=== PATIENT | female | born 1925 | race Caucasian/White ===

== ENCOUNTER 2016-11-12 09:52 | Inpatient (IN) ==
[2016-11-12] MEDS ORDERED: ONDANSETRON 4 MG/2 ML VIAL IV STA (10:36)
[2016-11-12 10:41] LABS: Basophils # 0.1 10*3/uL (0.0-0.2); Basophils % 0.5 % (0.0-0.8); Eosinophils # 0.1 10*3/uL (0.0-0.87); Eosinophils % 0.4 % (0.00-10.9); Hematocrit 42.3 VOL% (35.7-47.0); Hemoglobin 14.8 GM/DL (12.0-16.0); Immature Granulocytes % 0.5 %; Immature Granulocytes Absolute 0.07 #; Lymphocytes # 1.8 10*3/uL (1.4-4.0); Lymphocytes % 11.7 % (21.3-54.2); Mean Corpuscular Hemoglobin 31 PG (27-34); Mean Corpuscular Volume 89.4 FL (87-102); Mean Platelet Volume 9.6 FL (9.6-12.0); Monocytes # 2.2 10*3/uL (0.11-0.8); Monocytes % 14.2 % (1.7-12.7); Neutrophils # 11.3 10*3/uL (1.4-7.4); Neutrophils % 72.7 % (38.7-73.9); Platelet Count 215 T/CUMM (130-400); Red Blood Count 4.73 MC/CUMM (3.8-5.5); Red Cell Distribution Width 13.2 % (9.3-17.3); White Blood Count 15.5 T/CUMM (4-12)
[2016-11-12 10:47] LABS: Apearance,Urine CLEAR (Clear); Bilirubin,Urine Negative (Negative); Blood, Urine Negative (Negative); Glucose,Urine (UA) Negative (Negative); Ketones,Urine Negative (Negative); Nitrite,Urine Negative (Negative); Protein,Urine Negative; RBC,Urine <1 /HPF (0-4); Urine Color Straw (Yellow); Urine Specific Gravity 1.004 (1.001-1.035); Urine Urobilinogen < 2.0 EU/DL (0.2-1.0); WBC,Urine <1 /HPF (0-6)
[2016-11-12] MEDS ORDERED: ONDANSETRON 4 MG/2 ML VIAL ONE (10:47)
[2016-11-12 10:52] LABS: Albumin 3.5 G/DL (3.4-5.0); Bilirubin,Total 0.7 MG/DL (0.2-1.0); Calcium 9.6 MG/DL (8.5-10.1); Osmolality,Calculated 268.5 MOS/KG (273-304); Potassium 3.2 MMOL/L (3.5-5.1); Total Protein 8.8 G/DL (6.4-8.3)
--- NOTE | 2016-11-12 11:13 | Emergency Department Note ---
Arrival - Arrival Chief Complaint: Non-Specific Stated Complaint: rectal pain ED Nursing Triage Note: 1-WEEK HX OF RECTAL PAIN-DENIES BLEEDING-DENIES CONSTIPATION Mode of Arrival: Stretcher Source: Patient Time Seen by Provider: 11/12/16 10:08 - History of Present Illness HPI Narrative: 89 y/o white female presents to the ER complaining of rectal pain and abdominal distention. Symptoms started 1 week ago. Describes rectal pain as a fullness. Denies rectal bleeding, abdominal pain, fever, or N/V. Past medical history significant for appendectomy, A-fib, CHF, total hyst, HTN, GERD, and hypothyroidism. Currently taking Eliquis for her A-fib. Primary Care Physician: Dr. Campuzano GI: Dr. John Cardiology: Dr. Tobar Onset (ago): week(s) (1) Consistency: constant Severity: mild Quality: fullness Allergies/Adverse Reactions: Allergies Allergy/AdvReac Type Severity Reaction Status Date / Time acetaminophen [From Lortab] Allergy HIVES Verified 09/21/16 11:00 hydrocodone [From Lortab] Allergy HIVES Verified 09/21/16 11:00 Home Medications: Home Medications Medication Instructions Recorded Confirmed Type Apixaban [Eliquis] 2.5 mg PO BID 09/21/16 11/12/16 History Aspirin EC Tab 81 mg PO QPM 09/21/16 11/12/16 History Calcium (Carb)/Vit D 600-400 2 tablet PO QPM 09/21/16 11/12/16 History [Caltrate 600 + D] Carvedilol [Coreg] 3.125 mg PO BID 09/21/16 11/12/16 History Chlorthalidone 25 mg PO QAM 09/21/16 11/12/16 History Esomeprazole Magnesium 40 mg PO QPM 09/21/16 11/12/16 History [Esomeprazole] Furosemide Tab [Lasix Tab] 40 mg PO QAM 09/21/16 11/12/16 History Gabapentin Cap/Tab [Neurontin 300 mg PO TID 09/21/16 11/12/16 History Cap/Tab] Montelukast Tab [Singulair Tab] 10 mg PO BEDTIME 09/21/16 11/12/16 History Multivitamin [Multivitamins] 1 each PO QPM 09/21/16 11/12/16 History Potassium Chloride Cap/Tab [K Dur] 20 meq PO BID 09/21/16 11/12/16 History Thyroid,Pork [[place] Thyroid] 90 mg PO QAM 09/21/16 11/12/16 History Tramadol HCl [Tramadol Tab] 50 mg PO Q6H PRN 09/21/16 11/12/16 History Review of System - Review of System 12 point system: reviewed and no additional remarkable complaints except as stated - Review of System Gastrointestinal: Present: abdominal pain (distention ), other (rectal pain ) Exam Vital Signs: Vital Signs Temperature 97.6 F 11/12/16 11:00 Pulse Rate 83 11/12/16 12:14 Respiratory Rate 20 11/12/16 12:14 Blood Pressure 163/102 11/12/16 12:14 O2 Sat by Pulse Oximetry 98 11/12/16 12:14 - General General appearance: alert, in no apparent distress - ENT ENT exam: Present: normal exam, normal oropharynx, mucous membranes moist - Chest Chest inspection: Present: normal inspection - Respiratory Respiratory exam: Present: normal lung sounds bilaterally - Cardiovascular Cardiovascular exam: Present: regular rate, normal rhythm, normal heart sounds - Abdominal Exam Abdominal exam: Present: soft, normal bowel sounds. Absent: tenderness - Rectal Exam Rectal exam: Present: normal rectal tone, heme (+) stool - Extremities Exam Extremities exam: Present: normal inspection, full ROM - Neurological Exam Neurological exam: Present: alert, oriented X3 - Psychiatric Psychiatric exam: Present: normal affect, normal mood - Skin Skin exam: Present: warm, dry Course - Consultations Consultation #1: Dr. Wright Time: 12:05 (Discussed with Dr. Wright. Dr. Wright will come see patient in Er. ) Consultation #2: Hospitalist Time: 12:30 (Will admit to Hospitalist ) Results - Labs CBC & BMP: 11/12/16 10:00 11/12/16 10:00 Lab Results: I have reviewed the patients labs - Diagnostic Findings Procedure: CT Abdomen and Pelvis: image reviewed by me, report reviewed by me ( 1. within the left pelvis, immediately adjacent to the sigmoid colon there is 5.6 x 3.4 cm thick-walled fluid collection containing air. There is extensive diverticulosis. This most likely represents a diverticulitis, with perforation and abscess formation. A zeynep likey consideration is a nectrotic colonic malignancy. ) Disposition Clinical Impression: Diverticulitis, Abscess Disposition: Still a Patient Condition: Stable
--- NOTE | 2016-11-12 11:31 | CT Report ---
CT of the abdomen and pelvis with intravenous contrast. No oral contrast was administered. 100 cc Omni 350. Axial images were obtained with sagittal and coronal reconstructions. No previous study. Indication: Abdominal distention. Rectal pain. Hematochezia. The heart is enlarged. There is coronary artery calcification. There is no pericardial effusion. There is no pleural effusion. There is scarring within the lung bases. There is a borderline enlarged 10 mm lymph node in the right inferior hilum. The liver is normal in size and density. There are no focal liver lesions identified. There is no intrahepatic biliary ductal dilatation. The spleen is normal in size. There is a small hiatal hernia. There is pancreatic atrophy present. There is no adrenal enlargement. The kidneys demonstrate mild bilateral cortical thinning and multiple cortical cysts are present. No hydronephrosis. No hydroureter. The urinary bladder presents a normal appearance. The abdominal aorta is of normal caliber. It is tortuous and contains calcific plaque within its wall. There is an umbilical hernia which contains only fat. The gastric contour is grossly normal. The loops of small intestine are not dilated. The terminal ileum presents a normal appearance. The appendix is not discretely seen. Within the transverse colon, diverticula are identified. Within the descending colon and sigmoid colon, diverticuli are identified. Within the left pelvis, immediately adjacent to the sigmoid colon, there is a 5.6 x 3.8 cm fluid collection with a thick wall which contains aorta. There is surrounding inflammation. I suspect that it communicates with the colon, but without contrast, that cannot be completely determined. The pelvic organs appear to have been removed. No free fluid is noted within the pelvis, and no free air is identified. Within the spinal column there is scoliosis and degenerative change, with anterior wedging at the thoracolumbar junction. There is malalignment with grade 1 spondylolisthesis of L5 on S1. The osseous structures are diffusely demineralized, and orthopedic hardware is present in the left femur. Impression: 1. Within the left pelvis, immediately adjacent to the sigmoid colon, there is a 5.6 x 3.4 cm thick-walled fluid collection containing air. There is extensive diverticulosis. This most likely represents a diverticulitis, with perforation and abscess formation. A less likely consideration is a necrotic colonic malignancy. 2. Bilateral renal cysts. 3. Hiatal hernia. 4. Umbilical hernia containing only fat. 5. Borderline enlarged right infrahilar lymph node. The CT exam was performed using one or more of the following dose reduction techniques: Automated exposure control, adjustment of the mA and/or kV according to patient size, or use of iterative reconstruction technique. PROCEDURE INTERPRETED AT [facility] DEPARTMENT OF RADIOLOGY Final Report Signed by: Dr. Dariela Lynn
[2016-11-12] MEDS ORDERED: PIPERACILLIN/TAZOBACTAM 3,375 MG in SODIUM CHLORIDE 0.9% 100 ML IV STA (11:59)
[2016-11-12] MEDS ORDERED: SODIUM CHLORIDE 0.9% 500 ML IV STA (11:59)
[2016-11-12] MEDS ORDERED: metroNIDAZOLE INJ 500 MG in PREMIX 1 EACH IV STA (11:59)
[2016-11-12] MEDS ORDERED: metroNIDAZOLE 500 MG/100 ML PREMIX IV ONE (12:03)
[2016-11-12] MEDS ORDERED: PANTOPRAZOLE 40 MG VIAL IV ONE (12:54)
[2016-11-12] MEDS ORDERED: SODIUM CHLORIDE 0.9% 1,000 ML IV SCH (13:00)
[2016-11-12] MEDS ORDERED: PIPERACILLIN/TAZOBACTAM 3,375 MG in SODIUM CHLORIDE 0.9% 100 ML IV SCH (13:00)
[2016-11-12 13:15] LABS: Risk Ratio 1.89; Thyroid Stimulating Hormone 0.884 uIU/ml (0.358-3.74); VLDL CHOLESTEROL 16.4 MG/DL
--- NOTE | 2016-11-12 13:29 | Hospitalist History & Physical ---
<Nish King - Last Filed: 11/12/16 13:16> Assessment and Plan (1) Atrial fibrillation Status: Acute Assessment and plan: The patient currently takes Eliquis for the management of her atrial fibrillation. We will Place Eliquis on hold for now due to the presence of an active bleed. We will consult cardiology to evaluate and assist during the clinical encounter. Current Visit: Yes (2) Hypokalemia Status: Acute Assessment and plan: Potassium noted 3.2. We will correct and recheck in a.m. Current Visit: Yes (3) Abscess Status: Acute Assessment and plan: The patient was seen and evaluated by surgery. The plan is to possibly perform a percutaneous drainage home tomorrow. We will stop Eliquis for now. We will start empiric antibiotics, cefepime and Flagyl. Current Visit: Yes (4) Diverticulitis Status: Acute Assessment and plan: We will start empiric antibiotics and gently rehydrate. We will consult GI to evaluate and assist in the clinical encounter. Current Visit: Yes History of Present Illness Chief complaint: Rectal pain and abdominal distention History of present illness: This is a very pleasant 89-year-old female that presented to the [facility] this afternoon for the evaluation of rectal pain and abdominal distention. The patient has a very complex medical history significant for: Congestive heart failure, atrial fibrillation, hypertension, hypothyroidism, and diverticulitis. The patient reports a surgical history of appendectomy and hysterectomy. The patient reported the onset of symptoms 1 week prior to presentation. She describes the rectal pain as a feeling of continuous "fullness" accompanied with abdominal distention. Pertinent positives include: Rectal pain and abdominal distention; pertinent negatives include: Fever, nausea, vomiting, rectal bleeding, chills, and flatulence. The patient was noted to be grossly hypertensive at the time of presentation, with the blood pressure noted at 163/102. Upon rectal examination, stools were noted to be heme positive. Labs were obtained; hematology panel reported a white blood cell count of 15.5, hemoglobin of 14.8, hematocrit of 42.3, and platelet count of 215. Chemistry panel was obtained which reported: Sodium at 132, potassium at 3.2, chloride at 92, BUN at 21, creatinine at 1.10, glucose at 133, calcium at 9.6, calculated osmolality at 268.5, total protein at 8.8, total bilirubin at 0.70, AST at 15, ALT at 18, alkaline phosphatase at 93, albumin at 3.5, globulin at 5.3. Lipid panel reported triglycerides at 82, cholesterol at 121, LDL cholesterol at 54, VLDL cholesterol at 60.4, and HDL cholesterol at 64. TSH was noted at 0.884. Urinalysis was essentially negative however urobilinogen was noted at greater than 2. CT abdomen pelvis was obtained which reported a 5.6 x 3.4 cm thick walled fluid collection containing air within the left pelvis immediately adjacent to the sigmoid colon. There was extensive diverticulosis which most likely represented diverticulitis with perforation and abscess formation. In addition CT abdomen and pelvis reported bilateral renal cyst, hiatal hernia, umbilical hernia containing only fat, and borderline enlarged right infrahilar lymph node. After brief discussion with NATHAN Dolan and Dr. Burnett, the patient will be admitted to hospitalist services for continuation of care. A surgical consult has been requested and the patient was evaluated by Dr. Wright in the fast track area. We will consult cardiology and gastroenterology to evaluate and assist during the clinical encounter. Home Medications Medication Instructions Recorded Confirmed Type Apixaban [Eliquis] 2.5 mg PO BID 09/21/16 11/12/16 History Aspirin EC Tab 81 mg PO BEDTIME 09/21/16 11/12/16 History Calcium (Carb)/Vit D 600-400 2 tablet PO BEDTIME 09/21/16 11/12/16 History [Caltrate 600 + D] Carvedilol [Coreg] 3.125 mg PO BID 09/21/16 11/12/16 History Chlorthalidone 25 mg PO QAM 09/21/16 11/12/16 History Esomeprazole Magnesium 40 mg PO BEDTIME 09/21/16 11/12/16 History [Esomeprazole] Furosemide Tab [Lasix Tab] 40 mg PO QAM 09/21/16 11/12/16 History Gabapentin Cap/Tab [Neurontin 300 mg PO TID 09/21/16 11/12/16 History Cap/Tab] Montelukast Tab [Singulair Tab] 10 mg PO BEDTIME 09/21/16 11/12/16 History Multivitamin [Multivitamins] 1 each PO QPM 09/21/16 11/12/16 History Potassium Chloride Cap/Tab [K Dur] 20 meq PO BID 09/21/16 11/12/16 History Thyroid,Pork [[place] Thyroid] 90 mg PO QAM 09/21/16 11/12/16 History Tramadol HCl [Tramadol Tab] 50 mg PO Q6H PRN 09/21/16 11/12/16 History Ciprofloxacin HCl [Ciprofloxacin 1 drop LEFT EYE BID 11/12/16 11/12/16 History 0.3% Oph Soln] Ketorolac Tromethamine [Ketorolac 1 drop LEFT EYE BID 11/12/16 11/12/16 History 0.5% Oph Soln] prednisoLONE acetate [Prednisolone 1 drop LEFT EYE BID 11/12/16 11/12/16 History Acetate] Allergies Allergy/AdvReac Type Severity Reaction Status Date / Time acetaminophen [From Lortab] Allergy HIVES Verified 09/21/16 11:00 hydrocodone [From Lortab] Allergy HIVES Verified 09/21/16 11:00 Exam - Constitutional Vitals: Period Temp Pulse Resp BP Sys/Conroy Pulse Ox Last 24 Hr 97.6 F 83-87 20-20 142-163/77-102 97-98 General appearance: normal weight, no acute distress - Head Head exam: Present: normal inspection, normocephalic, atraumatic - Eye Eye exam: Present: EOMI. Absent: conjunctival injection Pupils: Present: YU, normal accommodation - ENT ENT exam: Present: normal exam, normal external ear exam, normal oropharynx - Neck Neck exam: Present: normal inspection. Absent: lymphadenopathy, meningismus, thyromegaly - Respiratory Respiratory exam: Present: clear to auscultation bilaterally. Absent: rales, rhonchi, stridor, wheezes - Cardiovascular Cardiovascular exam: Present: regular rate and rhythm. Absent: carotid bruit, diastolic murmur, gallop, JVD, rubs, systolic murmur - GI/Abdominal GI/Abdominal exam: Present: normal bowel sounds, distended, other (Rectal tenderness) - Extremities Exam Extremities exam: Present: normal inspection, normal capillary refill, full ROM. Absent: edema - Back Exam Back exam: Present: normal inspection - Neurological Exam Neurological exam: Present: alert, oriented X3, CN II-XII intact - Psychiatric Psychiatric exam: Present: normal affect, normal mood - Skin Skin exam: Present: normal color, warm, dry Results - Labs CBC & BMP: 11/12/16 10:00 11/12/16 10:00 Lab Results: I have reviewed the past 24 hour labs Quality Measures - VTE Contraindication to Pharmacological VTE Prophylaxis: Clinical assessment deems Pt at low risk, no prophalaxis needed <Afua Burnett - Last Filed: 11/12/16 17:38> History of Present Illness History of present illness: Ms. Alatorre is a 89 year old female who is being admitted for a diverticular abscess. GI has been consulted and it would be drained. Exam - Constitutional Vitals: Period Temp Pulse Resp BP Sys/[place] Pulse Ox Last 24 Hr 97.6 F-97.9 F 80-87 17-20 137-163/77-102 97-98 Results - Labs CBC & BMP: 11/12/16 10:00 11/12/16 10:00
--- NOTE | 2016-11-12 14:50 | General Surg History&Physical ---
History of Present Illness Chief complaint: Abdominal pain History of present illness: Ms. Alatorre is a 89 year old female presented to [facility] with abdominal pain and rectal pain. [facility]. She denies fever. Her vital signs are stable. CT has confirmed diverticulitis with an abscess. Impression: Diverticulitis with abscess Plan: Patient's vitals are stable, she has no peritonitis. Will plan for admission and should her Eliquis will be held. Will consult interventional radiology in the morning for percutaneous drainage. Antibiotics. Home Medications Medication Instructions Recorded Confirmed Type Apixaban [Eliquis] 2.5 mg PO BID 09/21/16 11/12/16 History Aspirin EC Tab 81 mg PO BEDTIME 09/21/16 11/12/16 History Calcium (Carb)/Vit D 600-400 2 tablet PO BEDTIME 09/21/16 11/12/16 History [Caltrate 600 + D] Carvedilol [Coreg] 3.125 mg PO BID 09/21/16 11/12/16 History Chlorthalidone 25 mg PO QAM 09/21/16 11/12/16 History Esomeprazole Magnesium 40 mg PO BEDTIME 09/21/16 11/12/16 History [Esomeprazole] Furosemide Tab [Lasix Tab] 40 mg PO QAM 09/21/16 11/12/16 History Gabapentin Cap/Tab [Neurontin 300 mg PO TID 09/21/16 11/12/16 History Cap/Tab] Montelukast Tab [Singulair Tab] 10 mg PO BEDTIME 09/21/16 11/12/16 History Multivitamin [Multivitamins] 1 each PO QPM 09/21/16 11/12/16 History Potassium Chloride Cap/Tab [K Dur] 20 meq PO BID 09/21/16 11/12/16 History Thyroid,Pork [[place] Thyroid] 90 mg PO QAM 09/21/16 11/12/16 History Tramadol HCl [Tramadol Tab] 50 mg PO Q6H PRN 09/21/16 11/12/16 History Allergies Allergy/AdvReac Type Severity Reaction Status Date / Time acetaminophen [From Lortab] Allergy HIVES Verified 09/21/16 11:00 hydrocodone [From Lortab] Allergy HIVES Verified 09/21/16 11:00 Medical,Surgical,& Family Hx - Medical History Cardio: History of: Cardiac Dysrhythmia (afib), Hypertension Psychological: No history of: Anxiety Disorders, ADHD, Behavior Problems, Bipolar Disorder, Depression, Previous Suicide Attempt, Psychiatric/Substance Abuse Tx, Schizophrenia, Violent Behavior, Psychiatric Problems HEENT: No history of: Ear Problem, Eye Problem, Dental Problems, Glaucoma, Oral Cancer, HEENT Problems Gastrointestinal: History of: Gastrointestinal Bleed (pt was on xarelto) Hematology: No history of: Blood Transfusion Reaction - Surgical History Orthopedic Surgeries: Surgical HX of;: Orthopedic Surgery (bilat knees and femur fractures) - Family History Family History: Reports;: Family Heart Disease - Social History Smoking Status: Unknown if ever smoked Frequency of Alcohol Use: None Type of Drug Use: None Exam - Constitutional Vitals: Period Temp Pulse Resp BP Sys/[place] Pulse Ox Last 24 Hr 97.6 F-97.9 F 80-87 20-20 142-163/77-102 97-98 General appearance: no acute distress - Head Head exam: Present: normocephalic - Neck Neck exam: Present: normal inspection - Respiratory Respiratory exam: Present: clear to auscultation bilaterally - GI/Abdominal GI/Abdominal exam: Present: soft (Mild to moderate tenderness to palpation in the suprapubic and left lower quadrant. No peritoneal signs. Nondistended.) - Extremities Exam Extremities exam: Present: normal inspection - Back Exam Back exam: Present: normal inspection - Neurological Exam Neurological exam: Present: alert, oriented X3 Speech: Present: normal - Skin Skin exam: Present: normal color 12 point system: reviewed and no additional remarkable complaints except as stated Quality Measures - VTE Contraindication to Pharmacological VTE Prophylaxis: Clinical assessment deems Pt at low risk, no prophalaxis needed Results - Labs CBC & BMP: 11/12/16 10:00 11/12/16 10:00 Lab Results: I have reviewed the past 24 hour labs
[2016-11-12] MEDS: SODIUM CHLORIDE 0.9% 1,000 ML IV SCH (15:18)
[2016-11-12] MEDS: PANTOPRAZOLE 40 MG VIAL IV SCH (15:19)
[2016-11-12] MEDS: CEFEPIME 2,000 MG in SODIUM CHLORIDE 0.9% 100 ML IV SCH (15:22)
--- NOTE | 2016-11-12 16:36 | Cardiology Consult Note ---
Elver Cameron Vanessa, RN, am scribing for, and in the presence of, Jario Roy MD 16:31. Assessment and Plan - Time spent with patient Time spent with patient: Greater than 30 minutes (due to assessment, planning, documentation, med review) (1) Atrial fibrillation Status: Chronic Assessment and plan: Ventricular response has been well controlled with low-dose beta-nicholas. Chronically anticoagulated with Eliquis for stroke prevention. We will need to resume this once cleared from a surgical standpoint. Current Visit: Yes Qualifiers: Atrial fibrillation type: persistent Qualified Code(s): I48.1 - Persistent atrial fibrillation (2) Chronic anticoagulation Status: Acute Assessment and plan: Eliquis for stroke prevention. Resume when possible. Current Visit: Yes (3) Diverticulitis Status: Acute Assessment and plan: This is being managed per surgical services. Patient to be scheduled for percutaneous abscess drainage tomorrow, and she has been started on IV Flagyl and Maxipime. Current Visit: Yes (4) Hypokalemia Status: Acute Assessment and plan: Potassium is 3.2. Will replete. Current Visit: Yes (5) Hx of heart failure Status: Chronic Assessment and plan: This was due to diastolic dysfunction in 2013 during new onset atrial fibrillation. Clinically, she remains well compensated since that time. Normal systolic function and LV ejection fraction is 55%.. Current Visit: Yes (6) Hypertension Status: Chronic Assessment and plan: This is overall fairly well controlled. Current Visit: Yes (7) Hypothyroidism Status: Chronic Assessment and plan: Chronic. Current Visit: Yes (8) GERD (gastroesophageal reflux disease) Status: Chronic Assessment and plan: PPI continued. Current Visit: Yes History of Present Illness - Data of Consult Consult date: 11/12/16 Requesting Physician: Afua Burnett Primary care physician: Sejal Campuzano - Consult Narrative Reason for consult: diverticulitis, Hx atrial fib with chronic anticoagulation History of present illness: PRIMARY FREQUENCY CHECKER: DR. HARRISON FREQUENCY CHECKER CONSULT NOTE: DIVERTICULITIS, HX ATRIAL FIB WITH CHRONIC ANTICOAGULATION: Ms. Alatorre is a 89 year old white female with risk factors significant for: Age , hypertension, family history of CAD. She has never smoked. Past medical history includes hypothyroidism, persistent atrial fibrillation, and she is chronically anticoagulated with low-dose Eliquis. She has a history of having a GI bleed while on Xarelto secondary to Hafsa-Laguna tear. She did require transfusion with 2 units PRBC. Patient is routinely followed by Dr. Harrison, and she was last seen at [facility] by him on October 07 for routine appointment, and she was having some dyspnea worsened with exertion. Echocardiogram obtained showed normal systolic function with LV ejection fraction of 55%, mild enlargement of RA, severe dilation of LA, mild MR and mild TR with PA pressure 29 mmHg. Left lower extremity venous ultrasound as she was having some left lower extremity swelling, and ultrasound revealed no thrombus. Patient presented to the emergency room earlier this morning complaining of abdominal distention and a rectal pain for approximately 1 week. Patient has not had any abdominal pain, bright red bleeding, dark or tarry stools, fever, nausea or vomiting. CT of the abdomen consistent with findings for diverticulitis with perforation and abscess formation. Patient has been admitted to [facility] for [facility] medicine. Gastroenterology and surgical services has been consulted. Cardiology is asked to see this patient has history of A. fib with use of chronic anticoagulation. Patient seen and examined. There is no family present at time of exam and interview. Patient reports that she has been in her normal state of health since last seen Dr. Fisher in clinic. She reports that she has had a fall at home approximately 1 month ago after getting tripped up in an electrical cord, losing her balance, and using the left forearm to break her fall. Her left forearm is casted. Denies recent or current chest pain or discomfort, shortness of breath, orthopnea, PND, palpitation, increasing lower extremity edema. No recent cough, fever, chills. Her atrial fibrillation has been well controlled with low-dose beta-nicholas, and she does routinely take Eliquis and a baby aspirin. Blood pressure is overall fairly stable. Systolic ranging 140- 150 mmHg. Transient hypertension 163/102 while in the ER. Labs reviewed. WBC 15,500. H&H 14.8/42.3. Sodium 132. Potassium 3.2. Cardiac samuel she has been stable. CC: Afua Burnett MD - Home Medications and Allergies Home Medications: Home Medications Medication Instructions Recorded Confirmed Type Apixaban [Eliquis] 2.5 mg PO BID 09/21/16 11/12/16 History Aspirin EC Tab 81 mg PO BEDTIME 09/21/16 11/12/16 History Calcium (Carb)/Vit D 600-400 2 tablet PO BEDTIME 09/21/16 11/12/16 History [Caltrate 600 + D] Carvedilol [Coreg] 3.125 mg PO BID 09/21/16 11/12/16 History Chlorthalidone 25 mg PO QAM 09/21/16 11/12/16 History Esomeprazole Magnesium 40 mg PO BEDTIME 09/21/16 11/12/16 History [Esomeprazole] Furosemide Tab [Lasix Tab] 40 mg PO QAM 09/21/16 11/12/16 History Gabapentin Cap/Tab [Neurontin 300 mg PO TID 09/21/16 11/12/16 History Cap/Tab] Montelukast Tab [Singulair Tab] 10 mg PO BEDTIME 09/21/16 11/12/16 History Multivitamin [Multivitamins] 1 each PO QPM 09/21/16 11/12/16 History Potassium Chloride Cap/Tab [K Dur] 20 meq PO BID 09/21/16 11/12/16 History Thyroid,Pork [Malcolm Thyroid] 90 mg PO QAM 09/21/16 11/12/16 History Tramadol HCl [Tramadol Tab] 50 mg PO Q6H PRN 09/21/16 11/12/16 History Allergies/Adverse Reactions: Allergies Allergy/AdvReac Type Severity Reaction Status Date / Time acetaminophen [From Lortab] Allergy HIVES Verified 09/21/16 11:00 hydrocodone [From Lortab] Allergy HIVES Verified 09/21/16 11:00 - Constitutional Constitutional: Absent: chills, daytime sleepiness, excessive sweating, fatigue , fever(s), frequent falls, weakness, weight gain, weight loss - EENT Eyes: Absent: blurry vision, loss of vision Ears: Absent: decreased hearing Nose, mouth and throat: Absent: dysphagia, epistaxis, lip swelling, nasal congestion, neck pain, sore throat, throat swelling, tongue swelling - Cardiovascular Cardiovascular: Present: dyspnea on exertion. Absent: chest pain at rest, chest pain with activity, claudication, diaphoresis, dyspnea, edema, radiating jaw, neck or arm pain, lightheadedness, orthopnea, palpitations, PND - Respiratory Respiratory: Present: dyspnea on exertion. Absent: cough, dyspnea, hemoptysis, pain on inspiration, change in phlegm color - Gastrointestinal Gastrointestinal: Present: bloating. Absent: abdominal pain, constipation, diarrhea, dysphagia, melena, nausea, vomiting, jaundice - Genitourinary Genitourinary: Absent: difficulty urinating, dysuria, flank pain, hematuria - Musculoskeletal Musculoskeletal: Absent: arthralgias, back pain - Neurological Neurological: Absent: abnormal gait, abnormal speech, confusion, dizziness, syncope, tremor(s) - Psychiatric Psychiatric: Absent: anxiety, depression - Endocrine Endocrine: Absent: cold intolerance, heat intolerance - Hematologic/Lymphatic Hematologic/Lymphatic: Absent: easy bleeding, easy bruising Medical,Surgical,& Family Hx - Medical History Cardio: History of: Cardiac Dysrhythmia, CHF, Hypertension, Valvular Heart Disease No history of: CAD, [place], PVD Psychological: No history of: Anxiety Disorders, Depression Neurology: No history of: Cerebrovascular Accident, Dementia, TIA Endocrine: History of: Thyroid Disorder No history of: Diabetes Mellitus (IDDM), Diabetes Mellitus (NIDDM), Dyslipidemia Respiratory: No history of: COPD, Obstructive Sleep Apnea, Pulmonary Embolism Renal: No history of: Dialysis, Renal Failure Genitourinary: No history of: Recurring Urinary Tract Infections Gastrointestinal: History of: Diverticulitis/ Diverticulosis, GERD, Gastrointestinal Bleed Musculoskeletal: No history of: Back/Neck Problems Hematology: History of: Anemia (with acute GI bleed) No history of: Blood Transfusion Reaction Reproductive: History of: Reproductive Problems (fibercystic breast disease) Other: No history of: Cancer - Surgical History Abdominal Surgeries: Surgical HX of: Colonoscopy, EGD Reproductive Surgeries: Surgical HX of;: Genitourinary Surgery (bladder sx), Hysterectomy Orthopedic Surgeries: Surgical HX of;: Orthopedic Surgery (right knee, right hip ) - Social History Smoking Status: Never smoker Physical Examination Vital Signs Resp 20 // 09:57 General: Present: No Apparent Distress, Other HEENT: Present: PERRL, Normocephaly (Elderly). Absent: Pallor Neck: Present: Supple Neck, Midline Trachea, No JVD/HJR, No Masses, No Bruit Cardiac: Present: Irregularly Regular. Absent: Tachycardia, Bradycardia Lungs: Present: Clear Ascult./Percussion, No Wheeze, Rales, Rhonchi. Absent: Oxygen Neuro: Present: Grossly Intact. Absent: Numbness, Tingling, Weakness, Resting Tremor, Essential Tremor Abdomen: Present: Soft, Active Bowel Sounds, No Masses, No Pulsations/Bruits. Absent: Ascites, Tender, Firm, Distended Skin: Present: Clear. Absent: Rash, Suspicious Lesions Musculoskeletal: Present: No Fluid Collection Extremities: Present: No Clubbing, No Cyanosis, Normal Upper Extr. Pulses (3+ bilateral), Normal Lower Extr. Pulses (3+ bilaterally), Edema (minimal trace to left lower extremity), Capillary Refill (normal) Result/EKG - Labs CBC & BMP: 11/12/16 10:00 11/12/16 10:00 Lab Results: I have reviewed the past 24 hour labs Labs: Laboratory Results - last 24 hr 11/12/16 11/12/16 11/12/16 10:00 10:00 10:00 WBC 15.5 H RBC 4.73 Hgb 14.8 Hct 42.3 MCV 89.4 MCH 31 MCHC 35.0 RDW 13.2 Plt Count 215 MPV 9.6 Neut % (Auto) 72.7 Lymph % (Auto) 11.7 L Wilson % (Auto) 14.2 H Eos % (Auto) 0.4 Baso % (Auto) 0.5 Neut # (Auto) 11.3 H Lymph # (Auto) 1.8 Wilson # (Auto) 2.2 H Eos # (Auto) 0.1 Baso # (Auto) 0.1 Immature Gran % 0.5 Nucleated RBC % 0.0 Immature Gran # 0.07 Nucleated RBCs # 0.00 Sodium 132 L Potassium 3.2 L Chloride 92 L Carbon Dioxide 30 Anion Gap 13.2 BUN 21 H Creatinine 1.10 H GFR Calculation 44 BUN/Creatinine Ratio 19.00 Glucose 133 H Calculated Osmolality 268.5 L Calcium 9.6 Total Bilirubin 0.70 AST 15 ALT 18 Alkaline Phosphatase 93 Total Protein 8.8 H Albumin 3.5 Globulin 5.3 H Albumin/Globulin Ratio 0.6 L Triglycerides Cholesterol LDL Cholesterol VLDL Cholesterol HDL Cholesterol Heart Disease Risk Ratio TSH 3rd Generation Urine Color Straw Urine Appearance Clear Urine pH 6.0 Ur Specific [place] 1.004 Urine Protein Negative Urine Glucose (UA) Negative Urine Ketones Negative Urine Blood Negative Urine Nitrate Negative Urine Bilirubin Negative Urine Urobilinogen < 2.0 H Urine Leukocytes Negative Urine RBC <1 Urine WBC <1 Ur Culture Indicated? Not indicated 11/12/16 10:00 WBC RBC Hgb Hct MCV MCH MCHC RDW Plt Count MPV Neut % (Auto) Lymph % (Auto) Wilson % (Auto) Eos % (Auto) Baso % (Auto) Neut # (Auto) Lymph # (Auto) Wilson # (Auto) Eos # (Auto) Baso # (Auto) Immature Gran % Nucleated RBC % Immature Gran # Nucleated RBCs # Sodium Potassium Chloride Carbon Dioxide Anion Gap BUN Creatinine GFR Calculation BUN/Creatinine Ratio Glucose Calculated Osmolality Calcium Total Bilirubin AST ALT Alkaline Phosphatase Total Protein Albumin Globulin Albumin/Globulin Ratio Triglycerides 82 Cholesterol 121 LDL Cholesterol 54.0 VLDL Cholesterol 16.4 HDL Cholesterol 64 H Heart Disease Risk Ratio 1.89 TSH 3rd Generation 0.884 Urine Color Urine Appearance Urine pH Ur Specific [place] Urine Protein Urine Glucose (UA) Urine Ketones Urine Blood Urine Nitrate Urine Bilirubin Urine Urobilinogen Urine Leukocytes Urine RBC Urine WBC Ur Culture Indicated? - Diagnostic Findings Procedure: CT Abdomen and Pelvis: image reviewed by me, report reviewed by me - EKG EKG results: interpreted by me, no acute changes Quality Measures - VTE Contraindication to Pharmacological VTE Prophylaxis: Clinical assessment deems Pt at low risk, no prophalaxis needed IKirill John Timothy, MD, personally performed the services described in this documentation, ascribed by Sidra Raya RN in my presence, and it is both accurate and complete [id number] .
--- NOTE | 2016-11-12 16:56 | Gastrointestinal Consult Note ---
Assessment and Plan (1) Diverticulitis of large intestine with abscess without bleeding Status: Acute Assessment and plan: The patient is having diverticulitis of her sigmoid colon with abscess formation , this will likely require percutaneous drain if not surgery. She is being treated with metronidazole and cefepime and will continue to monitor her white blood cell count to see if this improves spontaneously. She may need repeat colonoscopy to rule out colon cancer but this is unlikely given the fact that she had previous colonoscopy done by Dr. Mcallister back in November 2009. This will need to be down the road at least a month or 2. She does have prior history of polyps and so recheck may be helpful at this point. Given the patient's age I had not planned on looking again but given this recent development will make arrangements to recheck as an outpatient. Current Visit: Yes (2) Gastritis Status: Acute Assessment and plan: Patient is being controlled for this condition on Nexium. She finds her self on Eliquis now but is doing adequately concerning the previous anemia that she had had back during her prior bleed. We will continue to watch her and see if she develops symptoms again and observe for melena. Current Visit: Yes (3) GERD (gastroesophageal reflux disease) Status: Chronic Assessment and plan: No symptoms of reflux at this time. Current Visit: Yes (4) Personal history of colonic polyps Status: Acute Assessment and plan: The patient has a prior history of polyps back before her last colonoscopy in November 2009. We will recheck her for further polyps when we do her next colonoscopy in January 2017 after she is improved from the current illness. Current Visit: Yes History of Present Illness Chief complaint: Sigmoid diverticulitis with abscess. History of present illness: Ms. Alatorre is a 89 year old female who is known to me from previous evaluation under the care of Dr. Fisher and Dr. Facundo Campuzano after taking Xarelto and was admitted to [place] between 01/30/16 and 01/31/16 at which time an upper endoscopy was done on 01/31/16 because of a drop in the patient's hematocrit and melena. It was thought that the patient may have had a healing Hafsa-Laguna tear versus erosive esophagitis at the EG junction and mild gastritis was seen which was biopsied. Her hematocrit has improved by the time she was seen back in the clinic on 06/23/16 and had improved up to 40.9 with a hemoglobin of 14.2. The patient's last colonoscopy was performed on 12/12/[address] Mcallister with the findings of diverticulosis. She had a prior history of polyps but none were found on the last colonoscopy. She has been seen most recently in the hospital off of iron and on Nexium 40 mg prior to suppertime. Her hematocrit had improved to 43.6 with a hemoglobin of 14.4 at that point and she was off of Xarelto but has recently been started back on Eliquis. She should be protected by the Nexium that she is taking at this time. Patient has been feeling increasing left lower quadrant pain over the last 1 week and the pain got to be so severe today that she was persuaded to come into the emergency room for evaluation. She has been having some slight fevers and chills. White blood cell count had increased to 15.5 with hematocrit currently of 42.3 and a hemoglobin of 14.8 g/dL. She was having fairly severe left lower quadrant pain greater than right lower quadrant pain and a CT scan done today demonstrates a 5.6 x 3.4 cm thick-walled fluid collection containing air in this adjacent to the sigmoid colon consistent with diverticular perforation. Given the patient' s previous colonoscopy in 2009 there is is less likely to be a colon cancer but it still remains within the differential. I will check the patient's CEA level. CT scan also demonstrates an incidental hiatal hernia, bilateral renal cysts, and umbilical hernia containing fat. It is my understanding that she is due to go to interventional radiology for a percutaneous drain and she remains on antibiotics including cefepime and metronidazole. The patient states that the pain has now migrated from being in the left lower abdomen down to being perirectal. Home Medications Medication Instructions Recorded Confirmed Type Apixaban [Eliquis] 2.5 mg PO BID 09/21/16 11/12/16 History Aspirin EC Tab 81 mg PO BEDTIME 09/21/16 11/12/16 History Calcium (Carb)/Vit D 600-400 2 tablet PO BEDTIME 09/21/16 11/12/16 History [Caltrate 600 + D] Carvedilol [Coreg] 3.125 mg PO BID 09/21/16 11/12/16 History Chlorthalidone 25 mg PO QAM 09/21/16 11/12/16 History Esomeprazole Magnesium 40 mg PO BEDTIME 09/21/16 11/12/16 History [Esomeprazole] Furosemide Tab [Lasix Tab] 40 mg PO QAM 09/21/16 11/12/16 History Gabapentin Cap/Tab [Neurontin 300 mg PO TID 09/21/16 11/12/16 History Cap/Tab] Montelukast Tab [Singulair Tab] 10 mg PO BEDTIME 09/21/16 11/12/16 History Multivitamin [Multivitamins] 1 each PO QPM 09/21/16 11/12/16 History Potassium Chloride Cap/Tab [K Dur] 20 meq PO BID 09/21/16 11/12/16 History Thyroid,Pork [Cha[place] Thyroid] 90 mg PO QAM 09/21/16 11/12/16 History Tramadol HCl [Tramadol Tab] 50 mg PO Q6H PRN 09/21/16 11/12/16 History Allergies Allergy/AdvReac Type Severity Reaction Status Date / Time acetaminophen [From Lortab] Allergy HIVES Verified 09/21/16 11:00 hydrocodone [From Lortab] Allergy HIVES Verified 09/21/16 11:00 Medical,Surgical,& Family Hx - Medical History Cardio: History of: Cardiac Dysrhythmia, CHF, Hypertension, Valvular Heart Disease No history of: CAD, [place], PVD Psychological: No history of: Anxiety Disorders, ADHD, Behavior Problems, Bipolar Disorder, Depression, Previous Suicide Attempt, Psychiatric/Substance Abuse Tx, Schizophrenia, Violent Behavior, Psychiatric Problems Neurology: No history of: Cerebrovascular Accident, Dementia, TIA HEENT: No history of: Ear Problem, Eye Problem, Dental Problems, Glaucoma, Oral Cancer, HEENT Problems Endocrine: History of: Thyroid Disorder No history of: Diabetes Mellitus (IDDM), Diabetes Mellitus (NIDDM), Dyslipidemia Respiratory: No history of: COPD, Obstructive Sleep Apnea, Pulmonary Embolism Renal: No history of: Dialysis, Renal Failure Genitourinary: No history of: Recurring Urinary Tract Infections Gastrointestinal: History of: Diverticulitis/ Diverticulosis, GERD, Gastrointestinal Bleed Musculoskeletal: No history of: Back/Neck Problems Hematology: History of: Anemia (with acute GI bleed) No history of: Blood Transfusion Reaction Reproductive: History of: Reproductive Problems (fibercystic breast disease) Other: No history of: Cancer - Surgical History Abdominal Surgeries: Surgical HX of: Colonoscopy, EGD Reproductive Surgeries: Surgical HX of;: Genitourinary Surgery (bladder sx), Hysterectomy Orthopedic Surgeries: Surgical HX of;: Orthopedic Surgery (right knee, right hip ) - Family History Family History: Reports;: Family Heart Disease - Social History Smoking Status: Never smoker Frequency of Alcohol Use: None Type of Drug Use: None Review of systems: Constitutional: Mild fever, chills, nausea, but no vomiting Eyes: Denies dry eyes, and scleral icterus HENT: Denies headaches Cardiovascular: Denies acute chest pain and claudication Respiratory: Denies shortness of breath, wheezing, and difficulty breathing, denies cough Gastrointestinal: As noted in the HPI Genitourinary: Denies dysuria and hematuria Neurologic: Denies vision loss, and loss of sensation Musculoskeletal: Admits to some joint swelling, joint stiffness, and muscular weakness Psychiatric: Denies depression and laila symptoms Heme-Lymph: Denies easy bruising, lymph node enlargement or tenderness, night sweats, excessive bleeding Allergies-immunologic: Denies pruritus and rhinorrhea Exam - Constitutional Vitals: Period Temp Pulse Resp BP Sys/Conroy Pulse Ox Last 24 Hr 97.6 F-97.9 F 80-87 17-20 137-163/77-102 97-98 General appearance: no acute distress - Head Head exam: Present: normal inspection - Eye Eye exam: Present: EOMI Pupils: Present: YU - ENT ENT exam: Present: normal oropharynx - Neck Neck exam: Present: normal inspection - Respiratory Respiratory exam: Present: clear to auscultation bilaterally - Cardiovascular Cardiovascular exam: Present: regular rate and rhythm - GI/Abdominal GI/Abdominal exam: Present: normal bowel sounds, soft. Absent: ascites, distended, guarding, tenderness, rebound - Extremities Exam Extremities exam: Absent: edema - Neurological Exam Neurological exam: Present: alert, oriented X3 - Psychiatric Psychiatric exam: Present: normal affect, normal mood - Skin Skin exam: Present: warm Results - Labs CBC & BMP: 11/12/16 10:00 11/12/16 10:00 Quality Measures - VTE Contraindication to Pharmacological VTE Prophylaxis: Clinical assessment deems Pt at low risk, no prophalaxis needed
--- NOTE | 2016-11-12 17:59 | XRay Report ---
Exam: XR wrist 2V LT Date: 11/12/2016 2:15 PM Indication: Follow-up fracture Comparison: None Technical: AP lateral Findings: Fracture of the distal radius present with the positive ulnar variance. Arthritic changes are present at the first carpometacarpal junction and the adjacent scaphoid and trapezium trapezoid reveal sclerosis. The exam reveals heterotopic calcification along the dorsal and Bohler and medial lateral aspect of the distal radius with Fiberglas cast present. Impression: 1. Casted wrist with Degenerative arthritic changes of the wrist with fracture of the distal radius with mild callus formation and minimal dorsal angulation at the fracture site with positive ulnar variance. PROCEDURE INTERPRETED AT [facility] DEPARTMENT OF RADIOLOGY Final Report Signed by: Dr. Alfredo Brower
[2016-11-12] MEDS ORDERED: POTASSIUM CHLORIDE RIDER 10 MEQ in PREMIX 1 EACH IV SCH (18:00)
[2016-11-12] MEDS: metroNIDAZOLE INJ 500 MG in PREMIX 1 EACH IV SCH ×2 (18:16→23:16)
[2016-11-13] MEDS: CEFEPIME 2,000 MG in SODIUM CHLORIDE 0.9% 100 ML IV SCH ×3 (00:11→17:13)
[2016-11-13 05:21] LABS: Basophils # 0.1 10*3/uL (0.0-0.2); Basophils % 0.5 % (0.0-0.8); Eosinophils # 0.1 10*3/uL (0.0-0.87); Eosinophils % 0.9 % (0.00-10.9); Hematocrit 39.7 VOL% (35.7-47.0); Hemoglobin 13.2 GM/DL (12.0-16.0); Immature Granulocytes % 0.5 %; Immature Granulocytes Absolute 0.06 #; Lymphocytes # 1.7 10*3/uL (1.4-4.0); Lymphocytes % 14.4 % (21.3-54.2); Mean Corpuscular HGB Conc 33.2 GM/DL (32-36); Mean Corpuscular Hemoglobin 30 PG (27-34); Mean Platelet Volume 9.6 FL (9.6-12.0); Monocytes # 1.6 10*3/uL (0.11-0.8); Monocytes % 12.9 % (1.7-12.7); Neutrophils # 8.5 10*3/uL (1.4-7.4); Neutrophils % 70.8 % (38.7-73.9); Platelet Count 198 T/CUMM (130-400); Red Blood Count 4.41 MC/CUMM (3.8-5.5); Red Cell Distribution Width 13.2 % (9.3-17.3)
[2016-11-13] MEDS: metroNIDAZOLE INJ 500 MG in PREMIX 1 EACH IV SCH ×3 (05:38→17:31)
[2016-11-13] MEDS: SODIUM CHLORIDE 0.9% 1,000 ML IV SCH ×2 (05:39→16:10)
[2016-11-13 05:52] LABS: Albumin 2.8 G/DL (3.4-5.0); Bilirubin,Total 1.3 MG/DL (0.2-1.0); Calcium 8.1 MG/DL (8.5-10.1); Magnesium 1.7 MG/DL (1.8-2.4); Potassium 3.2 MMOL/L (3.5-5.1); Total Protein 7.2 G/DL (6.4-8.3)
[2016-11-13] MEDS ORDERED: MAGNESIUM SULF RIDER 2 GM in PREMIX 1 EACH IV PRN (07:02)
[2016-11-13] MEDS ORDERED: MAGNESIUM SULF RIDER 4 GM in PREMIX 1 EACH IV PRN (07:02)
--- NOTE | 2016-11-13 07:45 | EKG Report ---
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
[2016-11-13 08:15] LABS: INR 1.1; PT Patient Result 11.9 SECS
--- NOTE | 2016-11-13 08:29 | Orthopedic Consult Note ---
History of Present Illness Chief complaint: Left wrist fracture History of present illness: Ms. Alatorre is a 89 year old female known to me she is approximately 2 weeks into treatment for displaced Colles' fracture wearing a short arm cast she had a follow-up appointment yesterday which she missed due to her inpatient admission for abscess in the pelvis. X-rays some settling and shortening with satisfactory alignment and interval healing of her displaced Colles' fracture left wrist I discussed with her transitioning to another cast that was our initial plan I will have my office staff remove and reapply a short arm cast and plan on following her up in about 2 weeks Home Medications Medication Instructions Recorded Confirmed Type Apixaban [Eliquis] 2.5 mg PO BID 09/21/16 11/12/16 History Aspirin EC Tab 81 mg PO BEDTIME 09/21/16 11/12/16 History Calcium (Carb)/Vit D 600-400 2 tablet PO BEDTIME 09/21/16 11/12/16 History [Caltrate 600 + D] Carvedilol [Coreg] 3.125 mg PO BID 09/21/16 11/12/16 History Chlorthalidone 25 mg PO QAM 09/21/16 11/12/16 History Esomeprazole Magnesium 40 mg PO BEDTIME 09/21/16 11/12/16 History [Esomeprazole] Furosemide Tab [Lasix Tab] 40 mg PO QAM 09/21/16 11/12/16 History Gabapentin Cap/Tab [Neurontin 300 mg PO TID 09/21/16 11/12/16 History Cap/Tab] Montelukast Tab [Singulair Tab] 10 mg PO BEDTIME 09/21/16 11/12/16 History Multivitamin [Multivitamins] 1 each PO QPM 09/21/16 11/12/16 History Potassium Chloride Cap/Tab [K Dur] 20 meq PO BID 09/21/16 11/12/16 History Thyroid,Pork [[place] Thyroid] 90 mg PO QAM 09/21/16 11/12/16 History Tramadol HCl [Tramadol Tab] 50 mg PO Q6H PRN 09/21/16 11/12/16 History Ciprofloxacin HCl [Ciprofloxacin 1 drop LEFT EYE BID 11/12/16 11/12/16 History 0.3% Oph Soln] Ketorolac Tromethamine [Ketorolac 1 drop LEFT EYE BID 11/12/16 11/12/16 History 0.5% Oph Soln] prednisoLONE acetate [Prednisolone 1 drop LEFT EYE BID 11/12/16 11/12/16 History Acetate] Allergies Allergy/AdvReac Type Severity Reaction Status Date / Time acetaminophen [From Lortab] Allergy HIVES Verified 09/21/16 11:00 hydrocodone [From Lortab] Allergy HIVES Verified 09/21/16 11:00 Medical,Surgical,& Family Hx - Medical History Cardio: History of: Cardiac Dysrhythmia, CHF, Hypertension, Valvular Heart Disease No history of: CAD, NM, PVD Psychological: No history of: Anxiety Disorders, ADHD, Behavior Problems, Bipolar Disorder, Depression, Previous Suicide Attempt, Psychiatric/Substance Abuse Tx, Schizophrenia, Violent Behavior, Psychiatric Problems Neurology: No history of: Cerebrovascular Accident, Dementia, TIA HEENT: No history of: Ear Problem, Eye Problem, Dental Problems, Glaucoma, Oral Cancer, HEENT Problems Endocrine: History of: Thyroid Disorder No history of: Diabetes Mellitus (IDDM), Diabetes Mellitus (NIDDM), Dyslipidemia Respiratory: No history of: COPD, Obstructive Sleep Apnea, Pulmonary Embolism Renal: No history of: Dialysis, Renal Failure Genitourinary: No history of: Recurring Urinary Tract Infections Gastrointestinal: History of: Diverticulitis/ Diverticulosis, GERD, Gastrointestinal Bleed Musculoskeletal: No history of: Back/Neck Problems Hematology: History of: Anemia (with acute GI bleed) No history of: Blood Transfusion Reaction Reproductive: History of: Reproductive Problems (fibercystic breast disease) Other: No history of: Cancer - Surgical History Abdominal Surgeries: Surgical HX of: Colonoscopy, EGD Reproductive Surgeries: Surgical HX of;: Genitourinary Surgery (bladder sx), Hysterectomy Orthopedic Surgeries: Surgical HX of;: Orthopedic Surgery (right knee, right hip ) - Family History Family History: Reports;: Family Heart Disease - Social History Smoking Status: Never smoker Frequency of Alcohol Use: None Type of Drug Use: None Exam - Constitutional Vitals: Period Temp Pulse Resp BP Sys/Conroy Pulse Ox Last 24 Hr 97.2 F-98.6 F 68-88 16-20 115-163/66-102 97-99 Results - Labs CBC & BMP: 11/13/16 05:04 11/13/16 05:04
[2016-11-13] MEDS: PANTOPRAZOLE 40 MG VIAL IV SCH (08:35)
[2016-11-13] MEDS ORDERED: MIDAZOLAM 2 MG/2 ML VIAL IV ONE (08:36)
[2016-11-13] MEDS ORDERED: fentaNYL 100 MCG/2 ML VIAL IV ONE (08:36)
[2016-11-13] MEDS ORDERED: DIAZEPAM 5 MG TABLET PO ONE (08:36)
--- NOTE | 2016-11-13 08:39 | IR History and Physical Update ---
IR Pre-Procedure - History and Physical H&P was reviewed, the patient examined and there: are no changes in the patients condition since last H&P was completed. Reason for procedure:: 89-year-old female with pelvic diverticular abscess, 2 x 4 cm in size. Requires percutaneous drainage. - Dictation Physical: refer to H&P completed by admitting physician - Physical Exam Vital Signs: Last Vital Signs Temp 97.2 F L 11/13/16 04:00 Pulse 88 11/13/16 04:00 Resp 18 11/13/16 04:00 BP 115/73 11/13/16 04:00 Pulse Ox 97 11/13/16 04:00 Mental Status: alert and oriented - Sedation IR anesthesia plan for sedation: minimal ASA Class: III - Risks Risks: Procedures explained. Risks discussed include, but not limited to, the following:[Pain, bleeding, infection, injury to adjacent organs including vessels, bladder and bowel] All questions answered. The following alternatives were discussed:[Antibiotics, surgery] Risks and benefits discussed with: patient Consent obtained from: patient Assessment and Plan - Time spent with patient Time spent with patient: Less than 30 minutes (1) Abscess Status: Acute Assessment and plan: Assessment: Pelvic abscess from diverticular disease. Plan: Percutaneous drain placement with CT guidance. Current Visit: Yes
--- NOTE | 2016-11-13 08:59 | Gastrointestinal Progress Note ---
Assessment and Plan (1) Diverticulitis of large intestine with abscess without bleeding Status: Acute Assessment and plan: The patient is having diverticulitis of her sigmoid colon with abscess formation , this will likely require percutaneous drain if not surgery. She is being treated with metronidazole and cefepime and will continue to monitor her white blood cell count to see if this improves spontaneously. She may need repeat colonoscopy to rule out colon cancer but this is unlikely given the fact that she had previous colonoscopy done by Dr. Mcallister back in November 2009. This will need to be down the road at least a month or 2. She does have prior history of polyps and so recheck may be helpful at this point. Given the patient's age I had not planned on looking again but given this recent development will make arrangements to recheck as an outpatient. 11/13/16--white blood cell count has gone from 15.5 down to 12.0 with antibiotic therapy for her underlying diverticulitis/sigmoid abscess. She is due to get a percutaneous drain today. I suspect this will need to be in for approximately 2 weeks to 4 weeks. No other recommendations at this time aside from continuing antibiotics. Current Visit: Yes (2) Gastritis Status: Acute Assessment and plan: Patient is being controlled for this condition on Nexium. She finds her self on Eliquis now but is doing adequately concerning the previous anemia that she had had back during her prior bleed. We will continue to watch her and see if she develops symptoms again and observe for melena. 11/13/16--continue to observe her further melena and anemia Current Visit: Yes (3) GERD (gastroesophageal reflux disease) Status: Inactive Assessment and plan: No symptoms of reflux at this time. Current Visit: Yes (4) Personal history of colonic polyps Status: Acute Assessment and plan: The patient has a prior history of polyps back before her last colonoscopy in November 2009. We will recheck her for further polyps when we do her next colonoscopy in December/January 2017 after she is improved from the current illness. 11/13/16--we will recheck the patient's colon in approximately 4 to 8 weeks. Current Visit: Yes Gastroenterology - PN: Subj Interval history: The patient has perirectal pain up to 9 out of 10 intensity with quality from time to time. The left lower quadrant pain is improved. She is awaiting placement of a percutaneous drain at this time. Exam (Progress Note) - Constitutional Vitals: Period Temp Pulse Resp BP Sys/Conroy Pulse Ox Last 24 Hr 97.2 F-98.6 F 68-88 16-20 115-163/66-102 97-99 General appearance: no acute distress - Head Head exam: Present: normocephalic - Eye Eye exam: Present: EOMI - Respiratory Respiratory exam: Present: clear to auscultation bilaterally - Cardiovascular Cardiovascular exam: Present: regular rate and rhythm - GI/Abdominal GI/Abdominal exam: Present: normal bowel sounds, psoas sign, tenderness (Very mild left lower quadrant tenderness), soft. Absent: distended, rebound - Extremities Exam Extremities exam: Absent: edema - Neurological Exam Neurological exam: Present: alert, oriented X3 - Psychiatric Psychiatric exam: Present: normal affect, normal mood - Skin Skin exam: Present: warm Results - Labs CBC & BMP: 11/13/16 05:04 11/13/16 05:04
--- NOTE | 2016-11-13 09:15 | Hospitalist Progress Note ---
<Yoli Kingda - Last Filed: 11/13/16 09:13> Assessment and Plan (1) Atrial fibrillation Status: Chronic Assessment and plan: The patient currently takes Eliquis for the management of her atrial fibrillation. We will Place Eliquis on hold for now due to the presence of an active bleed. We will consult cardiology to evaluate and assist during the clinical encounter. 11/13-rate is controlled. Eliquis remains on hold per cardiology recommendation. Current Visit: Yes Qualifiers: Atrial fibrillation type: persistent Qualified Code(s): I48.1 - Persistent atrial fibrillation (2) Hypokalemia Status: Acute Assessment and plan: Potassium noted 3.2. We will correct and recheck in a.m. 11/13-potassium remains low at 3.2. We will correct the recheck in a.m. Current Visit: Yes (3) Abscess Status: Acute Assessment and plan: The patient was seen and evaluated by surgery. The plan is to possibly perform a percutaneous drainage home tomorrow. We will stop Eliquis for now. We will start empiric antibiotics, cefepime and Flagyl. 11/12-continue empiric antibiotic coverage; agree with surgical plan for interventional radiology percutaneous drainage this a.m. Current Visit: Yes (4) Diverticulitis Status: Acute Assessment and plan: We will start empiric antibiotics and gently rehydrate. We will consult GI to evaluate and assist in the clinical encounter. 11/13-we will continue PPIs and empiric antibiotic coverage per GI recommendation. We appreciate the input. Agree with the plan for a colonoscopy in 4-8 weeks in the outpatient setting. Current Visit: Yes Hospitalist: Subjective Interval history: Patient seen and examined; no significant overnight events reported. Chart reviewed; awaiting interventional radiology for percutaneous drain placement this a.m. Exam - Constitutional Vitals: Period Temp Pulse Resp BP Sys/Conroy Pulse Ox Last 24 Hr 97.2 F-98.6 F 68-88 16-20 115-163/66-102 97-99 General appearance: normal weight, no acute distress - Head Head exam: Present: normal inspection, normocephalic, atraumatic - Eye Eye exam: Present: EOMI. Absent: conjunctival injection Pupils: Present: YU, normal accommodation - ENT ENT exam: Present: normal exam, normal external ear exam, normal oropharynx - Neck Neck exam: Present: normal inspection. Absent: lymphadenopathy, meningismus, thyromegaly - Respiratory Respiratory exam: Present: clear to auscultation bilaterally. Absent: rales, rhonchi, stridor, wheezes - Cardiovascular Cardiovascular exam: Present: regular rate and rhythm. Absent: carotid bruit, diastolic murmur, gallop, JVD, rubs, systolic murmur - GI/Abdominal GI/Abdominal exam: Present: normal bowel sounds, soft - Extremities Exam Extremities exam: Present: normal capillary refill, other (Cast to the left forearm). Absent: edema - Back Exam Back exam: Present: normal inspection - Neurological Exam Neurological exam: Present: alert, oriented X3, CN II-XII intact - Psychiatric Psychiatric exam: Present: normal affect, normal mood - Skin Skin exam: Present: normal color, warm, dry Results - Labs CBC & BMP: 11/13/16 05:04 11/13/16 05:04 Lab Results: I have reviewed the past 24 hour labs Quality Measures - VTE Contraindication to Pharmacological VTE Prophylaxis: Clinical assessment deems Pt at low risk, no prophalaxis needed <Afua Burnett - Last Filed: 11/13/16 15:25> Hospitalist: Subjective Interval history: She had a CT guided 10-Fr drain placement left pelvic abscess done today. Exam - Constitutional Vitals: Period Temp Pulse Resp BP Sys/Conroy Pulse Ox Last 24 Hr 97.2 F-98.6 F 68-95 14-18 115-155/63-84 95-99 Results - Labs CBC & BMP: 11/13/16 05:04 11/13/16 05:04
[2016-11-13] MEDS ORDERED: fentaNYL 100 MCG/2 ML VIAL ONE (11:08)
[2016-11-13] MEDS ORDERED: MIDAZOLAM 2 MG/2 ML VIAL ONE (11:08)
--- NOTE | 2016-11-13 11:13 | General Surgery Progress Note ---
Assessment and Plan (1) Diverticulitis of large intestine with abscess without bleeding Status: Acute Assessment and plan: Patient clinically improving with conservative management. Patient exiting the room to go to interventional radiology for percutaneous drainage at the time of my visit. Continue with IV antibiotics, IV hydration, and bowel rest. Repeat labs in a.m. Current Visit: Yes (2) Hyponatremia Status: Acute Assessment and plan: Resolved Current Visit: Yes (3) Hypokalemia Status: Acute Assessment and plan: Repletion in progress Current Visit: Yes (4) Atrial fibrillation Status: Chronic Assessment and plan: Eliquis on hold Current Visit: Yes Qualifiers: Atrial fibrillation type: persistent Qualified Code(s): I48.1 - Persistent atrial fibrillation (5) Prophylactic measure Status: Acute Assessment and plan: GI prophylaxis with PPI daily DVT prophylaxis with mechanical measures and mobility. Hold chemoprophylaxis for procedure today and until surgical decision clear. Current Visit: Yes Subjective Patient reports: Present: no new complaints (Patient overall improved. Female family member in the room expressing concern about patient's nutritional status and appetite at home.), pain is less, no bowel movement, afebrile. Absent: nausea, vomiting Exam - Constitutional Vitals: Period Temp Pulse Resp BP Sys/Conroy Pulse Ox Last 24 Hr 97.2 F-98.6 F 68-95 16-20 115-163/66-102 97-99 General appearance: no acute distress - Head Head exam: Present: normal inspection, normocephalic - Eye Eye exam: Absent: conjunctival injection, periorbital swelling, scleral icterus - Neck Neck exam: Present: trachea midline - Respiratory Respiratory exam: Present: clear to auscultation bilaterally - Cardiovascular Cardiovascular exam: Present: RRR - GI/Abdominal GI/Abdominal exam: Present: soft, other (Tenderness noted in the left lower quadrant and suprapubic region; no peritoneal signs) - Extremities Exam Extremities exam: Absent: calf tenderness, edema - Neurological Exam Neurological exam: Present: alert, oriented X3 Speech: Present: normal - Skin Skin exam: Present: normal color, warm Results - Labs CBC & BMP: 11/13/16 05:04 11/13/16 05:04 Quality Measures - VTE Contraindication to Pharmacological VTE Prophylaxis: Clinical assessment deems Pt at low risk, no prophalaxis needed
--- NOTE | 2016-11-13 11:38 | Post Interventional Procedure ---
Pre-op diagnosis: Diverticular pelvic abscess Post-op diagnosis: same Procedure: CT guided 10-Fr drain placement left pelvic abscess Radiologist: Jairo Ledezma Anesthesia: local Specimens: other (1 cc pus for Cx and GS) Estimated blood loss: none Complications: none Condition: stable Assessment and Plan - Time spent with patient Time spent with patient: Less than 30 minutes (1) Abscess Status: Acute Assessment and plan: Assessment: Pelvic abscess from diverticular disease. Plan: Percutaneous drain placement with CT guidance. Current Visit: Yes
[2016-11-13] MEDS: POTASSIUM CHLORIDE RIDER 10 MEQ in PREMIX 1 EACH IV PRN ×4 (12:22→22:13)
--- NOTE | 2016-11-13 13:25 | CT Report ---
CT abscess drainage retroperit Indication: Pelvic abscess, diverticular. CT-GUIDED DRAIN PLACEMENT PELVIC ABSCESS Description: A formal timeout was performed. Patient was placed in a right lateral decubitus position on the CT table. Slip Cover Estimator imaging through the pelvis is obtained identifying the perirectal abscess. After sterile prep and drape of the left buttock region, an AccuStick needle was advanced directly into the abscess pocket under CT fluoroscopic guidance. The needle was then exchanged over a wire for a 10 [place] pigtail drain catheter. Pigtail was formed in the abscess pocket. 1 cc pus was aspirated for culture and Gram stain. The abscess pocket was flushed with 10 cc saline and the drainage catheter placed on a suction bag device. Patient tolerated the procedure well. Impression: Uncomplicated placement of left pelvic abscess drain. PROCEDURE INTERPRETED AT [facility] [place] DEPARTMENT OF RADIOLOGY Final Report Signed by: Jairo Ledezma M.D.
--- NOTE | 2016-11-13 14:35 | Cardiology Progress Note ---
I, Sidra Raya RN, am scribing for, and in the presence of, Jairo Roy MD 14:32. Assessment and Plan - Time spent with patient Time spent with patient: Greater than 30 minutes (1) Atrial fibrillation Status: Chronic Assessment and plan: Ventricular response has been well controlled with low-dose beta-nicholas. Chronically anticoagulated with Eliquis for stroke prevention. We will need to resume this once cleared from a surgical standpoint. Current Visit: Yes Qualifiers: Atrial fibrillation type: persistent Qualified Code(s): I48.1 - Persistent atrial fibrillation (2) Chronic anticoagulation Status: Acute Assessment and plan: Eliquis for stroke prevention. Resume when possible. Current Visit: Yes (3) Diverticulitis Status: Acute Assessment and plan: This is being managed per surgical services. Patient now has drainage catheter and on antibiotics. Current Visit: Yes (4) Hypokalemia Status: Acute Assessment and plan: Potassium is 3.2. Will replete. Current Visit: Yes (5) Hx of heart failure Status: Chronic Assessment and plan: This was due to diastolic dysfunction in 2013 during new onset atrial fibrillation. Clinically, she remains well compensated since that time. Normal systolic function and LV ejection fraction is 55%.. Current Visit: Yes (6) Hypertension Status: Chronic Assessment and plan: Will need to watch, up a little today. Current Visit: Yes (7) Hypothyroidism Status: Chronic Assessment and plan: Chronic. Current Visit: Yes (8) GERD (gastroesophageal reflux disease) Status: Inactive Assessment and plan: PPI continued. Current Visit: Yes Cardiology - PN: Subj Interval history: Patient is stable today. She is post percutaneous placement of catheter into her pelvic abscess. This is being drained. She will course need to be off her anticoagulation for the time being until it is decided what other plans are going to be carried out. She certainly is chronic atrial fibrillation and will need anticoagulation long-term. I think we will be stable enough for a short time with minimal increased stroke risk off anticoagulation. Certainly her anticoagulant should be contraindicated if she needs surgery. Exam (Progress Note) - Constitutional Vitals: Period Temp Pulse Resp BP Sys/Conroy Pulse Ox Last 24 Hr 97.2 F-98.6 F 68-95 14-20 115-155/63-89 95-99 Exam: General: Present: No Apparent Distress, Other HEENT: Present: PERRL, Normocephaly (Elderly). Absent: Pallor Neck: Present: Supple Neck, Midline Trachea, No JVD/HJR, No Masses, No Bruit Cardiac: Present: Irregularly Regular. Absent: Tachycardia, Bradycardia Lungs: Present: Clear Ascult./Percussion, No Wheeze, Rales, Rhonchi. Absent: Oxygen Neuro: Present: Grossly Intact. Absent: Numbness, Tingling, Weakness, Resting Tremor, Essential Tremor Abdomen: Present: Soft, Active Bowel Sounds, No Masses, No Pulsations/Bruits. Has drainage catheter in place. Absent: Ascites, Tender, Firm, Distended Skin: Present: Clear. Absent: Rash, Suspicious Lesions Musculoskeletal: Present: No Fluid Collection Extremities: Present: No Clubbing, No Cyanosis, Normal Upper Extr. Pulses (3+ bilateral), Normal Lower Extr. Pulses (3+ bilaterally), Edema (minimal trace to left lower extremity), Capillary Refill (normal) Result/EKG - Labs CBC & BMP: 11/13/16 05:04 11/13/16 05:04 Lab Results: I have reviewed the past 24 hour labs Labs: Laboratory Results - last 24 hr 11/12/16 11/13/16 11/13/16 10:00 05:04 05:04 WBC 12.0 RBC 4.41 Hgb 13.2 Hct 39.7 MCV 90.0 MCH 30 MCHC 33.2 RDW 13.2 Plt Count 198 MPV 9.6 Neut % (Auto) 70.8 Lymph % (Auto) 14.4 L [place] % (Auto) 12.9 H Eos % (Auto) 0.9 Baso % (Auto) 0.5 Neut # (Auto) 8.5 H Lymph # (Auto) 1.7 [place] # (Auto) 1.6 H Eos # (Auto) 0.1 Baso # (Auto) 0.1 Immature Gran % 0.5 Nucleated RBC % 0.0 Immature Gran # 0.06 Nucleated RBCs # 0.00 INR PT Patient/Control Mix Sodium 136 Potassium 3.2 L Chloride 97 L Carbon Dioxide 28 Anion Gap 14.2 BUN 19 H Creatinine 1.00 GFR Calculation 49 BUN/Creatinine Ratio 19.00 Glucose 115 H Calculated Osmolality 274.0 Calcium 8.1 L Magnesium 1.7 L Total Bilirubin 1.30 H AST 15 ALT 16 Alkaline Phosphatase 74 Total Protein 7.2 Albumin 2.8 L Globulin 4.4 H Albumin/Globulin Ratio 0.6 L Triglycerides 82 Cholesterol 121 LDL Cholesterol 54.0 VLDL Cholesterol 16.4 HDL Cholesterol 64 H Heart Disease Risk Ratio 1.89 TSH 3rd Generation 0.884 11/13/16 07:50 WBC RBC Hgb Hct MCV MCH MCHC RDW Plt Count MPV Neut % (Auto) Lymph % (Auto) [place] % (Auto) Eos % (Auto) Baso % (Auto) Neut # (Auto) Lymph # (Auto) [place] # (Auto) Eos # (Auto) Baso # (Auto) Immature Gran % Nucleated RBC % Immature Gran # Nucleated RBCs # INR 1.1 PT Patient/Control Mix 11.9 Sodium Potassium Chloride Carbon Dioxide Anion Gap BUN Creatinine GFR Calculation BUN/Creatinine Ratio Glucose Calculated Osmolality Calcium Magnesium Total Bilirubin AST ALT Alkaline Phosphatase Total Protein Albumin Globulin Albumin/Globulin Ratio Triglycerides Cholesterol LDL Cholesterol VLDL Cholesterol HDL Cholesterol Heart Disease Risk Ratio TSH 3rd Generation - EKG EKG results: interpreted by me, no acute changes EKG shows: atrial fibrillation Quality Measures - VTE Contraindication to Pharmacological VTE Prophylaxis: Clinical assessment deems Pt at low risk, no prophalaxis needed Kirill Cameron John Timothy, MD, personally performed the services described in this documentation, ascribed by Sidra Raya RN in my presence, and it is both accurate and complete [id number] .
[2016-11-13] MEDS: MORPHINE 2 MG/1 ML SYRINGE IV PRN ×2 (14:49→20:36)
[2016-11-14] MEDS: metroNIDAZOLE INJ 500 MG in PREMIX 1 EACH IV SCH ×5 (00:40→23:43)
[2016-11-14] MEDS: CEFEPIME 2,000 MG in SODIUM CHLORIDE 0.9% 100 ML IV SCH ×3 (00:41→16:37)
[2016-11-14 02:58] LABS: Albumin 2.7 G/DL (3.4-5.0); Bilirubin,Total 0.7 MG/DL (0.2-1.0); Calcium 7.8 MG/DL (8.5-10.1); Magnesium 2.1 MG/DL (1.8-2.4); Osmolality,Calculated 275.7 MOS/KG (273-304); Phosphorous 1.6 MG/DL (2.5-4.9); Potassium 3.1 MMOL/L (3.5-5.1); Total Protein 6.4 G/DL (6.4-8.3)
[2016-11-14 02:59] LABS: Basophils # 0.1 10*3/uL (0.0-0.2); Basophils % 0.5 % (0.0-0.8); Eosinophils # 0.2 10*3/uL (0.0-0.87); Eosinophils % 1.8 % (0.00-10.9); Hematocrit 35.5 VOL% (35.7-47.0); Immature Granulocytes % 0.4 %; Immature Granulocytes Absolute 0.04 #; Lymphocytes # 1.7 10*3/uL (1.4-4.0); Lymphocytes % 16.4 % (21.3-54.2); Mean Corpuscular HGB Conc 33.8 GM/DL (32-36); Mean Corpuscular Hemoglobin 31 PG (27-34); Mean Platelet Volume 9.8 FL (9.6-12.0); Monocytes # 1.6 10*3/uL (0.11-0.8); Monocytes % 15.5 % (1.7-12.7); Neutrophils # 6.7 10*3/uL (1.4-7.4); Neutrophils % 65.4 % (38.7-73.9); Platelet Count 185 T/CUMM (130-400); Red Cell Distribution Width 13.4 % (9.3-17.3); White Blood Count 10.3 T/CUMM (4-12)
[2016-11-14] MEDS: SODIUM CHLORIDE 0.9% 1,000 ML IV SCH ×3 (03:16→20:46)
[2016-11-14] MEDS: MORPHINE 2 MG/1 ML SYRINGE IV PRN ×3 (03:45→13:59)
[2016-11-14] MEDS: POTASSIUM CHLORIDE RIDER 10 MEQ in PREMIX 1 EACH IV PRN ×2 (03:55→06:12)
[2016-11-14] MEDS: PANTOPRAZOLE 40 MG VIAL IV SCH (08:39)
--- NOTE | 2016-11-14 11:23 | General Surgery Progress Note ---
Assessment and Plan (1) Diverticulitis of large intestine with abscess without bleeding Status: Acute Assessment and plan: 11/14/2016: Patient with percutaneous drain placed on 11/13/2016. Clinical improvement in her symptoms; leukocytosis has resolved. Moderate percutaneous drain output with approximately 80 cc 24 hours; gram-negative rods from abdominal abscess culture. Recommend continuing current IV antibiotics 9 cefepime and Flagyl) with clears diet; consider advancing diet tomorrow with continued clinical improvement. Patient is aware surgical intervention may be required if this conservative measure fails. Current Visit: Yes (2) Atrial fibrillation Status: Chronic Assessment and plan: Eliquis on hold. Current Visit: Yes Qualifiers: Atrial fibrillation type: persistent Qualified Code(s): I48.1 - Persistent atrial fibrillation Subjective Patient reports: Present: other (Patient was independently seen and examined by Dr. Kam. Patient reports overall her abdominal pain has resolved. She has mild intermittent rectal rectal pain persists. She denies bowel movement although she has passed flatus. Tolerating clear liquids without difficulty.) Exam - Constitutional Vitals: Period Temp Pulse Resp BP Sys/Conroy Pulse Ox Last 24 Hr 96.8 F-99.8 F 73-88 14-20 124-155/69-98 93-99 General appearance: no acute distress - Head Head exam: Present: normal inspection, normocephalic - Neck Neck exam: Present: trachea midline - Respiratory Respiratory exam: Present: clear to auscultation bilaterally - Cardiovascular Cardiovascular exam: Present: irregular rhythm - GI/Abdominal GI/Abdominal exam: Present: normal bowel sounds, soft, other (Percutaneous drain noted with bloody purulent material. Percutaneous drain output 40 cc post procedure yesterday; 40 cc since midnight.). Absent: distended, tenderness - Extremities Exam Extremities exam: Absent: calf tenderness, edema - Neurological Exam Neurological exam: Present: alert, oriented X3 Speech: Present: normal - Skin Skin exam: Present: normal color, warm Results - Labs CBC & BMP: 11/14/16 02:13 11/14/16 02:13 Labs: Blood cultures no growth at 1 day Abdominal abscess culture gram-negative rods Quality Measures - VTE Contraindication to Pharmacological VTE Prophylaxis: Clinical assessment deems Pt at low risk, no prophalaxis needed
--- NOTE | 2016-11-14 12:04 | Cardiology Progress Note ---
Elver Cameron Vanessa, RN, am scribing for, and in the presence of, Jairo Roy MD 12:02. Assessment and Plan - Time spent with patient Time spent with patient: Greater than 30 minutes (1) Atrial fibrillation Status: Chronic Assessment and plan: This is chronic and ventricular response has been well controlled with low-dose beta-nicholas. Chronically anticoagulated with Eliquis for stroke prevention. This will need to be resumed once okay from surgical standpoint. Current Visit: Yes Qualifiers: Atrial fibrillation type: persistent Qualified Code(s): I48.1 - Persistent atrial fibrillation (2) Chronic anticoagulation Status: Acute Assessment and plan: Eliquis for stroke prevention of chronic atrial fibrillation. This will need to be resumed when possible. Current Visit: Yes (3) Diverticulitis Status: Acute Assessment and plan: This is being managed per surgical services. P patient is now status post percutaneous drain placement, and abscess is draining. Antibiotics are in place per Current Visit: Yes (4) Hypokalemia Status: Acute Assessment and plan: Potassium is 3.1. Patient is on a replacement protocol. Current Visit: Yes (5) Hx of heart failure Status: Chronic Assessment and plan: This was due to diastolic dysfunction in 2013 during new onset atrial fibrillation. Clinically, she remains well compensated since that time. Normal systolic function and LV ejection fraction is 55%. Current Visit: Yes (6) Hypertension Status: Chronic Assessment and plan: This man's overall fairly well controlled. Current Visit: Yes (7) Hypothyroidism Status: Chronic Assessment and plan: Chronic. Current Visit: Yes (8) GERD (gastroesophageal reflux disease) Status: Inactive Assessment and plan: PPI continued. Current Visit: Yes Cardiology - PN: Subj Interval history: PRIMARY AVIATION ORDNANCE OFFICER: DR. HARRISON Patient has been stable and doing relatively well overnight following left- sided percutaneous drain placement with drainage of pelvic abscess yesterday. Patient denies discomfort at this time. She has not had any chest pain or shortness of breath. Afebrile, and vitals have been stable with systolic BP no greater than 145. Anticoagulant remains on hold at this time pending further treatment for abscess. Labs reviewed. CBC overall unremarkable. Hypokalemia K + 3.1 and is on replacement therapy. Hypomagnesemia is improved and today magnesium 2.1. Normal renal function and creatinine 0.9. During the patient is done well stable from a cardiac standpoint. We just await when we can restart the patient's anticoagulation with her Eliquis. Exam (Progress Note) - Constitutional Vitals: Period Temp Pulse Resp BP Sys/Conroy Pulse Ox Last 24 Hr 96.8 F-99.8 F 72-88 14-20 124-155/63-98 93-99 Exam: General: Present: No Apparent Distress, Other HEENT: Present: PERRL, Normocephaly (Elderly). Absent: Pallor Neck: Present: Supple Neck, Midline Trachea, No JVD/HJR, No Masses, No Bruit Cardiac: Present: Irregularly Regular. Absent: Tachycardia, Bradycardia Lungs: Present: Clear Ascult./Percussion, No Wheeze, Rales, Rhonchi. Absent: Oxygen Neuro: Present: Grossly Intact. Absent: Numbness, Tingling, Weakness, Resting Tremor, Essential Tremor Abdomen: Present: Soft, Active Bowel Sounds, No Masses, No Pulsations/Bruits. Absent: Ascites, Tender, Firm, Distended. Other: Percutaneous drain left pelvic area. Skin: Present: Clear. Absent: Rash, Suspicious Lesions Musculoskeletal: Present: No Fluid Collection Extremities: Present: No Clubbing, No Cyanosis, Normal Upper Extr. Pulses (3+ bilateral), Normal Lower Extr. Pulses (3+ bilaterally), Edema (minimal trace to left lower extremity), Capillary Refill (normal) Result/EKG - Labs CBC & BMP: 11/14/16 02:13 11/14/16 02:13 Lab Results: I have reviewed the past 24 hour labs Labs: Laboratory Results - last 24 hr 11/14/16 11/14/16 11/14/16 02:13 02:13 02:13 WBC 10.3 RBC 3.90 Hgb 12.0 Hct 35.5 L MCV 91.0 MCH 31 MCHC 33.8 RDW 13.4 Plt Count 185 MPV 9.8 Neut % (Auto) 65.4 Lymph % (Auto) 16.4 L Scott % (Auto) 15.5 H Eos % (Auto) 1.8 Baso % (Auto) 0.5 Neut # (Auto) 6.7 Lymph # (Auto) 1.7 Scott # (Auto) 1.6 H Eos # (Auto) 0.2 Baso # (Auto) 0.1 Immature Gran % 0.4 Nucleated RBC % 0.0 Immature Gran # 0.04 Nucleated RBCs # 0.00 Sodium 138 Potassium 3.1 L 3.1 L Chloride 101 Carbon Dioxide 30 Anion Gap 10.1 BUN 15 Creatinine 0.90 GFR Calculation 56 BUN/Creatinine Ratio 16.00 Glucose 106 Calculated Osmolality 275.7 Calcium 7.8 L Phosphorus 1.6 L Magnesium 2.1 Total Bilirubin 0.70 AST 16 ALT 13 Alkaline Phosphatase 65 Total Protein 6.4 Albumin 2.7 L Globulin 3.7 H Albumin/Globulin Ratio 0.7 L - EKG EKG results: interpreted by me, no acute changes Quality Measures - VTE Contraindication to Pharmacological VTE Prophylaxis: Clinical assessment deems Pt at low risk, no prophalaxis needed Kirill Cameron John Timothy, MD, personally performed the services described in this documentation, ascribed by Sidra Raya RN in my presence, and it is both accurate and complete .
[2016-11-14] MEDS: POTASSIUM CHLORIDE 20 MEQ TABLET PO PRN ×3 (12:25→20:46)
--- NOTE | 2016-11-14 12:52 | Gastrointestinal Progress Note ---
Assessment and Plan (1) Diverticulitis of large intestine with abscess without bleeding Status: Acute Assessment and plan: The patient is having diverticulitis of her sigmoid colon with abscess formation , this will likely require percutaneous drain if not surgery. She is being treated with metronidazole and cefepime and will continue to monitor her white blood cell count to see if this improves spontaneously. She may need repeat colonoscopy to rule out colon cancer but this is unlikely given the fact that she had previous colonoscopy done by Dr. Mcallister back in November 2009. This will need to be down the road at least a month or 2. She does have prior history of polyps and so recheck may be helpful at this point. Given the patient's age I had not planned on looking again but given this recent development will make arrangements to recheck as an outpatient. 11/13/16--white blood cell count has gone from 15.5 down to 12.0 with antibiotic therapy for her underlying diverticulitis/sigmoid abscess. She is due to get a percutaneous drain today. I suspect this will need to be in for approximately 2 weeks to 4 weeks. No other recommendations at this time aside from continuing antibiotics. 11/14/16--Percutaneous drain placed by Dr. Ledezma and has put out some 80 mL of serosanguineous pus--in my discussions with Dr. Brower concerning what will happen with a strain he suggests waiting until early next week and doing an abscess cavity contrast study to see how much remains and then possible discharge although he states that this abscess can take weeks to improve. Current Visit: Yes (2) Gastritis Status: Acute Assessment and plan: Patient is being controlled for this condition on Nexium. She finds her self on Eliquis now but is doing adequately concerning the previous anemia that she had had back during her prior bleed. We will continue to watch her and see if she develops symptoms again and observe for melena. 11/13/16--continue to observe her further melena and anemia 11/14/16--No further issues with the gastritis, although patient has very little appetite. Current Visit: Yes (3) Personal history of colonic polyps Status: Acute Assessment and plan: The patient has a prior history of polyps back before her last colonoscopy in November 2009. We will recheck her for further polyps when we do her next colonoscopy in December/January 2017 after she is improved from the current illness. 11/13/16--we will recheck the patient's colon in approximately 4 to 8 weeks. 11/14/16--Again, will recheck the patient's colon in 4 to 8 weeks. Current Visit: Yes Gastroenterology - PN: Subj Interval history: Patient is having no pain at this time, the previously noted rectal pain is gone away completely with the placement of the percutaneous drain. Abscess output over the last 24 hours is about 80 mL of serosanguineous pus. She has no appetite. She has been advanced from her diet today, previously on clear liquids. Exam (Progress Note) - Constitutional Vitals: Period Temp Pulse Resp BP Sys/Conroy Pulse Ox Last 24 Hr 96.8 F-99.8 F 73-90 16-20 103-143/69-98 93-99 General appearance: no acute distress - Eye Eye exam: Present: EOMI - Respiratory Respiratory exam: Present: clear to auscultation bilaterally - Cardiovascular Cardiovascular exam: Present: regular rate and rhythm - GI/Abdominal GI/Abdominal exam: Present: normal bowel sounds, soft. Absent: distended, tenderness, rebound - Extremities Exam Extremities exam: Absent: edema - Back Exam Back exam: Present: normal inspection - Neurological Exam Neurological exam: Present: alert, oriented X3 - Psychiatric Psychiatric exam: Present: normal affect, normal mood - Skin Skin exam: Present: warm Results - Labs CBC & BMP: 11/14/16 02:13 11/14/16 02:13
--- NOTE | 2016-11-14 13:10 | Hospitalist Progress Note ---
<Nish King - Last Filed: 11/14/16 13:08> Assessment and Plan (1) Atrial fibrillation Status: Chronic Assessment and plan: The patient currently takes Eliquis for the management of her atrial fibrillation. We will Place Eliquis on hold for now due to the presence of an active bleed. We will consult cardiology to evaluate and assist during the clinical encounter. 11/13-rate is controlled. Eliquis remains on hold per cardiology recommendation. 11/14-rate is controlled. Eliquis remains on hold per cardiology recommendation ; agree with events solutions consultant recommendations to resume when stable from a surgical standpoint. Current Visit: Yes Qualifiers: Atrial fibrillation type: persistent Qualified Code(s): I48.1 - Persistent atrial fibrillation (2) Hypokalemia Status: Acute Assessment and plan: Potassium noted 3.2. We will correct and recheck in a.m. 11/13-potassium remains low at 3.2. We will correct the recheck in a.m. 11/14-potassium remains low at 3.1, will correct and start p.o. potassium. Current Visit: Yes (3) Abscess Status: Acute Assessment and plan: The patient was seen and evaluated by surgery. The plan is to possibly perform a percutaneous drainage home tomorrow. We will stop Eliquis for now. We will start empiric antibiotics, cefepime and Flagyl. 11/12-continue empiric antibiotic coverage; agree with surgical plan for interventional radiology percutaneous drainage this a.m. 11/14-percutaneous drain placement on yesterday; abscess culture reported moderate gram-negative rods and heavy white blood cells. We will continue empiric antibiotic coverage and await sensitivity report. Current Visit: Yes (4) Diverticulitis Status: Acute Assessment and plan: We will start empiric antibiotics and gently rehydrate. We will consult GI to evaluate and assist in the clinical encounter. 11/13-we will continue PPIs and empiric antibiotic coverage per GI recommendation. We appreciate the input. Agree with the plan for a colonoscopy in 4-8 weeks in the outpatient setting. Current Visit: Yes Hospitalist: Subjective Interval history: Patient seen and examined; no significant overnight events. Percutaneous drain was placed by interventional radiology on yesterday for diverticular abscess. Chart reviewed. Exam - Constitutional Vitals: Period Temp Pulse Resp BP Sys/Conroy Pulse Ox Last 24 Hr 96.8 F-99.8 F 73-90 16-20 103-143/69-98 93-99 General appearance: normal weight, no acute distress - Head Head exam: Present: normal inspection, normocephalic - Eye Eye exam: Present: EOMI, conjunctival injection Pupils: Present: YU, normal accommodation - ENT ENT exam: Present: normal exam, normal external ear exam - Neck Neck exam: Present: normal inspection. Absent: lymphadenopathy, meningismus - Respiratory Respiratory exam: Present: clear to auscultation bilaterally. Absent: accessory muscle use, chest wall tenderness, decreased breath sounds, rales, rhonchi, stridor, wheezes - Cardiovascular Cardiovascular exam: Present: regular rate and rhythm. Absent: carotid bruit, diastolic murmur, gallop, rubs, tachycardia - GI/Abdominal GI/Abdominal exam: Present: normal bowel sounds, tenderness (Left lower quadrant ; S/P percutaneous drain placement.), soft - Extremities Exam Extremities exam: Present: normal inspection, normal capillary refill, full ROM. Absent: edema - Back Exam Back exam: Present: normal inspection - Neurological Exam Neurological exam: Present: alert, oriented X3, CN II-XII intact - Psychiatric Psychiatric exam: Present: normal affect, normal mood - Skin Skin exam: Present: normal color, warm, dry Results - Labs CBC & BMP: 11/14/16 02:13 11/14/16 02:13 Lab Results: I have reviewed the past 24 hour labs Quality Measures - VTE Contraindication to Pharmacological VTE Prophylaxis: Clinical assessment deems Pt at low risk, no prophalaxis needed <Afua Burnett - Last Filed: 11/14/16 16:53> Hospitalist: Subjective Interval history: She complained of some discomfort around her percutaneous drain Exam - Constitutional Vitals: Period Temp Pulse Resp BP Sys/Conroy Pulse Ox Last 24 Hr 96.8 F-98.0 F 73-90 16-20 103-143/69-98 93-99 Results - Labs CBC & BMP: 11/14/16 02:13 11/14/16 02:13
--- NOTE | 2016-11-14 13:39 | General Surgery Progress Note ---
Assessment and Plan - Time spent with patient Time spent with patient: Less than 30 minutes (1) Diverticulitis Status: Acute Assessment and plan: She feels much better. She has had gradual improvement in her abdominal pannus and is up ambulating. She is afebrile. Continue with antibiotics and drainage. Current Visit: Yes Subjective Patient reports: Present: feels better, pain is less. Absent: nausea, vomiting , fever Exam - Constitutional Vitals: Period Temp Pulse Resp BP Sys/Conroy Pulse Ox Last 24 Hr 96.8 F-99.8 F 73-90 16-20 103-143/69-98 93-99 General appearance: no acute distress - Head Head exam: Present: normocephalic - Eye Eye exam: Absent: scleral icterus - Respiratory Respiratory exam: Absent: accessory muscle use - GI/Abdominal GI/Abdominal exam: Present: soft. Absent: distended, tenderness Results - Labs CBC & BMP: 11/14/16 02:13 11/14/16 02:13 Lab Results: I have reviewed the past 24 hour labs Quality Measures - VTE Contraindication to Pharmacological VTE Prophylaxis: Clinical assessment deems Pt at low risk, no prophalaxis needed
[2016-11-15] MEDS: POTASSIUM CHLORIDE 20 MEQ TABLET PO PRN ×6 (01:23→23:35)
[2016-11-15] MEDS: CEFEPIME 2,000 MG in SODIUM CHLORIDE 0.9% 100 ML IV SCH ×4 (01:24→23:35)
[2016-11-15] MEDS: ONDANSETRON 4 MG/2 ML VIAL IV PRN ×2 (04:39→12:59)
[2016-11-15] MEDS: metroNIDAZOLE INJ 500 MG in PREMIX 1 EACH IV SCH ×3 (06:11→18:00)
--- NOTE | 2016-11-15 08:47 | Cardiology Progress Note ---
Assessment and Plan (1) Atrial fibrillation Status: Chronic Assessment and plan: This is chronic and ventricular response has been well controlled with low-dose beta-nicholas. Chronically anticoagulated with Eliquis for stroke prevention. This will need to be resumed once okay from surgical standpoint. Current Visit: Yes Qualifiers: Atrial fibrillation type: persistent Qualified Code(s): I48.1 - Persistent atrial fibrillation (2) Chronic anticoagulation Status: Acute Assessment and plan: Eliquis for stroke prevention of chronic atrial fibrillation. This will need to be resumed when possible. Current Visit: Yes (3) Diverticulitis Status: Acute Assessment and plan: This is being managed per surgical services. P patient is now status post percutaneous drain placement, and abscess is draining. Antibiotics being given. Current Visit: Yes (4) Hx of heart failure Status: Chronic Assessment and plan: This was due to diastolic dysfunction in 2013 during new onset atrial fibrillation. This is clinically stable and the patient doing well without any symptoms of such. Normal systolic function and LV ejection fraction is 55%. Current Visit: Yes (5) Hypertension Status: Chronic Assessment and plan: This man's overall fairly well controlled. Current Visit: Yes Cardiology - PN: Subj Interval history: Patient is doing well at this time. She still has her draining and. She is receiving antibiotics. She has no cardiac complaints or shortness of breath or chest pain or palpitations. She continues to be off her anticoagulation because of her drains. She is chronic atrial fibrillation and needs to be back on her anticoagulation for stroke prevention as soon as possible. We would like to restart the patient anticoagulation as soon as surgery/ radiology/primary service feels that we can. Exam (Progress Note) - Constitutional Vitals: Period Temp Pulse Resp BP Sys/Conroy Pulse Ox Last 24 Hr 97.5 F-98.6 F 80-94 18-20 103-158/69-96 93-99 Exam: General: Present: No Apparent Distress, she is sitting on the side of the bed. HEENT: Present: PERRL, Normocephaly (Elderly). Absent: Pallor Neck: Present: Supple Neck, Midline Trachea, No JVD/HJR, No Masses, No Bruit Cardiac: Present: Irregularly Regular. Absent: Tachycardia, Bradycardia Lungs: Present: Clear Ascult./Percussion, No Wheeze, Rales, Rhonchi. Absent: Oxygen Neuro: Present: Grossly Intact. Absent: Numbness, Tingling, Weakness, Resting Tremor, Essential Tremor Abdomen: Present: Soft, Active Bowel Sounds, No Masses, No Pulsations/Bruits. Absent: Ascites, Tender, Firm, Distended. Other: Percutaneous drain left pelvic area. Skin: Present: Clear. Absent: Rash, Suspicious Lesions Musculoskeletal: Present: No Fluid Collection Extremities: Present: No Clubbing, No Cyanosis, Normal Upper Extr. Pulses (3+ bilateral), Normal Lower Extr. Pulses (3+ bilaterally), Edema (minimal trace to left lower extremity), Capillary Refill (normal) Result/EKG - Labs CBC & BMP: 11/14/16 02:13 11/14/16 18:36 Labs: Laboratory Results - last 24 hr 11/14/16 18:36 Potassium 3.2 L Quality Measures - VTE Contraindication to Pharmacological VTE Prophylaxis: Clinical assessment deems Pt at low risk, no prophalaxis needed
[2016-11-15] MEDS: PANTOPRAZOLE 40 MG VIAL IV SCH (09:17)
[2016-11-15] MEDS: MORPHINE 2 MG/1 ML SYRINGE IV PRN ×2 (09:17→21:02)
[2016-11-15 09:41] LABS: Basophils # 0.1 10*3/uL (0.0-0.2); Basophils % 0.4 % (0.0-0.8); Eosinophils # 0.1 10*3/uL (0.0-0.87); Eosinophils % 0.4 % (0.00-10.9); Hematocrit 39.9 VOL% (35.7-47.0); Hemoglobin 13.6 GM/DL (12.0-16.0); Immature Granulocytes % 0.7 %; Immature Granulocytes Absolute 0.08 #; Lymphocytes # 1.2 10*3/uL (1.4-4.0); Lymphocytes % 10.5 % (21.3-54.2); Mean Corpuscular HGB Conc 34.1 GM/DL (32-36); Mean Corpuscular Hemoglobin 31 PG (27-34); Mean Corpuscular Volume 90.9 FL (87-102); Mean Platelet Volume 9.9 FL (9.6-12.0); Monocytes # 1.5 10*3/uL (0.11-0.8); Monocytes % 12.6 % (1.7-12.7); Neutrophils # 8.9 10*3/uL (1.4-7.4); Neutrophils % 75.4 % (38.7-73.9); Platelet Count 208 T/CUMM (130-400); Red Blood Count 4.39 MC/CUMM (3.8-5.5); Red Cell Distribution Width 13.2 % (9.3-17.3); White Blood Count 11.9 T/CUMM (4-12)
[2016-11-15 10:09] LABS: Calcium 7.7 MG/DL (8.5-10.1); Potassium 3.6 MMOL/L (3.5-5.1)
[2016-11-15] MEDS ORDERED: TEMAZEPAM 7.5 MG CAPSULE PO PRN (10:10)
--- NOTE | 2016-11-15 10:14 | Gastrointestinal Progress Note ---
Assessment and Plan (1) Diverticulitis of large intestine with abscess without bleeding Status: Acute Assessment and plan: The patient is having diverticulitis of her sigmoid colon with abscess formation , this will likely require percutaneous drain if not surgery. She is being treated with metronidazole and cefepime and will continue to monitor her white blood cell count to see if this improves spontaneously. She may need repeat colonoscopy to rule out colon cancer but this is unlikely given the fact that she had previous colonoscopy done by Dr. Mcallister back in November 2009. This will need to be down the road at least a month or 2. She does have prior history of polyps and so recheck may be helpful at this point. Given the patient's age I had not planned on looking again but given this recent development will make arrangements to recheck as an outpatient. 11/13/16--white blood cell count has gone from 15.5 down to 12.0 with antibiotic therapy for her underlying diverticulitis/sigmoid abscess. She is due to get a percutaneous drain today. I suspect this will need to be in for approximately 2 weeks to 4 weeks. No other recommendations at this time aside from continuing antibiotics. 11/14/16--Percutaneous drain placed by Dr. Ledezma and has put out some 80 mL of serosanguineous pus--in my discussions with Dr. Brower concerning what will happen with a strain he suggests waiting until early next week and doing an abscess cavity contrast study to see how much remains and then possible discharge although he states that this abscess can take weeks to improve. 11/15/16--Awaiting Thursday for recheck on relative size of abscess cavity. Otherwise this patient can certainly be discharged home to follow-up with interventional radiology and they feel that her next cavity check is due. I suspect the tube may need to be left in for 2-4 weeks. Current Visit: Yes (2) Gastritis Status: Acute Assessment and plan: Patient is being controlled for this condition on Nexium. She finds her self on Eliquis now but is doing adequately concerning the previous anemia that she had had back during her prior bleed. We will continue to watch her and see if she develops symptoms again and observe for melena. 11/13/16--continue to observe her further melena and anemia 11/14/16--No further issues with the gastritis, although patient has very little appetite. 11/15/16--No other issues noted. Current Visit: Yes (3) Personal history of colonic polyps Status: Acute Assessment and plan: The patient has a prior history of polyps back before her last colonoscopy in November 2009. We will recheck her for further polyps when we do her next colonoscopy in January 2017 after she is improved from the current illness. 11/13/16--we will recheck the patient's colon in approximately 4 to 8 weeks. 11/14/16--Again, will recheck the patient's colon in 4 to 8 weeks. 11/15/16--no change from above plan Current Visit: Yes Gastroenterology - PN: Subj Interval history: Low-grade diarrhea but the patient is still on clear liquid diet and I think we can probably advance that at this point. Hold off on checking for C. difficile despite the antibiotics. The patient is having some sundowning at night and I suspect she would tolerate a low-dose benzodiazepine fairly well, will write her for some temazepam 7.5 mg as needed to help her sleep if needed. Exam (Progress Note) - Constitutional Vitals: Period Temp Pulse Resp BP Sys/Conroy Pulse Ox Last 24 Hr 97.5 F-98.6 F 80-94 18-20 103-158/69-96 93-99 General appearance: no acute distress - Head Head exam: Present: normal inspection - Eye Eye exam: Present: EOMI Pupils: Present: YU - Respiratory Respiratory exam: Present: clear to auscultation bilaterally. Absent: rhonchi, stridor, wheezes - Cardiovascular Cardiovascular exam: Present: regular rate and rhythm - GI/Abdominal GI/Abdominal exam: Present: normal bowel sounds, soft. Absent: distended, guarding, tenderness (No tenderness in any quadrant), rebound - Back Exam Back exam: Present: normal inspection - Neurological Exam Neurological exam: Present: alert, oriented X3 Results - Labs CBC & BMP: 11/15/16 08:56 11/15/16 08:56
[2016-11-15] MEDS: SODIUM CHLORIDE 0.9% 1,000 ML IV SCH ×3 (11:02→23:36)
--- NOTE | 2016-11-15 11:43 | General Surgery Progress Note ---
Assessment and Plan (1) Diverticulitis Status: Acute Assessment and plan: She feels much better. She has had gradual improvement in her abdominal pannus and is up ambulating. She is afebrile. Continue with antibiotics and drainage. 11/15: She continues to improve and feels better. I would like to continue with the drainage for several more days and we will continue the IV antibiotics during that time. Current Visit: Yes Subjective Patient reports: Present: feels better, pain is less. Absent: nausea, vomiting , fever Exam - Constitutional Vitals: Period Temp Pulse Resp BP Sys/Conroy Pulse Ox Last 24 Hr 97.5 F-98.6 F 80-94 18-20 134-158/69-96 93-99 General appearance: no acute distress - Head Head exam: Present: normocephalic - Eye Eye exam: Absent: scleral icterus - Respiratory Respiratory exam: Absent: accessory muscle use - GI/Abdominal GI/Abdominal exam: Present: soft. Absent: distended, tenderness - Neurological Exam Neurological exam: Present: alert, oriented X3 Results - Labs CBC & BMP: 11/15/16 08:56 11/15/16 08:56 Lab Results: I have reviewed the past 24 hour labs Quality Measures - VTE Contraindication to Pharmacological VTE Prophylaxis: Clinical assessment deems Pt at low risk, no prophalaxis needed
[2016-11-15] MEDS ORDERED: traMADol 50 MG TABLET PO PRN (11:59)
--- NOTE | 2016-11-15 16:41 | Hospitalist Progress Note ---
Assessment and Plan (1) Abscess Status: Acute Assessment and plan: Pt. still has drain intact. Continue antibiotics. Current Visit: Yes (2) Diverticulitis Status: Acute Assessment and plan: Continue PPI and antibiotic therapy. GI following. Pt. will follow up in 4-8 weeks. Current Visit: Yes (3) Hypokalemia Status: Acute Assessment and plan: K 3.4. Replace per protocol. Current Visit: Yes (4) Atrial fibrillation Status: Chronic Current Visit: Yes Qualifiers: Atrial fibrillation type: persistent Qualified Code(s): I48.1 - Persistent atrial fibrillation Hospitalist: Subjective Interval history: Pt. seen and examined. Pt. not in any apparent distress. Denies any issues overnight. Exam - Constitutional Vitals: Period Temp Pulse Resp BP Sys/Conroy Pulse Ox Last 24 Hr 97.5 F-98.7 F 74-94 18-20 134-158/69-96 95-99 General appearance: normal weight, no acute distress - Head Head exam: Present: normal inspection, normocephalic - Eye Eye exam: Present: EOMI Pupils: Present: YU - Respiratory Respiratory exam: Present: clear to auscultation bilaterally - GI/Abdominal GI/Abdominal exam: Present: normal bowel sounds, soft. Absent: tenderness - Neurological Exam Neurological exam: Present: alert, oriented X3 - Psychiatric Psychiatric exam: Present: normal affect, normal mood - Skin Skin exam: Present: normal color, warm, dry Results - Labs CBC & BMP: 11/15/16 08:56 11/15/16 15:19 Lab Results: I have reviewed the past 24 hour labs Quality Measures - VTE Contraindication to Pharmacological VTE Prophylaxis: Clinical assessment deems Pt at low risk, no prophalaxis needed
[2016-11-16] MEDS: metroNIDAZOLE INJ 500 MG in PREMIX 1 EACH IV SCH ×5 (01:20→23:29)
[2016-11-16] MEDS: MORPHINE 2 MG/1 ML SYRINGE IV PRN ×4 (04:41→23:48)
--- NOTE | 2016-11-16 07:13 | Cardiology Progress Note ---
Assessment and Plan (1) Atrial fibrillation Status: Chronic Assessment and plan: This is chronic and ventricular response has been well controlled with low-dose beta-nicholas. We will restart the patient's carvedilol since her heart rates running the 80s and 90s for the most part now. Chronically anticoagulated with Eliquis for stroke prevention. This will need to be resumed once okay from surgical standpoint. Also question if we can at least start her on Lovenox at low dose for DVT prophylaxis that may help some and protection from stroke with her A. fib.. Current Visit: Yes Qualifiers: Atrial fibrillation type: persistent Qualified Code(s): I48.1 - Persistent atrial fibrillation (2) Chronic anticoagulation Status: Chronic Assessment and plan: Eliquis for stroke prevention of chronic atrial fibrillation. This will need to be resumed when possible. Current Visit: Yes (3) Diverticulitis Status: Acute Assessment and plan: This is being managed per surgical services. Patient is now status post percutaneous drain placement, and abscess is draining. Antibiotics being given. Current Visit: Yes (4) Hx of heart failure Status: Chronic Assessment and plan: This was due to diastolic dysfunction in 2013 during new onset atrial fibrillation. This is clinically stable and the patient doing well without any symptoms of such. Normal systolic function and LV ejection fraction is 55%. Current Visit: Yes (5) Hypertension Status: Chronic Assessment and plan: Blood pressures are doing fairly well there up a little on the higher side. We will go ahead and restart her carvedilol. Current Visit: Yes Cardiology - PN: Subj Interval history: Patient denies any shortness of breath or chest pain. She has her chronic atrial fibrillation for which she has been on chronic anticoagulation which is being held because of her GI issues. We would like to restart the patient's anticoagulation as soon as surgery feels that we can. If we can at least placed her on some Lovenox for DVT prophylaxis if not contraindicated with her GI issues and drain. I am we will go ahead and restart her carvedilol. Her heart rates are now up a little bit and her blood pressures running on the higher side. Patient is generally overall doing well. Exam (Progress Note) - Constitutional Vitals: Period Temp Pulse Resp BP Sys/Conroy Pulse Ox Last 24 Hr 97.4 F-98.7 F 67-98 18-20 134-158/70-91 96-99 Exam: General: Present: No Distress, she is sitting on the side of the bed. HEENT: Present: PERRL, Normocephaly . Absent: Pallor Neck: Present: Supple Neck, Midline Trachea, No JVD/HJR, No Masses, No Bruit Cardiac: Present: Irregularly Regular. No murmur. Absent: Tachycardia, Bradycardia Lungs: Present: Clear on auscultation. No Wheeze, Rales, Rhonchi. Absent: Oxygen Neuro: Present: Grossly Intact. She is alert and oriented. Abdomen: Present: Soft, Active Bowel Sounds, No Masses, No Pulsations/Bruits. Absent: Ascites, Tender, Firm, Distended. Other: Percutaneous drain left pelvic area. Skin: Warm and dry. Musculoskeletal: Present: No Fluid Collection Extremities: Present: No Clubbing, No Cyanosis, Normal Upper Extr. Pulses (3+ bilateral), Normal Lower Extr. Pulses (3+ bilaterally), no lower extremity edema. Result/EKG - Labs CBC & BMP: 11/15/16 08:56 11/16/16 05:09 Lab Results: I have reviewed the past 24 hour labs Labs: Laboratory Results - last 24 hr 11/15/16 11/15/16 11/15/16 08:56 08:56 15:19 WBC 11.9 RBC 4.39 Hgb 13.6 Hct 39.9 MCV 90.9 MCH 31 MCHC 34.1 RDW 13.2 Plt Count 208 MPV 9.9 Neut % (Auto) 75.4 H Lymph % (Auto) 10.5 L Hughes % (Auto) 12.6 Eos % (Auto) 0.4 Baso % (Auto) 0.4 Neut # (Auto) 8.9 H Lymph # (Auto) 1.2 L Hughes # (Auto) 1.5 H Eos # (Auto) 0.1 Baso # (Auto) 0.1 Immature Gran % 0.7 Nucleated RBC % 0.0 Immature Gran # 0.08 Nucleated RBCs # 0.00 Sodium 136 Potassium 3.6 3.4 L Chloride 100 Carbon Dioxide 26 Anion Gap 13.6 BUN 11 Creatinine 1.10 H GFR Calculation 44 BUN/Creatinine Ratio 10.00 Glucose 188 H Calculated Osmolality 275.0 Calcium 7.7 L 11/16/16 05:09 WBC RBC Hgb Hct MCV MCH MCHC RDW Plt Count MPV Neut % (Auto) Lymph % (Auto) Hughes % (Auto) Eos % (Auto) Baso % (Auto) Neut # (Auto) Lymph # (Auto) Hughes # (Auto) Eos # (Auto) Baso # (Auto) Immature Gran % Nucleated RBC % Immature Gran # Nucleated RBCs # Sodium Potassium 3.8 Chloride Carbon Dioxide Anion Gap BUN Creatinine GFR Calculation BUN/Creatinine Ratio Glucose Calculated Osmolality Calcium Quality Measures - VTE Contraindication to Pharmacological VTE Prophylaxis: Clinical assessment deems Pt at low risk, no prophalaxis needed
[2016-11-16] MEDS ORDERED: ALBUTEROL/IPRATROPIUM 3 ML NEB RESP TX PRN (09:31)
[2016-11-16] MEDS ORDERED: ALPRAZolam 0.25 MG TABLET PO ONE (09:31)
[2016-11-16] MEDS: PANTOPRAZOLE 40 MG VIAL IV SCH (09:55)
[2016-11-16] MEDS: CARVEDILOL 3.125 MG TABLET PO SCH ×2 (09:55→20:38)
[2016-11-16] MEDS: CEFEPIME 2,000 MG in SODIUM CHLORIDE 0.9% 100 ML IV SCH ×2 (09:56→13:30)
--- NOTE | 2016-11-16 10:47 | XRay Report ---
XR chest 1V portable Indication: Shortness of breath. Chest one view: Comparison 08/20/2010. Mild cardiomegaly is again shown with increased interstitial prominence of the lungs and central pulmonary vascular congestion. No discrete infiltrate identified. Pleural spaces appear clear. Impression: CHF decompensation. PROCEDURE INTERPRETED AT [facility] [place] DEPARTMENT OF RADIOLOGY Final Report Signed by: Jairo Ledezma M.D.
--- NOTE | 2016-11-16 10:56 | General Surgery Progress Note ---
Assessment and Plan (1) Diverticulitis Status: Acute Assessment and plan: She feels much better. She has had gradual improvement in her abdominal pannus and is up ambulating. She is afebrile. Continue with antibiotics and drainage. 11/15: She continues to improve and feels better. I would like to continue with the drainage for several more days and we will continue the IV antibiotics during that time. 11/16: She appears to be responding to antibiotics and drainage. Her abdomen feels better. We will continue drainage and antibiotics for now and may look at repeat imaging in the next day or 2. Current Visit: Yes Subjective Patient reports: Present: feels better. Absent: still having pain, nausea, vomiting, fever Exam - Constitutional Vitals: Period Temp Pulse Resp BP Sys/Conroy Pulse Ox Last 24 Hr 97.4 F-98.7 F 67-98 18-20 134-145/70-88 96-98 General appearance: no acute distress - Respiratory Respiratory exam: Absent: accessory muscle use - GI/Abdominal GI/Abdominal exam: Present: soft. Absent: distended, tenderness, rebound Results - Labs CBC & BMP: 11/15/16 08:56 11/16/16 05:09 Quality Measures - VTE Contraindication to Pharmacological VTE Prophylaxis: Clinical assessment deems Pt at low risk, no prophalaxis needed
[2016-11-16] MEDS ORDERED: FUROSEMIDE 40 MG/4 ML VIAL IV ONE (11:39)
--- NOTE | 2016-11-16 11:56 | Hospitalist Progress Note ---
<Louise Rivera - Last Filed: 11/16/16 11:53> Assessment and Plan (1) Abscess Status: Acute Assessment and plan: Pt. still has drain intact. Continue antibiotics. Current Visit: Yes (2) Diverticulitis Status: Acute Assessment and plan: Continue PPI and antibiotic therapy. GI following. Pt. will follow up in 4-8 weeks. Current Visit: Yes (3) Hypokalemia Status: Acute Assessment and plan: K 3.4. Replace per protocol. 11/16 K 3.8 today. Current Visit: Yes (4) Atrial fibrillation Status: Chronic Assessment and plan: Pt. has afib and needs to be anticoagulated. Anticoagulation has been held due to drain being placed. Will restart when we have ok from surgery. Current Visit: Yes Qualifiers: Atrial fibrillation type: persistent Qualified Code(s): I48.1 - Persistent atrial fibrillation Hospitalist: Subjective Interval history: Pt. seen and examined. Pt. denies any shortness of breath but does state that she had an episode this morning when she had difficulty breathing. CXR ordered and IVF fluids discontinued. Supplemental O2 noted. No apparent distress noted. Patient is afebrile and pain-free. Percutaneous drain intact and draining. Patient's Eliquis currently being held due to her GI issues. Hope to remove when drain is removed. Exam - Constitutional Vitals: Period Temp Pulse Resp BP Sys/Conroy Pulse Ox Last 24 Hr 97.4 F-98.7 F 67-98 18-20 134-145/70-88 96-98 General appearance: normal weight, no acute distress - Head Head exam: Present: normal inspection, normocephalic - Eye Eye exam: Present: EOMI Pupils: Present: YU. Absent: fixed - ENT ENT exam: Present: normal exam - Neck Neck exam: Present: normal inspection. Absent: thyromegaly - Respiratory Respiratory exam: Present: other (coarse). Absent: clear to auscultation bilaterally - Cardiovascular Cardiovascular exam: Present: regular rate and rhythm - GI/Abdominal GI/Abdominal exam: Present: normal bowel sounds, soft. Absent: tenderness - Extremities Exam Extremities exam: Present: normal capillary refill, full ROM. Absent: edema - Neurological Exam Neurological exam: Present: alert, oriented X3 - Psychiatric Psychiatric exam: Present: normal affect, normal mood - Skin Skin exam: Present: normal color, warm, dry Results - Labs CBC & BMP: 11/15/16 08:56 11/16/16 05:09 Lab Results: I have reviewed the past 24 hour labs Quality Measures - VTE Contraindication to Pharmacological VTE Prophylaxis: Clinical assessment deems Pt at low risk, no prophalaxis needed <Afua Burnett - Last Filed: 11/16/16 13:49> Hospitalist: Subjective Interval history: CXR showed CHF. She has received IV Lasix, IVF has been held, will get an Echo. Exam - Constitutional Vitals: Period Temp Pulse Resp BP Sys/Conroy Pulse Ox Last 24 Hr 97.4 F-99.3 F 67-98 18-20 111-145/64-88 96-98 Results - Labs CBC & BMP: 11/15/16 08:56 11/16/16 05:09
--- NOTE | 2016-11-16 12:30 | Gastrointestinal Progress Note ---
Assessment and Plan (1) Diverticulitis of large intestine with abscess without bleeding Status: Acute Assessment and plan: The patient is having diverticulitis of her sigmoid colon with abscess formation , this will likely require percutaneous drain if not surgery. She is being treated with metronidazole and cefepime and will continue to monitor her white blood cell count to see if this improves spontaneously. She may need repeat colonoscopy to rule out colon cancer but this is unlikely given the fact that she had previous colonoscopy done by Dr. Mcallister back in November 2009. This will need to be down the road at least a month or 2. She does have prior history of polyps and so recheck may be helpful at this point. Given the patient's age I had not planned on looking again but given this recent development will make arrangements to recheck as an outpatient. 11/13/16--white blood cell count has gone from 15.5 down to 12.0 with antibiotic therapy for her underlying diverticulitis/sigmoid abscess. She is due to get a percutaneous drain today. I suspect this will need to be in for approximately 2 weeks to 4 weeks. No other recommendations at this time aside from continuing antibiotics. 11/14/16--Percutaneous drain placed by Dr. Ledezma and has put out some 80 mL of serosanguineous pus--in my discussions with Dr. Brower concerning what will happen with a strain he suggests waiting until early next week and doing an abscess cavity contrast study to see how much remains and then possible discharge although he states that this abscess can take weeks to improve. 11/15/16--Awaiting Thursday for recheck on relative size of abscess cavity. Otherwise this patient can certainly be discharged home to follow-up with interventional radiology and they feel that her next cavity check is due. Discussed with surgery indicated that if the patient is doing well she may be able to go home without the tube. 11/16/16--As noted above. The output from the drain is down from 5 mL per shift to 0 with the last shift. The patient can certainly be restarted on her Eliquis at this time from my standpoint, await above tests. Current Visit: Yes (2) Gastritis Status: Acute Assessment and plan: Patient is being controlled for this condition on Nexium. She finds her self on Eliquis now but is doing adequately concerning the previous anemia that she had had back during her prior bleed. We will continue to watch her and see if she develops symptoms again and observe for melena. 11/13/16--continue to observe her further melena and anemia 11/14/16--No further issues with the gastritis, although patient has very little appetite. 11/15/16--No other issues noted. 11/16/16--Eating adequately at this point. From my standpoint she could certainly restart her Eliquis. Current Visit: Yes (3) Personal history of colonic polyps Status: Inactive Assessment and plan: The patient has a prior history of polyps back before her last colonoscopy in November 2009. We will recheck her for further polyps when we do her next colonoscopy in January 2017 after she is improved from the current illness. 11/13/16--we will recheck the patient's colon in approximately 4 to 8 weeks. 11/14/16--Again, will recheck the patient's colon in 4 to 8 weeks. 11/15/16--no change from above plan Current Visit: Yes Gastroenterology - PN: Subj Interval history: No new complaints. Exam (Progress Note) - Constitutional Vitals: Period Temp Pulse Resp BP Sys/Conroy Pulse Ox Last 24 Hr 97.4 F-99.3 F 67-98 18-20 111-145/64-88 96-98 General appearance: no acute distress - Head Head exam: Present: normal inspection, normocephalic - Eye Eye exam: Present: EOMI Pupils: Present: YU - Respiratory Respiratory exam: Present: clear to auscultation bilaterally - Cardiovascular Cardiovascular exam: Present: regular rate and rhythm - GI/Abdominal GI/Abdominal exam: Present: normal bowel sounds, soft. Absent: distended, guarding, tenderness, rebound - Extremities Exam Extremities exam: Present: edema - Neurological Exam Neurological exam: Present: alert, oriented X3 - Psychiatric Psychiatric exam: Present: normal affect, normal mood - Skin Skin exam: Present: warm Results - Labs CBC & BMP: 11/15/16 08:56 11/16/16 05:09
[2016-11-17] MEDS: CEFEPIME 2,000 MG in SODIUM CHLORIDE 0.9% 100 ML IV SCH ×2 (01:20→14:38)
[2016-11-17] MEDS: metroNIDAZOLE INJ 500 MG in PREMIX 1 EACH IV SCH ×2 (05:28→11:53)
[2016-11-17 05:46] LABS: Basophils # 0.1 10*3/uL (0.0-0.2); Basophils % 0.9 % (0.0-0.8); Eosinophils # 0.5 10*3/uL (0.0-0.87); Eosinophils % 5.1 % (0.00-10.9); Hematocrit 34.3 VOL% (35.7-47.0); Hemoglobin 11.5 GM/DL (12.0-16.0); Immature Granulocytes % 0.8 %; Immature Granulocytes Absolute 0.07 #; Lymphocytes # 1.5 10*3/uL (1.4-4.0); Lymphocytes % 16.2 % (21.3-54.2); Mean Corpuscular HGB Conc 33.5 GM/DL (32-36); Mean Corpuscular Hemoglobin 31 PG (27-34); Mean Corpuscular Volume 91.7 FL (87-102); Mean Platelet Volume 10.1 FL (9.6-12.0); Monocytes # 1.4 10*3/uL (0.11-0.8); Monocytes % 15.3 % (1.7-12.7); Neutrophils # 5.7 10*3/uL (1.4-7.4); Neutrophils % 61.7 % (38.7-73.9); Platelet Count 178 T/CUMM (130-400); Red Blood Count 3.74 MC/CUMM (3.8-5.5); Red Cell Distribution Width 13.2 % (9.3-17.3); White Blood Count 9.2 T/CUMM (4-12)
[2016-11-17 06:22] LABS: Calcium 7.6 MG/DL (8.5-10.1); Magnesium 1.9 MG/DL (1.8-2.4); Osmolality,Calculated 275.8 MOS/KG (273-304); Potassium 3.5 MMOL/L (3.5-5.1)
[2016-11-17] MEDS ORDERED: FUROSEMIDE 40 MG/4 ML VIAL IV ONE ×2 (06:44→08:55)
--- NOTE | 2016-11-17 06:47 | Gastrointestinal Progress Note ---
Assessment and Plan (1) Diverticulitis of large intestine with abscess without bleeding Status: Acute Assessment and plan: The patient is having diverticulitis of her sigmoid colon with abscess formation , this will likely require percutaneous drain if not surgery. She is being treated with metronidazole and cefepime and will continue to monitor her white blood cell count to see if this improves spontaneously. She may need repeat colonoscopy to rule out colon cancer but this is unlikely given the fact that she had previous colonoscopy done by Dr. Mcallister back in November 2009. This will need to be down the road at least a month or 2. She does have prior history of polyps and so recheck may be helpful at this point. Given the patient's age I had not planned on looking again but given this recent development will make arrangements to recheck as an outpatient. 11/13/16--white blood cell count has gone from 15.5 down to 12.0 with antibiotic therapy for her underlying diverticulitis/sigmoid abscess. She is due to get a percutaneous drain today. I suspect this will need to be in for approximately 2 weeks to 4 weeks. No other recommendations at this time aside from continuing antibiotics. 11/14/16--Percutaneous drain placed by Dr. Ledezma and has put out some 80 mL of serosanguineous pus--in my discussions with Dr. Brower concerning what will happen with a strain he suggests waiting until early next week and doing an abscess cavity contrast study to see how much remains and then possible discharge although he states that this abscess can take weeks to improve. 11/15/16--Awaiting Thursday for recheck on relative size of abscess cavity. Otherwise this patient can certainly be discharged home to follow-up with interventional radiology and they feel that her next cavity check is due. Discussed with surgery indicated that if the patient is doing well she may be able to go home without the tube. 11/16/16--As noted above. The output from the drain is down from 5 mL per shift to 0 with the last shift. The patient can certainly be restarted on her Eliquis at this time from my standpoint, await above tests. 11/17/16--The drain has not put out any significant fluid over the last 24 hours. Likely the patient will have this pulled either today or tomorrow when they go for the "abscessogram". She is not having any significant pain. I suspect that the surgeon may recommend that this be pulled before she goes home. White count is down to 9 this morning. Overall I think she is doing very well. Current Visit: Yes (2) Gastritis Status: Acute Assessment and plan: Patient is being controlled for this condition on Nexium. She finds her self on Eliquis now but is doing adequately concerning the previous anemia that she had had back during her prior bleed. We will continue to watch her and see if she develops symptoms again and observe for melena. 11/13/16--continue to observe her further melena and anemia 11/14/16--No further issues with the gastritis, although patient has very little appetite. 11/15/16--No other issues noted. 11/16/16--Eating adequately at this point. From my standpoint she could certainly restart her Eliquis. 11/17/16--No complaints. Food being tolerated well. Patient on a low residue diet. Current Visit: Yes Gastroenterology - PN: Subj Interval history: The patient has developed some CHF and did better after having her fluids tapered somewhat yesterday and having a dose of Lasix. 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 She does not appear uncomfortable. She is not having any abdominal pain. The patient is eating adequately. Only 300 mL of urine output last night, the patient has not had a bowel movement in 2 days. Exam (Progress Note) - Constitutional Vitals: Period Temp Pulse Resp BP Sys/Conroy Pulse Ox Last 24 Hr 97.1 F-99.3 F 70-84 18-20 111-145/64-79 96-98 General appearance: no acute distress - Head Head exam: Present: normocephalic, atraumatic - Eye Eye exam: Present: EOMI Pupils: Present: YU - Respiratory Respiratory exam: Present: clear to auscultation bilaterally. Absent: rhonchi, stridor, wheezes - Cardiovascular Cardiovascular exam: Present: regular rate and rhythm - GI/Abdominal GI/Abdominal exam: Present: normal bowel sounds, soft. Absent: distended, guarding, rebound - Extremities Exam Extremities exam: Present: edema - Neurological Exam Neurological exam: Present: alert, oriented X3, CN II-XII intact. Absent: motor sensory deficit - Psychiatric Psychiatric exam: Present: normal affect, normal mood - Skin Skin exam: Present: warm Results - Labs CBC & BMP: 11/17/16 04:47 11/17/16 04:47
[2016-11-17] MEDS: ONDANSETRON 4 MG/2 ML VIAL IV PRN ×2 (08:33→14:39)
[2016-11-17] MEDS: CARVEDILOL 3.125 MG TABLET PO SCH ×2 (08:33→20:54)
[2016-11-17] MEDS: PANTOPRAZOLE 40 MG VIAL IV SCH (08:37)
--- NOTE | 2016-11-17 08:57 | General Surgery Progress Note ---
Assessment and Plan (1) Diverticulitis Status: Acute Assessment and plan: She feels much better. She has had gradual improvement in her abdominal pannus and is up ambulating. She is afebrile. Continue with antibiotics and drainage. 11/15: She continues to improve and feels better. I would like to continue with the drainage for several more days and we will continue the IV antibiotics during that time. 11/16: She appears to be responding to antibiotics and drainage. Her abdomen feels better. We will continue drainage and antibiotics for now and may look at repeat imaging in the next day or 2. 11/17: She feels like she is failed to progress over the last couple of days. She is complaining of nausea today but is eating. She is not having fever and her white blood cell count is come down. She still is at risk for residual abscess. We will get follow-up imaging with CT scan today. Current Visit: Yes Subjective Patient reports: Present: tolerating a regular diet, nausea. Absent: feels better, vomiting, fever Exam - Constitutional Vitals: Period Temp Pulse Resp BP Sys/Conroy Pulse Ox Last 24 Hr 97.1 F-99.3 F 68-79 18-20 111-143/64-76 97-98 General appearance: no acute distress - Head Head exam: Present: normocephalic - Eye Eye exam: Absent: scleral icterus - Respiratory Respiratory exam: Absent: accessory muscle use - GI/Abdominal GI/Abdominal exam: Present: soft. Absent: distended, tenderness Results - Labs CBC & BMP: 11/17/16 04:47 11/17/16 04:47 Lab Results: I have reviewed the past 24 hour labs Quality Measures - VTE Contraindication to Pharmacological VTE Prophylaxis: Clinical assessment deems Pt at low risk, no prophalaxis needed
--- NOTE | 2016-11-17 09:16 | Orthopedic Progress Note ---
Orthopedics - Subjective Interval history: Comfortable tolerating cast follow-up 2 week Exam - Constitutional Vitals: Period Temp Pulse Resp BP Sys/Conroy Pulse Ox Last 24 Hr 97.1 F-99.3 F 68-79 18-20 111-143/64-76 97-98 Results - Labs CBC & BMP: 11/17/16 04:47 11/17/16 04:47 Quality Measures - VTE Contraindication to Pharmacological VTE Prophylaxis: Clinical assessment deems Pt at low risk, no prophalaxis needed
--- NOTE | 2016-11-17 12:38 | Cardiology Progress Note ---
Elver Cameron Vanessa, RN, am scribing for, and in the presence of, Andrea Roldan MD 12:38. Assessment and Plan - Time spent with patient Time spent with patient: Greater than 30 minutes (1) Atrial fibrillation Status: Chronic Assessment and plan: Ventricular response has been well controlled with low-dose beta-nicholas. Chronically anticoagulated with Eliquis for stroke prevention. Anticoagulant needs to be resumed once it is okay from surgical standpoint. Current Visit: Yes Qualifiers: Atrial fibrillation type: persistent Qualified Code(s): I48.1 - Persistent atrial fibrillation (2) Chronic anticoagulation Status: Chronic Assessment and plan: Eliquis for stroke prevention of chronic atrial fibrillation. This will need to be resumed when possible. Current Visit: Yes (3) Diverticulitis Status: Acute Assessment and plan: This is being managed per surgical services. Patient is now status post drain placement on November 14. Symptoms have improved. Patient is scheduled for follow- up CT scan today. Current Visit: Yes (4) Hx of heart failure Status: Chronic Assessment and plan: This was due to diastolic dysfunction in 2013 during new onset atrial fibrillation. Clinically, she remains well compensated since that time. Normal systolic function and LV ejection fraction is 55%. Current Visit: Yes (5) Hypertension Status: Chronic Assessment and plan: Blood pressure has been well controlled. Continue current medication regimen. Current Visit: Yes (6) Hypothyroidism Status: Chronic Assessment and plan: Chronic. Current Visit: Yes (7) GERD (gastroesophageal reflux disease) Status: Inactive Assessment and plan: PPI continued. Current Visit: Yes Cardiology - PN: Subj Interval history: PRIMARY AUTO BODY REPAIR ESTIMATOR: DR. HARRISON SUMMARY: Ms. Alatorre is an 89-year-old white female with risk factors including age, hypertension, family history of CAD. Past medical history includes chronic atrial fibrillation, hypothyroidism, GI bleeding. Patient is chronically anticoagulated with Eliquis. Patient was admitted to the hospital on November 12 with rectal pain, and subsequently found to have diverticulitis with abscess. Per surgical services, patient has now had a drain placed. Her symptoms are improving. Cardiology was asked to see as patient has history of atrial fibrillation and requires chronic anticoagulation. October UPDATE: Mr. Alatorre rested well last night without complaint. No chest pain or shortness of breath. Does report she is having some nausea with no vomiting. Patient is scheduled for CT scan later today to evaluate for residual abscess. Afebrile, systolic BP 110-140 mmHg. Labs reviewed. WBC 9200. H&H 11.5/34.3. Potassium 3.5. Magnesium 1.9. Creatinine 1.0 GFR 49. Current Medications Albuterol/Ipratropium (Duoneb) 3 ml RESP TX RT Q4H PRN PRN Reason: Shortness of Breath/Wheezing Carvedilol (Coreg) 3.125 mg PO BID [facility] Last Admin: 11/17/16 08:33 Dose: 3.125 mg Metronidazole/Sodium Chloride (500 mg/ Premix) 100 mls @ 100 mls/hr IV Q6H [facility] Last Admin: 11/17/16 11:53 Dose: 75 mls/hr Magnesium Sulfate 2 gm/ Premix 50 mls @ 25 mls/hr IV .PER PROTOCOL PRN; Protocol PRN Reason: Per Protocol Last Infusion: 11/13/16 10:38 Dose: Infused Magnesium Sulfate 4 gm/ Premix 100 mls @ 25 mls/hr IV .PER PROTOCOL PRN; Protocol PRN Reason: Per Protocol Cefepime HCl 2,000 mg/ Sodium (Chloride) 100 mls @ 200 mls/hr IV Q12H [facility] Last Infusion: 11/17/16 05:27 Dose: Infused Morphine Sulfate () 2 mg IV Q4H PRN PRN Reason: Pain Severe (8-10) Last Admin: 11/16/16 23:48 Dose: 2 mg Ondansetron HCl (Zofran Inj) 4 mg IV Q4H PRN PRN Reason: Nausea Last Admin: 11/17/16 08:33 Dose: 4 mg Pantoprazole Sodium (Protonix Inj) 40 mg IV DAILY [facility] Last Admin: 11/17/16 08:37 Dose: 40 mg Potassium Chloride (K Dur) 20 meq PO .PER PROTOCOL PRN; Protocol PRN Reason: Per Protocol Last Admin: 11/15/16 23:35 Dose: 20 meq Temazepam (Restoril) 7.5 mg PO BEDTIME PRN PRN Reason: Sleep Tramadol HCl (Ultram) 50 mg PO Q6H PRN PRN Reason: Pain Last Admin: 11/15/16 12:59 Dose: 50 mg Exam (Progress Note) - Constitutional Vitals: Period Temp Pulse Resp BP Sys/Conroy Pulse Ox Last 24 Hr 97.1 F-99.3 F 68-79 18-20 111-143/64-76 97-98 Exam: General: Present: No Distress HEENT: Present: PERRL, Normocephaly . Absent: Pallor Neck: Present: Supple Neck, Midline Trachea, No JVD/HJR, No Masses, No Bruit Cardiac: Present: Irregularly Regular. No murmur. Absent: Tachycardia, Bradycardia Lungs: Present: Clear on auscultation. No Wheeze, Rales, Rhonchi. Absent: Oxygen Neuro: Present: Grossly Intact. She is alert and oriented. Abdomen: Present: Soft, Active Bowel Sounds, No Masses, No Pulsations/Bruits. Absent: Ascites, Tender, Firm, Distended. Other: Percutaneous drain left pelvic area. Skin: Warm and dry. Musculoskeletal: Present: No Fluid Collection Extremities: Present: No Clubbing, No Cyanosis, Normal Upper Extr. Pulses (3+ bilateral), Normal Lower Extr. Pulses (3+ bilaterally), no lower extremity edema. Result/EKG - Labs CBC & BMP: 11/17/16 04:47 11/17/16 04:47 Lab Results: I have reviewed the past 24 hour labs Labs: Laboratory Results - last 24 hr 11/17/16 11/17/16 04:47 04:47 WBC 9.2 RBC 3.74 L Hgb 11.5 L D Hct 34.3 L MCV 91.7 MCH 31 MCHC 33.5 RDW 13.2 Plt Count 178 MPV 10.1 Neut % (Auto) 61.7 Lymph % (Auto) 16.2 L Luna % (Auto) 15.3 H Eos % (Auto) 5.1 Baso % (Auto) 0.9 H Neut # (Auto) 5.7 Lymph # (Auto) 1.5 Luna # (Auto) 1.4 H Eos # (Auto) 0.5 Baso # (Auto) 0.1 Immature Gran % 0.8 Nucleated RBC % 0.0 Immature Gran # 0.07 Nucleated RBCs # 0.00 Sodium 137 Potassium 3.5 Chloride 97 L Carbon Dioxide 32 Anion Gap 11.5 BUN 21 H Creatinine 1.00 GFR Calculation 49 BUN/Creatinine Ratio 21.00 H Glucose 105 Calculated Osmolality 275.8 Calcium 7.6 L Magnesium 1.9 - Diagnostic Findings Procedure: Chest x-ray: image reviewed by me, report reviewed by me - EKG EKG results: interpreted by me, no acute changes EKG shows: atrial fibrillation Quality Measures - VTE Contraindication to Pharmacological VTE Prophylaxis: Clinical assessment deems Pt at low risk, no prophalaxis needed Yuli Cameron Michael, MD, personally performed the services described in this documentation, ascribed by Sidra Raya RN in my presence, and it is both accurate and complete 238 .
--- NOTE | 2016-11-17 15:29 | CT Report ---
CT abdomen pelvis w con Indication: Diverticulitis. Diverticular abscess drained percutaneously. CT ABDOMEN AND PELVIS WITH CONTRAST DLP: 900 mGy*cm. One or more of the following dose reduction techniques was used: Automated exposure control, adjustment of the mA and/or kV according the patient size, or use of iterative reconstruction techniques. Comparison: 11/12/2016 Technique: Axial CT images of the abdomen and pelvis were obtained with IV contrast; Omnipaque 350, 100 cc. Oral contrast was administered. Abdomen: Tiny right pleural effusion has developed. Mild cardiomegaly is more pronounced as well and there is minimal interstitial prominence of peripheral lungs concerning for mild fluid overload. IVC is prominently distended as are the hepatic veins. Liver is diffusely hypodense. Gallbladder is distended. Urinary bladder is unremarkable. Cystic changes to the kidneys are stable. Fatty atrophy of the pancreas, left adrenal thickening and normal-appearing right adrenal gland are unchanged. No bowel obstruction. Pelvis: There continues drain adjacent to the rectosigmoid colon has completely evacuated the abscess. There is no residual fluid present. The drain remains external to lumen of the colon. Extensive diverticulosis of the colon is present with decreased inflammation of the distal segments. Urinary bladder is unremarkable. Uterus is absent. Impression: 1. No residual fluid in the pelvis following percutaneous drainage of diverticular abscess. 2. Miniscule right pleural effusion has now developed. Additional findings of potential CHF noted including venous congestion in the IVC and liver, cardiomegaly and mild interstitial prominence of the peripheral lungs. 3. Distention of the gallbladder. PROCEDURE INTERPRETED AT [facility] DEPARTMENT OF RADIOLOGY Final Report Signed by: Jairo Ledezma M.D.
--- NOTE | 2016-11-17 15:56 | Hospitalist Progress Note ---
Assessment and Plan (1) Diverticulitis Status: Acute Assessment and plan: with abscess: s/p percutaneous drain.Abscess grew E. Coli. BC- no growth so far. Repeat CT abd plevis showed no residual fluid in the pelvis following percutaneous drainage of diverticular abscess.Miniscule right pleural effusion has now developed. Additional findings of potential CHF noted including venous congestion in the IVC and liver, cardiomegaly and mild interstitial prominence of the peripheral lungs. Plan Continue with IV antibiotics- sensitive to Cefepime, will consider dcing Flagyl Continue with IV Lasix Current Visit: Yes (2) Hypokalemia Status: Acute Assessment and plan: improved Current Visit: Yes (3) CHF (congestive heart failure) Status: Acute Assessment and plan: CT showed Miniscule right pleural effusion has now developed. Additional findings of potential CHF noted including venous congestion in the IVC and liver, cardiomegaly and mild interstitial prominence of the peripheral lungs. Plan Continue with IV Lasix DC IVF Follow previous Echo report Current Visit: Yes (4) Atrial fibrillation Status: Chronic Assessment and plan: Pt. has afib and needs to be anticoagulated. Rate is controlled.Anticoagulation has been held due to drain being placed. Will restart when we have ok from surgery. Current Visit: Yes Qualifiers: Atrial fibrillation type: persistent Qualified Code(s): I48.1 - Persistent atrial fibrillation (5) Hypothyroidism Status: Chronic Assessment and plan: will resume home meds Current Visit: Yes (6) GERD (gastroesophageal reflux disease) Status: Inactive Assessment and plan: resume home meds Current Visit: Yes Hospitalist: Subjective Interval history: Patient seen this am. She feels about the same but she experienced a bad nausea during the night. Exam - Constitutional Vitals: Period Temp Pulse Resp BP Sys/Conroy Pulse Ox Last 24 Hr 97.1 F-98.2 F 68-78 18-20 109-143/67-76 97-98 General appearance: no acute distress - Head Head exam: Present: normal inspection - Respiratory Respiratory exam: Present: clear to auscultation bilaterally - Cardiovascular Cardiovascular exam: Present: regular rate and rhythm - GI/Abdominal GI/Abdominal exam: Present: normal bowel sounds, other (drain in place, draining minimal bloody fluid) - Extremities Exam Extremities exam: Present: normal inspection - Neurological Exam Neurological exam: Present: alert, oriented X3 Results - Labs CBC & BMP: 06/19/17 04:47 11/17/16 04:47 Lab Results: I have reviewed the past 24 hour labs Quality Measures - VTE Contraindication to Pharmacological VTE Prophylaxis: Clinical assessment deems Pt at low risk, no prophalaxis needed
[2016-11-17] MEDS: GABAPENTIN 300 MG CAPSULE PO SCH (20:54)
[2016-11-17] MEDS: MONTELUKAST 10 MG TABLET PO SCH (20:54)
[2016-11-17] MEDS: PANTOPRAZOLE 40 MG TABLET PO SCH (20:54)
[2016-11-17] MEDS: MORPHINE 2 MG/1 ML SYRINGE IV PRN (20:55)
[2016-11-17] MEDS: CIPROFLOXACIN 0.3% OPH SOLN 2.5 ML BOTTLE LEFT EYE SCH (21:44)
[2016-11-18] MEDS: CEFEPIME 2,000 MG in SODIUM CHLORIDE 0.9% 100 ML IV SCH ×2 (04:02→15:39)
[2016-11-18 06:19] LABS: Basophils # 0.1 10*3/uL (0.0-0.2); Basophils % 0.6 % (0.0-0.8); Eosinophils # 0.3 10*3/uL (0.0-0.87); Eosinophils % 1.9 % (0.00-10.9); Hematocrit 38.7 VOL% (35.7-47.0); Hemoglobin 13.4 GM/DL (12.0-16.0); Immature Granulocytes % 0.7 %; Immature Granulocytes Absolute 0.09 #; Lymphocytes # 1.5 10*3/uL (1.4-4.0); Lymphocytes % 10.7 % (21.3-54.2); Mean Corpuscular HGB Conc 34.6 GM/DL (32-36); Mean Corpuscular Hemoglobin 31 PG (27-34); Mean Corpuscular Volume 89.2 FL (87-102); Mean Platelet Volume 10.1 FL (9.6-12.0); Monocytes # 1.8 10*3/uL (0.11-0.8); Monocytes % 12.7 % (1.7-12.7); Neutrophils # 10.2 10*3/uL (1.4-7.4); Neutrophils % 73.4 % (38.7-73.9); Red Blood Count 4.34 MC/CUMM (3.8-5.5); Red Cell Distribution Width 13.1 % (9.3-17.3)
[2016-11-18 06:21] LABS: Platelet Count 235 T/CUMM (130-400); White Blood Count 13.8 T/CUMM (4-12)
[2016-11-18 06:41] LABS: Calcium 7.7 MG/DL (8.5-10.1); Osmolality,Calculated 268.4 MOS/KG (273-304); Potassium 2.9 MMOL/L (3.5-5.1)
--- NOTE | 2016-11-18 08:03 | Gastrointestinal Progress Note ---
Assessment and Plan (1) Diverticulitis of large intestine with abscess without bleeding Status: Acute Assessment and plan: The patient is having diverticulitis of her sigmoid colon with abscess formation , this will likely require percutaneous drain if not surgery. She is being treated with metronidazole and cefepime and will continue to monitor her white blood cell count to see if this improves spontaneously. She may need repeat colonoscopy to rule out colon cancer but this is unlikely given the fact that she had previous colonoscopy done by Dr. Mcallister back in November 2009. This will need to be down the road at least a month or 2. She does have prior history of polyps and so recheck may be helpful at this point. Given the patient's age I had not planned on looking again but given this recent development will make arrangements to recheck as an outpatient. 11/13/16--white blood cell count has gone from 15.5 down to 12.0 with antibiotic therapy for her underlying diverticulitis/sigmoid abscess. She is due to get a percutaneous drain today. I suspect this will need to be in for approximately 2 weeks to 4 weeks. No other recommendations at this time aside from continuing antibiotics. 11/14/16--Percutaneous drain placed by Dr. Ledezma and has put out some 80 mL of serosanguineous pus--in my discussions with Dr. Brower concerning what will happen with a strain he suggests waiting until early next week and doing an abscess cavity contrast study to see how much remains and then possible discharge although he states that this abscess can take weeks to improve. 11/15/16--Awaiting Thursday for recheck on relative size of abscess cavity. Otherwise this patient can certainly be discharged home to follow-up with interventional radiology and they feel that her next cavity check is due. Discussed with surgery indicated that if the patient is doing well she may be able to go home without the tube. 11/16/16--As noted above. The output from the drain is down from 5 mL per shift to 0 with the last shift. The patient can certainly be restarted on her Eliquis at this time from my standpoint, await above tests. 11/17/16--The drain has not put out any significant fluid over the last 24 hours. Likely the patient will have this pulled either today or tomorrow when they go for the "abscessogram". She is not having any significant pain. I suspect that the surgeon may recommend that this be pulled before she goes home. White count is down to 9 this morning. Overall I think she is doing very well. 11/18/16--No further fluid out of the drain, and CT scan done yesterday shows complete resolution of the abscess pocket with drain in place surrounding the colon. Likely at this point the tube could be pulled however there does appear to be an elevation patient's white blood cell count from 9.2 yesterday up to 13.8 today of unclear significance. Removal of tube may be delayed or antibiotics adjusted or the patient taken to surgery or continued observation as per recommendations from surgery. Current Visit: Yes (2) Gastritis Status: Acute Assessment and plan: Patient is being controlled for this condition on Nexium. She finds her self on Eliquis now but is doing adequately concerning the previous anemia that she had had back during her prior bleed. We will continue to watch her and see if she develops symptoms again and observe for melena. 11/13/16--continue to observe her further melena and anemia 11/14/16--No further issues with the gastritis, although patient has very little appetite. 11/15/16--No other issues noted. 11/16/16--Eating adequately at this point. From my standpoint she could certainly restart her Eliquis. 11/17/16--No complaints. Food being tolerated well. Patient on a low residue diet. 11/18/16--as noted above. Current Visit: Yes Gastroenterology - PN: Subj Interval history: Patient's feeling about the same, no abdominal pain although she is complaining of pain in her right lower leg. CT scan reviewed done yesterday demonstrates no further fluid in the pelvis surrounding the colon. The drain may be able to be pulled today as the drain is not putting out any further fluid. Her white blood cell count is higher however. Exam (Progress Note) - Constitutional Vitals: Period Temp Pulse Resp BP Sys/Conroy Pulse Ox Last 24 Hr 97.4 F-98.6 F 75-87 18-20 109-156/67-90 97-100 General appearance: mild distress (Mostly in association with right lower leg pain) - Head Head exam: Present: normocephalic - Eye Eye exam: Present: EOMI - Respiratory Respiratory exam: Present: clear to auscultation bilaterally - Cardiovascular Cardiovascular exam: Present: regular rate and rhythm - GI/Abdominal GI/Abdominal exam: Present: normal bowel sounds, soft. Absent: distended, guarding, psoas sign, tenderness, rebound - Extremities Exam Extremities exam: Absent: edema - Neurological Exam Neurological exam: Present: alert, oriented X3. Absent: motor sensory deficit - Psychiatric Psychiatric exam: Absent: normal affect, normal mood - Skin Skin exam: Present: warm Results - Labs CBC & BMP: 11/18/16 04:39 11/18/16 04:39
[2016-11-18] MEDS: CARVEDILOL 3.125 MG TABLET PO SCH ×2 (08:31→21:15)
[2016-11-18] MEDS: GABAPENTIN 300 MG CAPSULE PO SCH ×3 (08:31→21:15)
[2016-11-18] MEDS: PANTOPRAZOLE 40 MG VIAL IV SCH (08:32)
[2016-11-18] MEDS: THYROID 60 MG TABLET PO SCH (08:32)
[2016-11-18] MEDS: CIPROFLOXACIN 0.3% OPH SOLN 2.5 ML BOTTLE LEFT EYE SCH ×2 (08:32→23:12)
[2016-11-18] MEDS: FUROSEMIDE 20 MG/2 ML VIAL IV SCH ×2 (08:36→15:39)
[2016-11-18] MEDS: POTASSIUM CHLORIDE 20 MEQ TABLET PO PRN ×3 (08:46→12:30)
--- NOTE | 2016-11-18 11:55 | ECHO Report ---
Pratima Alatorre Exam Date: 11/18/2016 09:12 Referring Physician: Technologist: deep Sheriff ARDMS, RVT Age: 89 Ht (in): 63 Wt (lb): 150 Gender: F Exam Location: [facility] Echo Indications: Essential (primary) hypertension, Atrial fibrillation, Hypokalemia, Hypothyroidism, Chronic anticoagulation, GERD, CHF BP: 133 / 90 HR: 82 Rhythm: Sinus Technical Quality: average IMPRESSIONS Left ventricular ejection fraction is estimated at 60 %. Diastolic parameters are equivocal the patient in atrial fibrillation Tricuspid regurgitation velocities suggest a RVSP of 35 mmHg plus the right atrial pressure. Mild-moderate mitral valve regurgitation. Three chamber cardiac enlargement MEASUREMENTS (Male / Female) Normal Values 2D ECHO LV Diastolic Diameter PLAX 5.1 cm 4.2 - 5.9 / 3.9 - 5.3 cm LV Systolic Diameter PLAX 2.5 cm LV Fractional Shortening PLAX 51.5 % IVS Diastolic Thickness 0.5 cm 0.6 - 1.0 / 0.6 - 0.9 cm LVPW Diastolic Thickness 0.9 cm 0.6 - 1.0 / 0.6 - 0.9 cm RV Internal Dim ED PLAX 3.5 cm Aortic Root Diameter 2.2 cm LA Systolic Diameter LX 4.5 cm 3.0 - 4.0 / 2.7 - 3.8 cm DOPPLER TR Peak Velocity 309.0 cm/s TR Peak Gradient 38.2 mmHg FINDINGS Left Ventricle Normal left ventricular cavity size. Normal left ventricular wall thickness. Left ventricular ejection fraction is estimated at 60 %. Diastolic parameters are equivocal the patient in atrial fibrillation Right Ventricle Increased right ventricular size. Right Atrium The right atrium is mildly enlarged. Left Atrium Moderately increased left atrial size. Mitral Valve Mitral valve sclerosis. Mild-moderate mitral valve regurgitation. Aortic Valve Aortic valve sclerosis without stenosis or regurgitation. Tricuspid Valve Mild tricuspid valve regurgitation. Thickened tricuspid valve. Tricuspid regurgitation velocities suggest a RVSP of 35 mmHg plus the right atrial pressure. Pulmonic Valve Morphologically normal pulmonic valve. Trace pulmonary valve regurgitation. Pericardium Normal pericardium without effusion. Aorta Normal ascending aorta dimension. Missy Tobar (Electronically Signed) Final Date: 18 November 2016 11:54
--- NOTE | 2016-11-18 12:41 | General Surgery Progress Note ---
Assessment and Plan (1) Diverticulitis Status: Acute Assessment and plan: She feels much better. She has had gradual improvement in her abdominal pannus and is up ambulating. She is afebrile. Continue with antibiotics and drainage. 11/15: She continues to improve and feels better. I would like to continue with the drainage for several more days and we will continue the IV antibiotics during that time. 11/16: She appears to be responding to antibiotics and drainage. Her abdomen feels better. We will continue drainage and antibiotics for now and may look at repeat imaging in the next day or 2. 11/17: She feels like she is failed to progress over the last couple of days. She is complaining of nausea today but is eating. She is not having fever and her white blood cell count is come down. She still is at risk for residual abscess. We will get follow-up imaging with CT scan today. 11/18: She feels well and her follow-up CT did not show any abscess. Her white blood cell count has been moderately elevated but she is afebrile and her abdomen is completely benign at this point. I think she should be close to being ready for discharge. I do not see anything on her CT scan to explain her elevated white blood cell count. Current Visit: Yes Subjective Patient reports: Present: feels better. Absent: still having pain, nausea, vomiting, fever Exam - Constitutional Vitals: Period Temp Pulse Resp BP Sys/Conroy Pulse Ox Last 24 Hr 97.4 F-98.6 F 75-87 18-20 113-156/71-90 96-100 General appearance: no acute distress - Respiratory Respiratory exam: Absent: accessory muscle use - GI/Abdominal GI/Abdominal exam: Present: soft. Absent: distended, tenderness Results - Labs CBC & BMP: 11/18/16 04:39 11/18/16 04:39 Lab Results: I have reviewed the past 24 hour labs Quality Measures - VTE Contraindication to Pharmacological VTE Prophylaxis: Clinical assessment deems Pt at low risk, no prophalaxis needed Specialty Discharge - Follow Up or Referrals Follow up with: Sukh Suarez Jr., MD [Physician] - 2 Weeks
--- NOTE | 2016-11-18 14:51 | Hospitalist Progress Note ---
Assessment and Plan (1) Diverticulitis Status: Acute Assessment and plan: with abscess: s/p percutaneous drain.Abscess grew E. Coli. BC- no growth so far. Repeat CT abd plevis showed no residual fluid in the pelvis following percutaneous drainage of diverticular abscess.Miniscule right pleural effusion has now developed. Additional findings of potential CHF noted including venous congestion in the IVC and liver, cardiomegaly and mild interstitial prominence of the peripheral lungs. Plan Continue with IV antibiotics- sensitive to Cefepime, drain and surgery's recommendations. Current Visit: Yes (2) Hypokalemia Status: Acute Assessment and plan: improved Current Visit: Yes (3) CHF (congestive heart failure) Status: Acute Assessment and plan: CT showed Miniscule right pleural effusion has now developed. Additional findings of potential CHF noted including venous congestion in the IVC and liver, cardiomegaly and mild interstitial prominence of the peripheral lungs.Echo showed Left ventricular ejection fraction is estimated at 60 %. Diastolic parameters are equivocal the patient in atrial fibrillation Plan Continue with IV Lasix resume anticoagulation Current Visit: Yes (4) Atrial fibrillation Status: Chronic Assessment and plan: will resume anticoagulation Current Visit: Yes Qualifiers: Atrial fibrillation type: persistent Qualified Code(s): I48.1 - Persistent atrial fibrillation (5) Hypothyroidism Status: Chronic Assessment and plan: continue with home meds Current Visit: Yes (6) GERD (gastroesophageal reflux disease) Status: Inactive Assessment and plan: resume home meds Current Visit: Yes Hospitalist: Subjective Interval history: Patient states no new complaints, she feels about the same. Echo showed Left ventricular ejection fraction is estimated at 60 %. Diastolic parameters are equivocal the patient in atrial fibrillation Exam - Constitutional Vitals: Period Temp Pulse Resp BP Sys/Conroy Pulse Ox Last 24 Hr 97.4 F-98.6 F 75-87 18-20 113-156/71-90 96-100 General appearance: no acute distress - Head Head exam: Present: normal inspection - Respiratory Respiratory exam: Present: clear to auscultation bilaterally - Cardiovascular Cardiovascular exam: Present: regular rate and rhythm - GI/Abdominal GI/Abdominal exam: Present: normal bowel sounds, other (drain in place around the buttock area) - Extremities Exam Extremities exam: Present: normal inspection - Neurological Exam Neurological exam: Present: alert, oriented X3 Results - Labs CBC & BMP: 11/18/16 04:39 11/18/16 04:39 Lab Results: I have reviewed the past 24 hour labs Quality Measures - VTE Contraindication to Pharmacological VTE Prophylaxis: Clinical assessment deems Pt at low risk, no prophalaxis needed Specialty Discharge - Follow Up or Referrals Follow up with: Sukh Suarez Jr., MD [Physician] - 2 Weeks
[2016-11-18] MEDS ORDERED: POTASSIUM CHLORIDE 20 MEQ TABLET PO ONE (16:40)
--- NOTE | 2016-11-18 16:40 | Cardiology Progress Note ---
Elver Cameron Vanessa, RN, am scribing for, and in the presence of, Andrea Roldan MD 16:40. Assessment and Plan - Time spent with patient Time spent with patient: Greater than 30 minutes (1) Atrial fibrillation Status: Chronic Assessment and plan: Ventricular response are well maintained with low-dose beta-nicholas. Chronically anticoagulated with Eliquis for stroke prevention. Anticoagulant needs to be resumed once it is okay from surgical standpoint. Current Visit: Yes Qualifiers: Atrial fibrillation type: persistent Qualified Code(s): I48.1 - Persistent atrial fibrillation (2) Chronic anticoagulation Status: Chronic Assessment and plan: Eliquis for stroke prevention of chronic atrial fibrillation. This will need to be resumed when possible. Current Visit: Yes (3) Diverticulitis Status: Acute Assessment and plan: This is being managed per surgical services. Patient is now status post drain placement on November 14. Symptoms have improved. CT scan of abdomen and pelvis yesterday showed no residual abscess status post percutaneous drainage. Current Visit: Yes (4) Hx of heart failure Status: Chronic Assessment and plan: This was due to diastolic dysfunction in 2013 during new onset atrial fibrillation, but she has remained well compensated since that time. Previous echo with normal systolic function and LV ejection fraction is 55%. Echocardiogram is being obtained this morning and CT of abdomen yesterday showed some venous congestion of IVC and liver, interstitial prominence of the lungs, and there is concern for possible CHF. Current Visit: Yes (5) Hypertension Status: Chronic Assessment and plan: Blood pressure has been well controlled. Continue current medication regimen. Current Visit: Yes (6) Hypothyroidism Status: Chronic Assessment and plan: Chronic. Current Visit: Yes (7) GERD (gastroesophageal reflux disease) Status: Inactive Assessment and plan: PPI continued. Current Visit: Yes Cardiology - PN: Subj Interval history: PRIMARY ADVERTISING SPECIALIST: DR. HARRISON SUMMARY: Ms. Alatorre is an 89-year-old white female with risk factors including age, hypertension, family history of CAD. Past medical history includes chronic atrial fibrillation, hypothyroidism, GI bleeding. Patient is chronically anticoagulated with Eliquis. Patient was admitted to the hospital on November 12 with rectal pain, and subsequently found to have diverticulitis with abscess. Per surgical services, patient has now had a drain placed. Her symptoms are improving. Cardiology was asked to see as patient has history of atrial fibrillation and requires chronic anticoagulation. October UPDATE: Ms. Alatorre is awake and pleasant this morning. No cardiac complaint. Does report some discomfort of right lower extremity. CT scan of abdomen and pelvis yesterday to evaluate diverticular abscess showed no residual fluid in the pelvis status post percutaneous drainage of abscess. CT also noted development of a moderate right pleural effusion, and venous congestion of the IVC and liver , cardiomegaly, and interstitial prominence of lungs. Echocardiogram has now been ordered to evaluate for potential of CHF. We will review this. Systolic BP 115-135 mmHg. Labs reviewed. WBC elevated today from 9200 to 13,800. H&H stable. Significant hypokalemia with K+ 2.9. Received 20 meq by mouth earlier as ordered per PRN protocol. Magnesium yesterday 1.9. Noted that her culture of her abscess was positive for E. coli. Current Medications Albuterol/Ipratropium (Duoneb) 3 ml RESP TX RT Q4H PRN PRN Reason: Shortness of Breath/Wheezing Carvedilol (Coreg) 3.125 mg PO BID [facility] Last Admin: 11/18/16 08:31 Dose: 3.125 mg Ciprofloxacin (Ciloxan Oph Soln) 1 drop LEFT EYE BID [facility] Last Admin: 11/18/16 08:32 Dose: 1 drop Furosemide (Lasix Inj) 20 mg IV BID DIURETIC [facility] Last Admin: 11/18/16 08:36 Dose: 20 mg Gabapentin (Neurontin Cap/Tab) 300 mg PO TID [facility] Last Admin: 11/18/16 08:31 Dose: 300 mg Magnesium Sulfate 2 gm/ Premix 50 mls @ 25 mls/hr IV .PER PROTOCOL PRN; Protocol PRN Reason: Per Protocol Last Infusion: 11/13/16 10:38 Dose: Infused Magnesium Sulfate 4 gm/ Premix 100 mls @ 25 mls/hr IV .PER PROTOCOL PRN; Protocol PRN Reason: Per Protocol Cefepime HCl 2,000 mg/ Sodium (Chloride) 100 mls @ 200 mls/hr IV Q12H [facility] Last Admin: 11/18/16 04:02 Dose: 75 mls/hr Montelukast Sodium (Singulair Tab) 10 mg PO BEDTIME [facility] Last Admin: 11/17/16 20:54 Dose: 10 mg Morphine Sulfate () 2 mg IV Q4H PRN PRN Reason: Pain Severe (8-10) Last Admin: 11/17/16 20:55 Dose: 2 mg Ondansetron HCl (Zofran Inj) 4 mg IV Q4H PRN PRN Reason: Nausea Last Admin: 11/17/16 14:39 Dose: 4 mg Pantoprazole Sodium (Protonix Inj) 40 mg IV DAILY [facility] Last Admin: 11/18/16 08:32 Dose: 40 mg Pantoprazole Sodium (Protonix Tab) 40 mg PO BEDTIME [facility] Last Admin: 11/17/16 20:54 Dose: 40 mg Potassium Chloride (K Dur) 20 meq PO .PER PROTOCOL PRN; Protocol PRN Reason: Per Protocol Last Admin: 11/18/16 08:46 Dose: 20 meq Temazepam (Restoril) 7.5 mg PO BEDTIME PRN PRN Reason: Sleep Thyroid ([place] Thyroid) 90 mg PO QAM [facility] Last Admin: 11/18/16 08:32 Dose: 90 mg Tramadol HCl (Ultram) 50 mg PO Q6H PRN PRN Reason: Pain Last Admin: 11/15/16 12:59 Dose: 50 mg Exam (Progress Note) - Constitutional Vitals: Period Temp Pulse Resp BP Sys/Conroy Pulse Ox Last 24 Hr 97.4 F-98.6 F 75-87 18-20 109-156/67-90 97-100 Exam: General: Present: No Distress HEENT: Present: PERRL, Normocephaly . Absent: Pallor Neck: Present: Supple Neck, Midline Trachea, No JVD/HJR, No Masses, No Bruit Cardiac: Present: Irregularly Regular. No murmur. Absent: Tachycardia, Bradycardia Lungs: Present: Clear on auscultation. No Wheeze, Rales, Rhonchi. Absent: Oxygen Neuro: Present: Grossly Intact. She is alert and oriented. Abdomen: Present: Soft, Active Bowel Sounds, No Masses, No Pulsations/Bruits. Absent: Ascites, Tender, Firm, Distended. Other: Percutaneous drain left pelvic area. Skin: Warm and dry. Musculoskeletal: Present: No Fluid Collection Extremities: Present: No Clubbing, No Cyanosis, Normal Upper Extr. Pulses (3+ bilateral), Normal Lower Extr. Pulses (3+ bilaterally), no lower extremity edema. Result/EKG - Labs CBC & BMP: 11/18/16 04:39 11/18/16 04:39 Lab Results: I have reviewed the past 24 hour labs Labs: Laboratory Results - last 24 hr 11/18/16 11/18/16 04:39 04:39 WBC 13.8 H D RBC 4.34 Hgb 13.4 Hct 38.7 MCV 89.2 MCH 31 MCHC 34.6 RDW 13.1 Plt Count 235 D MPV 10.1 Neut % (Auto) 73.4 Lymph % (Auto) 10.7 L [place] % (Auto) 12.7 Eos % (Auto) 1.9 Baso % (Auto) 0.6 Neut # (Auto) 10.2 H Lymph # (Auto) 1.5 [place] # (Auto) 1.8 H Eos # (Auto) 0.3 Baso # (Auto) 0.1 Immature Gran % 0.7 Nucleated RBC % 0.0 Immature Gran # 0.09 Nucleated RBCs # 0.00 Sodium 133 L Potassium 2.9 L Chloride 91 L Carbon Dioxide 34 H Anion Gap 10.9 BUN 17 Creatinine 0.90 GFR Calculation 56 BUN/Creatinine Ratio 18.00 Glucose 110 H Calculated Osmolality 268.4 L Calcium 7.7 L - EKG EKG results: interpreted by me, no acute changes Quality Measures - VTE Contraindication to Pharmacological VTE Prophylaxis: Clinical assessment deems Pt at low risk, no prophalaxis needed Specialty Discharge - Follow Up or Referrals Follow up with: Sukh Suarez Jr., MD [Physician] - 2 Weeks I, Andrea Roldan MD, personally performed the services described in this documentation, ascribed by Sidra Raya RN in my presence, and it is both accurate and complete 640 .
[2016-11-18] MEDS: POTASSIUM CHLORIDE RIDER 10 MEQ in PREMIX 1 EACH IV SCH ×2 (17:28→21:04)
[2016-11-18] MEDS: MORPHINE 2 MG/1 ML SYRINGE IV PRN (20:09)
[2016-11-18] MEDS ORDERED: POTASSIUM CHLORIDE RIDER 10 MEQ in PREMIX 1 EACH IV SCH (20:40)
[2016-11-18] MEDS: APIXABAN 5 MG TABLET PO SCH (21:14)
[2016-11-18] MEDS: MONTELUKAST 10 MG TABLET PO SCH (21:15)
[2016-11-18] MEDS: PANTOPRAZOLE 40 MG TABLET PO SCH (21:25)
[2016-11-19] MEDS: CEFEPIME 2,000 MG in SODIUM CHLORIDE 0.9% 100 ML IV SCH ×2 (04:07→15:35)
[2016-11-19 06:45] LABS: Basophils # 0.1 10*3/uL (0.0-0.2); Basophils % 1.2 % (0.0-0.8); Eosinophils # 0.4 10*3/uL (0.0-0.87); Eosinophils % 4.6 % (0.00-10.9); Hematocrit 38.1 VOL% (35.7-47.0); Hemoglobin 12.9 GM/DL (12.0-16.0); Immature Granulocytes % 1.1 %; Lymphocytes # 1.3 10*3/uL (1.4-4.0); Lymphocytes % 14.3 % (21.3-54.2); Mean Corpuscular HGB Conc 33.9 GM/DL (32-36); Mean Corpuscular Hemoglobin 31 PG (27-34); Mean Corpuscular Volume 90.7 FL (87-102); Mean Platelet Volume 9.6 FL (9.6-12.0); Monocytes # 1.6 10*3/uL (0.11-0.8); Monocytes % 17.1 % (1.7-12.7); Neutrophils # 5.8 10*3/uL (1.4-7.4); Neutrophils % 61.7 % (38.7-73.9); Platelet Count 226 T/CUMM (130-400); Red Cell Distribution Width 13.2 % (9.3-17.3); White Blood Count 9.4 T/CUMM (4-12)
--- NOTE | 2016-11-19 07:04 | Gastrointestinal Progress Note ---
Assessment and Plan (1) Diverticulitis of large intestine with abscess without bleeding Status: Acute Assessment and plan: The patient is having diverticulitis of her sigmoid colon with abscess formation , this will likely require percutaneous drain if not surgery. She is being treated with metronidazole and cefepime and will continue to monitor her white blood cell count to see if this improves spontaneously. She may need repeat colonoscopy to rule out colon cancer but this is unlikely given the fact that she had previous colonoscopy done by Dr. Mcallister back in November 2009. This will need to be down the road at least a month or 2. She does have prior history of polyps and so recheck may be helpful at this point. Given the patient's age I had not planned on looking again but given this recent development will make arrangements to recheck as an outpatient. 11/13/16--white blood cell count has gone from 15.5 down to 12.0 with antibiotic therapy for her underlying diverticulitis/sigmoid abscess. She is due to get a percutaneous drain today. I suspect this will need to be in for approximately 2 weeks to 4 weeks. No other recommendations at this time aside from continuing antibiotics. 11/14/16--Percutaneous drain placed by Dr. Ledezma and has put out some 80 mL of serosanguineous pus--in my discussions with Dr. Brower concerning what will happen with a strain he suggests waiting until early next week and doing an abscess cavity contrast study to see how much remains and then possible discharge although he states that this abscess can take weeks to improve. 11/15/16--Awaiting Thursday for recheck on relative size of abscess cavity. Otherwise this patient can certainly be discharged home to follow-up with interventional radiology and they feel that her next cavity check is due. Discussed with surgery indicated that if the patient is doing well she may be able to go home without the tube. 11/16/16--As noted above. The output from the drain is down from 5 mL per shift to 0 with the last shift. The patient can certainly be restarted on her Eliquis at this time from my standpoint, await above tests. 11/17/16--The drain has not put out any significant fluid over the last 24 hours. Likely the patient will have this pulled either today or tomorrow when they go for the "abscessogram". She is not having any significant pain. I suspect that the surgeon may recommend that this be pulled before she goes home. White count is down to 9 this morning. Overall I think she is doing very well. 11/18/16--No further fluid out of the drain, and CT scan done yesterday shows complete resolution of the abscess pocket with drain in place surrounding the colon. Likely at this point the tube could be pulled however there does appear to be an elevation patient's white blood cell count from 9.2 yesterday up to 13.8 today of unclear significance. Removal of tube may be delayed or antibiotics adjusted or the patient taken to surgery or continued observation as per recommendations from surgery. 11/19/16--the patient's drain did end up putting out about 80 mL of fluid on 11/18 and does already put another 23 mL of fluid this morning documented. White blood cell count is back down to the 9.4 range after transiently increasing yesterday post CT scan. Patient is eating well could likely be transitioned over to oral antibiotics. Surgery may consider removal of the drain today as well. Current Visit: Yes (2) Gastritis Status: Acute Assessment and plan: Patient is being controlled for this condition on Nexium. She finds her self on Eliquis now but is doing adequately concerning the previous anemia that she had had back during her prior bleed. We will continue to watch her and see if she develops symptoms again and observe for melena. 11/13/16--continue to observe her further melena and anemia 11/14/16--No further issues with the gastritis, although patient has very little appetite. 11/15/16--No other issues noted. 11/16/16--Eating adequately at this point. From my standpoint she could certainly restart her Eliquis. 11/17/16--No complaints. Food being tolerated well. Patient on a low residue diet. 11/18/16--as noted above. 11/19/16--No changes Current Visit: Yes Gastroenterology - PN: Subj Interval history: After not putting out much the day prior, the drain put out 81 mL of fluid on and another 23 mL of fluid today (this will likely be up to 30 mL as there is more in the bag now). The white blood cell count is back down to its previous level, currently at 9.4. I suspect at this point she could probably be switched over to oral medications and depending on what surgery feels, the percutaneous drainage tube may be able to be removed today as well. She states "I am tired of this tube and I am tired of this cast (left forearm) ". Exam (Progress Note) - Constitutional Vitals: Period Temp Pulse Resp BP Sys/Conroy Pulse Ox Last 24 Hr 96.3 F-98.4 F 63-86 16-20 104-127/61-83 90-98 General appearance: no acute distress - Eye Eye exam: Present: EOMI Pupils: Present: YU - Respiratory Respiratory exam: Present: clear to auscultation bilaterally - Cardiovascular Cardiovascular exam: Present: regular rate and rhythm - GI/Abdominal GI/Abdominal exam: Present: normal bowel sounds, soft. Absent: distended, guarding, tenderness, rebound - Neurological Exam Neurological exam: Present: alert, oriented X3 - Psychiatric Psychiatric exam: Present: normal affect, normal mood - Skin Skin exam: Present: warm Results - Labs CBC & BMP: 11/19/16 05:54 11/18/16 04:39 Specialty Discharge - Follow Up or Referrals Follow up with: Sukh Suarez Jr., MD [Physician] - 2 Weeks
[2016-11-19 07:08] LABS: Band Neutrophils 3 % (0-10); Hypochromasia 1+; Lymphocytes 13 % (20-55); Segmented Neutrophils 68 % (50-85); Total Cells Counted 100
[2016-11-19 07:09] LABS: Microcytosis 1+; Platelet Estimate Normal
[2016-11-19] MEDS: GABAPENTIN 300 MG CAPSULE PO SCH ×3 (08:06→21:51)
[2016-11-19] MEDS: THYROID 60 MG TABLET PO SCH (08:07)
[2016-11-19] MEDS: APIXABAN 5 MG TABLET PO SCH ×2 (08:07→21:50)
[2016-11-19] MEDS: FUROSEMIDE 20 MG/2 ML VIAL IV SCH ×2 (08:07→15:35)
[2016-11-19] MEDS: PANTOPRAZOLE 40 MG VIAL IV SCH (08:07)
[2016-11-19] MEDS: CARVEDILOL 3.125 MG TABLET PO SCH ×2 (08:07→21:50)
[2016-11-19] MEDS: CIPROFLOXACIN 0.3% OPH SOLN 2.5 ML BOTTLE LEFT EYE SCH ×2 (08:10→21:48)
--- NOTE | 2016-11-19 10:39 | Cardiology Progress Note ---
Elver Cameron Vanessa, RN, am scribing for, and in the presence of, Andrea Roldan MD 10:39. Assessment and Plan - Time spent with patient Time spent with patient: Greater than 30 minutes (1) Atrial fibrillation Status: Chronic Assessment and plan: Ventricular response are well maintained with low-dose beta-nicholas. Chronically anticoagulated with Eliquis for stroke prevention. After speaking with Dr. Kam regarding patient care, we will be resuming Eliquis as it is ok from a surgical standpoint. Current Visit: Yes Qualifiers: Atrial fibrillation type: persistent Qualified Code(s): I48.1 - Persistent atrial fibrillation (2) Chronic anticoagulation Status: Chronic Assessment and plan: Eliquis for stroke prevention of chronic atrial fibrillation. Plan to restart anticoagulant today. Current Visit: Yes (3) Diverticulitis Status: Acute Assessment and plan: This is being managed per surgical services. Patient is now status post drain placement on November 14. Symptoms have improved. She has since had CT scan of abdomen and pelvis which showed no residual abscess status post percutaneous drain placement. Tentatively planned for drain removal today. Current Visit: Yes (4) Hx of heart failure Status: Chronic Assessment and plan: This was due to diastolic dysfunction in 2013 during new onset atrial fibrillation, but she has remained well compensated since that time. Recent CT of abdomen showed some venous congestion of IVC and liver, interstitial prominence of the lungs, and echocardiogram was obtained as there was some concern for possible CHF. Echocardiogram on November 18 is essentially unchanged from previous echocardiogram shows LV ejection fraction 60%, mild to moderate MR , and mild TR with RVSP 35 mmHg. Current Visit: Yes (5) Hypertension Status: Chronic Assessment and plan: Blood pressure is well controlled. Continue current medication regimen. Current Visit: Yes (6) Hypothyroidism Status: Chronic Assessment and plan: Chronic. Current Visit: Yes (7) GERD (gastroesophageal reflux disease) Status: Inactive Assessment and plan: PPI continued. Current Visit: Yes Cardiology - PN: Subj Interval history: PRIMARY BOW MACHINE OPERATOR: DR. HARRISON SUMMARY: Ms. Alatorre is an 89-year-old white female with risk factors including age, hypertension, family history of CAD. Past medical history includes chronic atrial fibrillation, hypothyroidism, GI bleeding. Patient is chronically anticoagulated with Eliquis. Patient was admitted to the hospital on November 12 with rectal pain, and subsequently found to have diverticulitis with abscess. Per surgical services, patient has now had a drain placed. Her symptoms are improving. Cardiology was asked to see as patient has history of atrial fibrillation and requires chronic anticoagulation. October UPDATE: Ms. Alatorre is resting comfortably this morning. She is awake, alert, and pleasant. No chest pain, shortness of breath. Her appetite is good.No abdominal pain, rectal pain, overt bleeding. Reports she is tentatively planned to have percutaneous drain removed later today. Afebrile, vitals stable with systolic BP 120s-140s. Labs reviewed and overall unremarkable. Current Medications Albuterol/Ipratropium (Duoneb) 3 ml RESP TX RT Q4H PRN PRN Reason: Shortness of Breath/Wheezing Apixaban (Eliquis) 2.5 mg PO BID [facility] Last Admin: 11/19/16 08:07 Dose: 2.5 mg Carvedilol (Coreg) 3.125 mg PO BID [facility] Last Admin: 11/19/16 08:07 Dose: 3.125 mg Ciprofloxacin (Ciloxan Oph Soln) 1 drop LEFT EYE BID [facility] Last Admin: 11/19/16 08:10 Dose: 1 drop Furosemide (Lasix Inj) 20 mg IV BID DIURETIC [facility] Last Admin: 11/19/16 08:07 Dose: 20 mg Gabapentin (Neurontin Cap/Tab) 300 mg PO TID [facility] Last Admin: 11/19/16 08:06 Dose: 300 mg Magnesium Sulfate 2 gm/ Premix 50 mls @ 25 mls/hr IV .PER PROTOCOL PRN; Protocol PRN Reason: Per Protocol Last Infusion: 11/13/16 10:38 Dose: Infused Magnesium Sulfate 4 gm/ Premix 100 mls @ 25 mls/hr IV .PER PROTOCOL PRN; Protocol PRN Reason: Per Protocol Cefepime HCl 2,000 mg/ Sodium (Chloride) 100 mls @ 200 mls/hr IV Q12H [facility] Last Infusion: 11/19/16 08:11 Dose: Infused Montelukast Sodium (Singulair Tab) 10 mg PO BEDTIME [facility] Last Admin: 11/18/16 21:15 Dose: 10 mg Morphine Sulfate () 2 mg IV Q4H PRN PRN Reason: Pain Severe (8-10) Last Admin: 11/18/16 20:09 Dose: 2 mg Ondansetron HCl (Zofran Inj) 4 mg IV Q4H PRN PRN Reason: Nausea Last Admin: 11/17/16 14:39 Dose: 4 mg Pantoprazole Sodium (Protonix Inj) 40 mg IV DAILY [facility] Last Admin: 11/19/16 08:07 Dose: 40 mg Pantoprazole Sodium (Protonix Tab) 40 mg PO BEDTIME [facility] Last Admin: 11/18/16 21:25 Dose: 40 mg Potassium Chloride (K Dur) 20 meq PO .PER PROTOCOL PRN; Protocol PRN Reason: Per Protocol Last Admin: 11/18/16 12:30 Dose: 20 meq Temazepam (Restoril) 7.5 mg PO BEDTIME PRN PRN Reason: Sleep Thyroid ([place] Thyroid) 90 mg PO QAM ANH Last Admin: 11/19/16 08:07 Dose: 90 mg Tramadol HCl (Ultram) 50 mg PO Q6H PRN PRN Reason: Pain Last Admin: 11/15/16 12:59 Dose: 50 mg Exam (Progress Note) - Constitutional Vitals: Period Temp Pulse Resp BP Sys/Conroy Pulse Ox Last 24 Hr 96.3 F-98.4 F 63-86 16-20 104-145/61-84 90-97 Exam: General: Present: No Distress HEENT: Present: PERRL, Normocephaly . Absent: Pallor Neck: Present: Supple Neck, Midline Trachea, No JVD/HJR, No Masses, No Bruit Cardiac: Present: Irregularly Regular. No murmur. Absent: Tachycardia, Bradycardia Lungs: Present: Clear on auscultation. No Wheeze, Rales, Rhonchi. Absent: Oxygen Neuro: Present: Grossly Intact. She is alert and oriented. Abdomen: Present: Soft, Active Bowel Sounds, No Masses, No Pulsations/Bruits. Absent: Ascites, Tender, Firm, Distended. Other: Percutaneous drain left pelvic area. Skin: Warm and dry. Musculoskeletal: Present: No Fluid Collection Extremities: Present: No Clubbing, No Cyanosis, Normal Upper Extr. Pulses (3+ bilateral), Normal Lower Extr. Pulses (3+ bilaterally), no lower extremity edema. Result/EKG - Labs CBC & BMP: 11/19/16 05:54 11/18/16 04:39 Lab Results: I have reviewed the past 24 hour labs Labs: Laboratory Results - last 24 hr 11/19/16 05:54 WBC 9.4 D RBC 4.20 Hgb 12.9 Hct 38.1 MCV 90.7 MCH 31 MCHC 33.9 RDW 13.2 Plt Count 226 MPV 9.6 Neut % (Auto) 61.7 Lymph % (Auto) 14.3 L [place] % (Auto) 17.1 H Eos % (Auto) 4.6 Baso % (Auto) 1.2 H Neut # (Auto) 5.8 Lymph # (Auto) 1.3 L [place] # (Auto) 1.6 H Eos # (Auto) 0.4 Baso # (Auto) 0.1 Total Counted 100 Immature Gran % 1.1 Nucleated RBC % 0.0 Immature Gran # 0.10 Segmented Neutrophils 68 Band Neutrophils 3 Lymphocytes 13 L Monocytes 16 H Nucleated RBCs # 0.00 Platelet Estimate Normal Hypochromasia 1+ Microcytosis 1+ - EKG EKG results: interpreted by me, no acute changes Quality Measures - VTE Contraindication to Pharmacological VTE Prophylaxis: Clinical assessment deems Pt at low risk, no prophalaxis needed Specialty Discharge - Follow Up or Referrals Follow up with: Sukh Suarez Jr., MD [Physician] - 2 Weeks I, Andrea Roldan MD, personally performed the services described in this documentation, ascribed by Sidra Raya RN in my presence, and it is both accurate and complete 039 .
[2016-11-19 11:30] LABS: Calcium 7.8 MG/DL (8.5-10.1); Magnesium 1.8 MG/DL (1.8-2.4)
[2016-11-19 11:31] LABS: Osmolality,Calculated 272.4 MOS/KG (273-304); Potassium 3.1 MMOL/L (3.5-5.1)
--- NOTE | 2016-11-19 12:43 | General Surgery Progress Note ---
Assessment and Plan (1) Diverticulitis Status: Acute Assessment and plan: She feels much better. She has had gradual improvement in her abdominal pannus and is up ambulating. She is afebrile. Continue with antibiotics and drainage. 11/15: She continues to improve and feels better. I would like to continue with the drainage for several more days and we will continue the IV antibiotics during that time. 11/16: She appears to be responding to antibiotics and drainage. Her abdomen feels better. We will continue drainage and antibiotics for now and may look at repeat imaging in the next day or 2. 11/17: She feels like she is failed to progress over the last couple of days. She is complaining of nausea today but is eating. She is not having fever and her white blood cell count is come down. She still is at risk for residual abscess. We will get follow-up imaging with CT scan today. 11/18: She feels well and her follow-up CT did not show any abscess. Her white blood cell count has been moderately elevated but she is afebrile and her abdomen is completely benign at this point. I think she should be close to being ready for discharge. I do not see anything on her CT scan to explain her elevated white blood cell count. 11/19: She feels much better and her abdomen is benign. She is having a bowel movement now. We can look at getting her drain out and I think she should be ready for discharge once okay from a medical standpoint. Current Visit: Yes Subjective Patient reports: Present: feels better, bowel movement. Absent: still having pain, nausea, vomiting, fever Exam - Constitutional Vitals: Period Temp Pulse Resp BP Sys/Conroy Pulse Ox Last 24 Hr 96.3 F-98.4 F 63-86 16-20 104-145/61-84 90-97 General appearance: no acute distress - Respiratory Respiratory exam: Absent: accessory muscle use - GI/Abdominal GI/Abdominal exam: Present: soft. Absent: distended, tenderness, rebound Results - Labs CBC & BMP: 11/19/16 05:54 11/19/16 10:41 Lab Results: I have reviewed the past 24 hour labs Quality Measures - VTE Contraindication to Pharmacological VTE Prophylaxis: Clinical assessment deems Pt at low risk, no prophalaxis needed Specialty Discharge - Follow Up or Referrals Follow up with: Sukh Suarez Jr., MD [Physician] - 2 Weeks
[2016-11-19] MEDS: POTASSIUM CHLORIDE 20 MEQ TABLET PO PRN (12:45)
--- NOTE | 2016-11-19 14:09 | Hospitalist Progress Note ---
Assessment and Plan (1) Diverticulitis Status: Acute Assessment and plan: with abscess: s/p percutaneous drain.Abscess grew E. Coli. BC- no growth so far. Repeat CT abd plevis showed no residual fluid in the pelvis following percutaneous drainage of diverticular abscess.Miniscule right pleural effusion has now developed. Additional findings of potential CHF noted including venous congestion in the IVC and liver, cardiomegaly and mild interstitial prominence of the peripheral lungs. Plan Continue with IV antibiotics- sensitive to Cefepime, drain and surgery's recommendations. Current Visit: Yes (2) Hypokalemia Status: Acute Assessment and plan: continue to replete BMP, Mg in am Current Visit: Yes (3) CHF (congestive heart failure) Status: Acute Assessment and plan: CT showed Miniscule right pleural effusion has now developed. Additional findings of potential CHF noted including venous congestion in the IVC and liver, cardiomegaly and mild interstitial prominence of the peripheral lungs.Echo showed Left ventricular ejection fraction is estimated at 60 %. Diastolic parameters are equivocal the patient in atrial fibrillation Plan Continue with IV Lasix and anticoagulation Current Visit: Yes (4) Atrial fibrillation Status: Chronic Assessment and plan: on anticoagulation Current Visit: Yes Qualifiers: Atrial fibrillation type: persistent Qualified Code(s): I48.1 - Persistent atrial fibrillation (5) Hypothyroidism Status: Chronic Assessment and plan: continue with home meds Current Visit: Yes (6) GERD (gastroesophageal reflux disease) Status: Inactive Assessment and plan: resume home meds Current Visit: Yes Hospitalist: Subjective Interval history: Patient is an 89yr old admitted for diverticulitis plus abscess s/p percutaneous drainage. She was re-started on her Eliquis yesterday for her A.Fib. This am, she feels ok but still hurting in her buttocks. Exam - Constitutional Vitals: Period Temp Pulse Resp BP Sys/Conroy Pulse Ox Last 24 Hr 96.3 F-98.4 F 63-86 16-20 104-145/61-84 90-97 General appearance: no acute distress - Head Head exam: Present: normal inspection - Respiratory Respiratory exam: Present: clear to auscultation bilaterally - GI/Abdominal GI/Abdominal exam: Present: normal bowel sounds, other (percutaneous drain in place) - Extremities Exam Extremities exam: Present: normal inspection - Neurological Exam Neurological exam: Present: alert, oriented X3 Results - Labs CBC & BMP: 11/19/16 05:54 11/19/16 10:41 Lab Results: I have reviewed the past 24 hour labs Quality Measures - VTE Contraindication to Pharmacological VTE Prophylaxis: Clinical assessment deems Pt at low risk, no prophalaxis needed Specialty Discharge - Follow Up or Referrals Follow up with: Sukh Suarez Jr., MD [Physician] - 2 Weeks
[2016-11-19] MEDS: POTASSIUM CHLORIDE 20 MEQ TABLET PO SCH ×2 (15:35→21:51)
[2016-11-19] MEDS: PANTOPRAZOLE 40 MG TABLET PO SCH (21:51)
[2016-11-19] MEDS: MONTELUKAST 10 MG TABLET PO SCH (21:51)
[2016-11-19] MEDS: HYDROCORTISONE 2.5% RECTAL CREAM 30 GM TUBE TOP PRN (22:10)
[2016-11-19] MEDS: DESITIN 4OZ/NYSTATIN 15 GRAM MIXTURE PASTE TOP SCH (22:11)
[2016-11-20] MEDS: CEFEPIME 2,000 MG in SODIUM CHLORIDE 0.9% 100 ML IV SCH (04:07)
[2016-11-20 06:23] LABS: Basophils # 0.1 10*3/uL (0.0-0.2); Basophils % 1.1 % (0.0-0.8); Eosinophils # 0.4 10*3/uL (0.0-0.87); Eosinophils % 5.7 % (0.00-10.9); Hematocrit 37.9 VOL% (35.7-47.0); Hemoglobin 12.6 GM/DL (12.0-16.0); Immature Granulocytes % 0.8 %; Immature Granulocytes Absolute 0.06 #; Lymphocytes # 1.6 10*3/uL (1.4-4.0); Lymphocytes % 22.7 % (21.3-54.2); Mean Corpuscular HGB Conc 33.2 GM/DL (32-36); Mean Corpuscular Hemoglobin 30 PG (27-34); Mean Corpuscular Volume 90.2 FL (87-102); Mean Platelet Volume 9.7 FL (9.6-12.0); Monocytes # 1.4 10*3/uL (0.11-0.8); Monocytes % 19.4 % (1.7-12.7); Neutrophils # 3.6 10*3/uL (1.4-7.4); Neutrophils % 50.3 % (38.7-73.9); Platelet Count 225 T/CUMM (130-400); Red Cell Distribution Width 13.5 % (9.3-17.3); White Blood Count 7.2 T/CUMM (4-12)
[2016-11-20 06:46] LABS: Eosinophils 5 % (0-10); Hypochromasia 1+; Lymphocytes 23 % (20-55); Microcytosis Slight; Platelet Estimate Normal; Segmented Neutrophils 50 % (50-85); Total Cells Counted 100
[2016-11-20 07:03] LABS: Calcium 8.2 MG/DL (8.5-10.1); Osmolality,Calculated 270.2 MOS/KG (273-304); Potassium 4.1 MMOL/L (3.5-5.1)
[2016-11-20] MEDS: THYROID 60 MG TABLET PO SCH (08:08)
[2016-11-20] MEDS: FUROSEMIDE 20 MG/2 ML VIAL IV SCH (08:08)
[2016-11-20] MEDS: APIXABAN 5 MG TABLET PO SCH (08:09)
[2016-11-20] MEDS: GABAPENTIN 300 MG CAPSULE PO SCH ×2 (08:09→14:13)
[2016-11-20] MEDS: CARVEDILOL 3.125 MG TABLET PO SCH (08:09)
[2016-11-20] MEDS: POTASSIUM CHLORIDE 20 MEQ TABLET PO SCH (08:09)
[2016-11-20] MEDS: DESITIN 4OZ/NYSTATIN 15 GRAM MIXTURE PASTE TOP SCH (08:12)
[2016-11-20] MEDS: PANTOPRAZOLE 40 MG VIAL IV SCH (08:12)
[2016-11-20] MEDS: CIPROFLOXACIN 0.3% OPH SOLN 2.5 ML BOTTLE LEFT EYE SCH (08:12)
[2016-11-20] MEDS: HYDROCORTISONE 2.5% RECTAL CREAM 30 GM TUBE TOP PRN (08:12)
--- NOTE | 2016-11-20 08:27 | Gastrointestinal Progress Note ---
Assessment and Plan (1) Diverticulitis of large intestine with abscess without bleeding Status: Acute Assessment and plan: The patient is having diverticulitis of her sigmoid colon with abscess formation , this will likely require percutaneous drain if not surgery. She is being treated with metronidazole and cefepime and will continue to monitor her white blood cell count to see if this improves spontaneously. She may need repeat colonoscopy to rule out colon cancer but this is unlikely given the fact that she had previous colonoscopy done by Dr. Mcallister back in November 2009. This will need to be down the road at least a month or 2. She does have prior history of polyps and so recheck may be helpful at this point. Given the patient's age I had not planned on looking again but given this recent development will make arrangements to recheck as an outpatient. 11/13/16--white blood cell count has gone from 15.5 down to 12.0 with antibiotic therapy for her underlying diverticulitis/sigmoid abscess. She is due to get a percutaneous drain today. I suspect this will need to be in for approximately 2 weeks to 4 weeks. No other recommendations at this time aside from continuing antibiotics. 11/14/16--Percutaneous drain placed by Dr. Ledezma and has put out some 80 mL of serosanguineous pus--in my discussions with Dr. Brower concerning what will happen with a strain he suggests waiting until early next week and doing an abscess cavity contrast study to see how much remains and then possible discharge although he states that this abscess can take weeks to improve. 11/15/16--Awaiting Thursday for recheck on relative size of abscess cavity. Otherwise this patient can certainly be discharged home to follow-up with interventional radiology and they feel that her next cavity check is due. Discussed with surgery indicated that if the patient is doing well she may be able to go home without the tube. 11/16/16--As noted above. The output from the drain is down from 5 mL per shift to 0 with the last shift. The patient can certainly be restarted on her Eliquis at this time from my standpoint, await above tests. 11/17/16--The drain has not put out any significant fluid over the last 24 hours. Likely the patient will have this pulled either today or tomorrow when they go for the "abscessogram". She is not having any significant pain. I suspect that the surgeon may recommend that this be pulled before she goes home. White count is down to 9 this morning. Overall I think she is doing very well. 11/18/16--No further fluid out of the drain, and CT scan done yesterday shows complete resolution of the abscess pocket with drain in place surrounding the colon. Likely at this point the tube could be pulled however there does appear to be an elevation patient's white blood cell count from 9.2 yesterday up to 13.8 today of unclear significance. Removal of tube may be delayed or antibiotics adjusted or the patient taken to surgery or continued observation as per recommendations from surgery. 11/19/16--the patient's drain did end up putting out about 80 mL of fluid on 11/18 and does already put another 23 mL of fluid this morning documented. White blood cell count is back down to the 9.4 range after transiently increasing yesterday post CT scan. Patient is eating well could likely be transitioned over to oral antibiotics. Surgery may consider removal of the drain today as well. 11/20/16--The patient's drain is been removed now and she is doing quite well. She can likely go home today. She may wish to have home health for strengthening at home. She will need follow-up in the GI suite in 4-8 weeks for repeat colonoscopy (off of Eliquis 3 days) Current Visit: Yes (2) Gastritis Status: Acute Assessment and plan: Patient is being controlled for this condition on Nexium. She finds her self on Eliquis now but is doing adequately concerning the previous anemia that she had had back during her prior bleed. We will continue to watch her and see if she develops symptoms again and observe for melena. 11/13/16--continue to observe her further melena and anemia 11/14/16--No further issues with the gastritis, although patient has very little appetite. 11/15/16--No other issues noted. 11/16/16--Eating adequately at this point. From my standpoint she could certainly restart her Eliquis. 11/17/16--No complaints. Food being tolerated well. Patient on a low residue diet. 11/18/16--as noted above. 11/19/16--No changes 11/20/16--Patient has proton pump inhibitors at home. Current Visit: Yes Gastroenterology - PN: Subj Interval history: Aside from the patient being weak from being flat her back for the last 7 days and with the drain present which is now been removed, she is actually doing quite well. White count shows further improvement over the evening time even after the drain was removed, she is eating well and ready for discharge. Exam (Progress Note) - Constitutional Vitals: Period Temp Pulse Resp BP Sys/Conroy Pulse Ox Last 24 Hr 97.0 F-98.9 F 70-82 18-20 107-151/65-88 93-97 General appearance: no acute distress - Eye Eye exam: Present: EOMI Pupils: Present: YU - Respiratory Respiratory exam: Present: clear to auscultation bilaterally - Cardiovascular Cardiovascular exam: Present: regular rate and rhythm - GI/Abdominal GI/Abdominal exam: Present: normal bowel sounds, soft. Absent: distended, guarding, tenderness, rebound - Extremities Exam Extremities exam: Present: edema (Trace in the upper lower extremities) - Neurological Exam Neurological exam: Present: alert, oriented X3 - Psychiatric Psychiatric exam: Present: normal affect, normal mood Results - Labs CBC & BMP: 11/20/16 06:04 11/20/16 06:04 Specialty Discharge - Follow Up or Referrals Follow up with: Sukh Suarez Jr., MD [Physician] - 2 Weeks
[2016-11-20 11:54] VITALS: BP 122/79
--- NOTE | 2016-11-20 12:19 | General Surgery Progress Note ---
Assessment and Plan (1) Diverticulitis of large intestine with abscess without bleeding Status: Acute Assessment and plan: 11/14/2016: Patient with percutaneous drain placed on 11/13/2016. Clinical improvement in her symptoms; leukocytosis has resolved. Moderate percutaneous drain output with approximately 80 cc 24 hours; gram-negative rods from abdominal abscess culture. Recommend continuing current IV antibiotics 9 cefepime and Flagyl) with clears diet; consider advancing diet tomorrow with continued clinical improvement. Patient is aware surgical intervention may be required if this conservative measure fails. 11/15: She continues to improve and feels better. I would like to continue with the drainage for several more days and we will continue the IV antibiotics during that time. 11/16: She appears to be responding to antibiotics and drainage. Her abdomen feels better. We will continue drainage and antibiotics for now and may look at repeat imaging in the next day or 2. 11/17: She feels like she is failed to progress over the last couple of days. She is complaining of nausea today but is eating. She is not having fever and her white blood cell count is come down. She still is at risk for residual abscess. We will get follow-up imaging with CT scan today. 11/18: She feels well and her follow-up CT did not show any abscess. Her white blood cell count has been moderately elevated but she is afebrile and her abdomen is completely benign at this point. I think she should be close to being ready for discharge. I do not see anything on her CT scan to explain her elevated white blood cell count. 11/19: She feels much better and her abdomen is benign. She is having a bowel movement now. We can look at getting her drain out and I think she should be ready for discharge once okay from a medical standpoint. 11/20: Feels improved. No abd pain. Drain has been d/c. Cultures: e.coli sensitive to cipro. Rec d/c on cipro x 7 days with low residue diet. and f/u with Dr. Wright 7-10 days. Pt stable for discharge from surgical standpoint. Current Visit: Yes Subjective Patient reports: Present: no new complaints (No complaints at time of my visit. ), feels better (Tolerating diet. Passing bowels without difficulty. ) Exam - Constitutional Vitals: Period Temp Pulse Resp BP Sys/Conroy Pulse Ox Last 24 Hr 97.0 F-98.9 F 67-82 18-20 107-151/65-88 67-97 General appearance: no acute distress - Eye Eye exam: Absent: conjunctival injection, scleral icterus - GI/Abdominal GI/Abdominal exam: Present: normal bowel sounds, soft. Absent: tenderness - Neurological Exam Neurological exam: Present: alert, oriented X3 Results - Labs CBC & BMP: 11/20/16 06:04 11/20/16 06:04 Quality Measures - VTE Contraindication to Pharmacological VTE Prophylaxis: Clinical assessment deems Pt at low risk, no prophalaxis needed Specialty Discharge - Follow Up or Referrals Follow up with: Sukh Suarez Jr., MD [Physician] - 2 Weeks
--- NOTE | 2016-11-20 12:55 | Discharge Summary ---
Hospital Course - Hospital Course Hospital Course: This is a very pleasant 89-year-old female that presented for the evaluation of rectal pain and abdominal distention. The patient has a very complex medical history significant for: Congestive heart failure, atrial fibrillation, hypertension, hypothyroidism, and diverticulitis. The patient reported the onset of symptoms 1 week prior to presentation. She described the rectal pain as a feeling of continuous "fullness" accompanied with abdominal distention. He denied fever, nausea, vomiting, rectal bleeding, chills, and flatulence. CT abdomen pelvis was obtained which reported a 5.6 x 3.4 cm thick walled fluid collection containing air within the left pelvis immediately adjacent to the sigmoid colon. There was extensive diverticulosis which most likely represented diverticulitis with perforation and abscess formation. The patient was admitted to hospitalist services for continuation of care. Eliquis was held. Surgery was consulted. A percutaneous drain was placed by interventional radiology on 11/13/16. Cardiology was consulted for assistance with patient's chronic atrial fibrillation, eliquis was restarted 11/19/16. Repeat CT with resolution of the CT. The percutaneous drain was removed 11/19/16. She has now reached maximal benefit of inpatient stay and will be discharged home. - Time spent with patient Time with patient DS: Greater than 30 minutes (40) Diagnosis - Discharge Diagnosis (1) Abscess Status: Resolved (2) Diverticulitis of large intestine with abscess without bleeding Status: Resolved (3) Atrial fibrillation Status: Chronic (4) Chronic anticoagulation Status: Chronic (5) Hypertension Status: Chronic (6) Hypothyroidism Status: Chronic Specialty Discharge - Follow Up or Referrals Follow up with: Miguel Ángel Wright MD [Physician] - 1 Week Sukh Suarez Jr., MD [Physician] - 12/04/16 2:15 pm Discharge Plan - Discharge Data Disposition: Disch To Home/Self Care Condition at Discharge: Stable Discharge Diet: heart healthy Activity: increase activity as tolerated Hygiene: no restrictions Weight Bearing at Discharge: weight bear as tolerated Contact your physician if you experience:: fever over 101, Shortness of breath, Bleeding - Discharge Medications New Temazepam [Restoril] 7.5 mg PO BEDTIME PRN #30 capsule PRN Reason: Sleep Continue Aspirin EC Tab 81 mg PO BEDTIME Tramadol HCl [Tramadol Tab] 50 mg PO Q6H PRN PRN Reason: Pain Esomeprazole Magnesium [Esomeprazole] 40 mg PO BEDTIME Montelukast Tab [Singulair Tab] 10 mg PO BEDTIME Potassium Chloride Cap/Tab [K Dur] 20 meq PO BID Gabapentin Cap/Tab [Neurontin Cap/Tab] 300 mg PO TID Apixaban [Eliquis] 2.5 mg PO BID Multivitamin [Multivitamins] 1 each PO QPM Calcium (Carb)/Vit D 600-400 [Caltrate 600 + D] 2 tablet PO BEDTIME Thyroid,Pork [[place] Thyroid] 90 mg PO QAM Carvedilol [Coreg] 3.125 mg PO BID prednisoLONE acetate [Prednisolone Acetate] 1 drop LEFT EYE BID Ketorolac Tromethamine [Ketorolac 0.5% Oph Soln] 1 drop LEFT EYE BID Ciprofloxacin HCl [Ciprofloxacin 0.3% Oph Soln] 1 drop LEFT EYE BID Discontinued Chlorthalidone 25 mg PO QAM No Action Furosemide Tab [Lasix Tab] 40 mg PO QAM - Follow Up or Referral Follow Up: Miguel Ángel Wright MD [Physician] - 1 Week Sukh Suarez Jr., MD [Physician] - 12/04/16 2:15 pm - Forms/Instructions Exam - Constitutional Vitals: Period Temp Pulse Resp BP Sys/Conroy Pulse Ox Last 24 Hr 97.0 F-98.9 F 67-82 18-20 107-151/65-88 67-97 General appearance: over weight - Head Head exam: Present: normocephalic, atraumatic - Eye Eye exam: Present: EOMI Pupils: Present: YU - ENT ENT exam: Present: normal exam - Neck Neck exam: Present: normal inspection - Respiratory Respiratory exam: Present: clear to auscultation bilaterally. Absent: rhonchi, wheezes - Cardiovascular Cardiovascular exam: Present: regular rate and rhythm - GI/Abdominal GI/Abdominal exam: Present: normal bowel sounds, soft. Absent: tenderness, rebound - Extremities Exam Extremities exam: Present: normal inspection - Back Exam Back exam: Present: normal inspection - Neurological Exam Neurological exam: Present: alert, oriented X3 - Psychiatric Psychiatric exam: Present: normal affect, normal mood - Skin Skin exam: Present: warm, intact Discharge Results Labs on day of discharge: Labs from last 24 hours 11/20/16 11/20/16 06:04 06:04 WBC 7.2 RBC 4.20 Hgb 12.6 Hct 37.9 MCV 90.2 MCH 30 MCHC 33.2 RDW 13.5 Plt Count 225 MPV 9.7 Neut % (Auto) 50.3 Lymph % (Auto) 22.7 Bacon % (Auto) 19.4 H Eos % (Auto) 5.7 Baso % (Auto) 1.1 H Neut # (Auto) 3.6 Lymph # (Auto) 1.6 Bacon # (Auto) 1.4 H Eos # (Auto) 0.4 Baso # (Auto) 0.1 Total Counted 100 Immature Gran % 0.8 Nucleated RBC % 0.0 Immature Gran # 0.06 Segmented Neutrophils 50 Lymphocytes 23 Monocytes 21 H Eosinophils 5 Basophils 1.0 H Nucleated RBCs # 0.00 Platelet Estimate Normal Hypochromasia 1+ Microcytosis Slight Sodium 134 L Potassium 4.1 Chloride 93 L Carbon Dioxide 31 Anion Gap 14.1 BUN 22 H Creatinine 1.00 GFR Calculation 49 BUN/Creatinine Ratio 22.00 H Glucose 99 Calculated Osmolality 270.2 L Calcium 8.2 L Magnesium 2.0 DS: Provider Date of admission: 11/12/16 12:39 Primary care physician: . No PCP Attending physician on admission: Afua Burnett MD Consults: 11/12/16 13:11 Consult to Physician [CONS] Routine Comment: Consulting Provider: Sukh Suarez Jr. When should Consulting Provider be notified: Now Person Notified: Kaylynn Date Notified: 11/12/16 Time Notified: 14:02 11/12/16 13:50 Consult to Physician [CONS] Routine Comment: Consulting Provider: Ousmane Frias When should Consulting Provider be notified: Now Person Notified: Jasmeet Date Notified: 11/12/16 Time Notified: 13:54 11/12/16 14:14 Consult to Physician [CONS] Routine Comment: Consulting Provider: Miguel Ángel Wright Person Notified: MD phillip Date Notified: 11/12/16 Time Notified: 14:15 11/13/16 11:26 Consult to Dietitian [CONS] Routine Reason for Dietitian: Other Consult Comment: Family request, states decreased appetite, doesnt eat well at home. 11/20/16 08:43 Consult to Physical Therapy [CONS] Routine Reason for Physical Therapy: Evaluate and Treat 11/20/16 11:45 Consult to Case Mgmt/Social Srvs [CONS] Routine Reason for Case Mgmt/Social Srvs: Home Health Consult Comment: with Physical therapy Discharging clinician: Dorina Roberts MD
--- NOTE | 2016-11-20 13:13 | Cardiology Progress Note ---
Elver Cameron Vanessa, RN, am scribing for, and in the presence of, Andrea Roldan MD 13:13. Assessment and Plan - Time spent with patient Time spent with patient: Greater than 30 minutes (1) Atrial fibrillation Status: Chronic Assessment and plan: Ventricular response are well maintained with low-dose beta-nicholas. Chronically anticoagulated with Eliquis for stroke prevention. Eliquis has now been resumed. Current Visit: Yes Qualifiers: Qualified Code(s): I48.1 - Persistent atrial fibrillation (2) Chronic anticoagulation Status: Chronic Assessment and plan: Eliquis for stroke prevention of chronic atrial fibrillation. Eliquis has been restarted. Current Visit: Yes (3) Diverticulitis Status: Acute Assessment and plan: This is being managed per surgical services. Patient is now status post drain placement on November 14. Symptoms have improved. She has since had CT scan of abdomen and pelvis which showed no residual abscess status post percutaneous drain placement. Status post drain removal yesterday. Current Visit: Yes (4) Hx of heart failure Status: Chronic Assessment and plan: This was due to diastolic dysfunction in 2013 during new onset atrial fibrillation, but she has remained well compensated since that time. Recent CT of abdomen showed some venous congestion of IVC and liver, interstitial prominence of the lungs, and echocardiogram was obtained as there was some concern for possible CHF. Echocardiogram on November 18 is essentially unchanged from previous echocardiogram shows LV ejection fraction 60%, mild to moderate MR , and mild TR with RVSP 35 mmHg. Current Visit: Yes (5) Hypertension Status: Chronic Assessment and plan: Blood pressure is well controlled. Continue current medication regimen. Current Visit: Yes (6) Hypothyroidism Status: Chronic Assessment and plan: Chronic. Current Visit: Yes (7) GERD (gastroesophageal reflux disease) Status: Inactive Assessment and plan: PPI continued. Current Visit: Yes Cardiology - PN: Subj Interval history: PRIMARY FORMAL WAITER/WAITRESS: DR. HARRISON SUMMARY: Ms. Alatorre is an 89-year-old white female with risk factors including age, hypertension, family history of CAD. Past medical history includes chronic atrial fibrillation, hypothyroidism, GI bleeding. Patient is chronically anticoagulated with Eliquis. Patient was admitted to the hospital on November 12 with rectal pain, and subsequently found to have diverticulitis with abscess. Per surgical services, patient has now had a drain placed, symptoms have improved, and drain was removed on November 19. Eliquis was resumed on the evening of November 18. Cardiology was asked to see as patient has history of atrial fibrillation and requires chronic anticoagulation. October UPDATE: Ms. Alatorre is doing well this morning, and she has no complaint. Her appetite is good. Denies chest pain, shortness of breath. No signs of bleeding or other since restarting Eliquis on the . CBC unremarkable. Hypokalemia resolved today K+ is 4.1. Magnesium 2.0. Creatinine is 1.0 with GFR 49. Systolic BP ranging 115-135 mmHg. Current Medications Albuterol/Ipratropium (Duoneb) 3 ml RESP TX RT Q4H PRN PRN Reason: Shortness of Breath/Wheezing Apixaban (Eliquis) 2.5 mg PO BID [facility] Last Admin: 11/20/16 08:09 Dose: 2.5 mg Carvedilol (Coreg) 3.125 mg PO BID [facility] Last Admin: 11/20/16 08:09 Dose: 3.125 mg Ciprofloxacin (Ciloxan Oph Soln) 1 drop LEFT EYE BID [facility] Last Admin: 11/20/16 08:12 Dose: 1 drop Furosemide (Lasix Inj) 20 mg IV BID DIURETIC [facility] Last Admin: 11/20/16 08:08 Dose: 20 mg Gabapentin (Neurontin Cap/Tab) 300 mg PO TID [facility] Last Admin: 11/20/16 08:09 Dose: 300 mg Hydrocortisone (Anusol Hc Cream) 1 applic TOP TID PRN PRN Reason: Hemorrhoids Last Admin: 11/20/16 08:12 Dose: 1 applic Magnesium Sulfate 2 gm/ Premix 50 mls @ 25 mls/hr IV .PER PROTOCOL PRN; Protocol PRN Reason: Per Protocol Last Infusion: 11/13/16 10:38 Dose: Infused Magnesium Sulfate 4 gm/ Premix 100 mls @ 25 mls/hr IV .PER PROTOCOL PRN; Protocol PRN Reason: Per Protocol Cefepime HCl 2,000 mg/ Sodium (Chloride) 100 mls @ 200 mls/hr IV Q12H [facility] Last Admin: 11/20/16 04:07 Dose: 100 mls/hr Montelukast Sodium (Singulair Tab) 10 mg PO BEDTIME [facility] Last Admin: 11/19/16 21:51 Dose: 10 mg Nystatin/Zinc Oxide (Skin Protectant Mixture) 1 applic TOP BID [facility] Last Admin: 11/20/16 08:12 Dose: 1 applic Ondansetron HCl (Zofran Inj) 4 mg IV Q4H PRN PRN Reason: Nausea Last Admin: 11/17/16 14:39 Dose: 4 mg Pantoprazole Sodium (Protonix Inj) 40 mg IV DAILY [facility] Last Admin: 11/20/16 08:12 Dose: 40 mg Pantoprazole Sodium (Protonix Tab) 40 mg PO BEDTIME [facility] Last Admin: 11/19/16 21:51 Dose: 40 mg Potassium Chloride (K Dur) 20 meq PO .PER PROTOCOL PRN; Protocol PRN Reason: Per Protocol Last Admin: 11/19/16 12:45 Dose: 20 meq Potassium Chloride (K Dur) 20 meq PO BID [facility] Last Admin: 11/20/16 08:09 Dose: 20 meq Temazepam (Restoril) 7.5 mg PO BEDTIME PRN PRN Reason: Sleep Thyroid (Guadalupe Thyroid) 90 mg PO QAM [facility] Last Admin: 11/20/16 08:08 Dose: 90 mg Tramadol HCl (Ultram) 50 mg PO Q6H PRN PRN Reason: Pain Last Admin: 11/15/16 12:59 Dose: 50 mg Exam (Progress Note) - Constitutional Vitals: Period Temp Pulse Resp BP Sys/Conroy Pulse Ox Last 24 Hr 97.0 F-98.9 F 70-82 18-20 107-151/65-88 93-97 Exam: General: Present: No Distress HEENT: Present: PERRL, Normocephaly . Absent: Pallor Neck: Present: Supple Neck, Midline Trachea, No JVD/HJR, No Masses, No Bruit Cardiac: Present: Irregularly Regular. No murmur. Absent: Tachycardia, Bradycardia Lungs: Present: Clear on auscultation. No Wheeze, Rales, Rhonchi. Absent: Oxygen Neuro: Present: Grossly Intact. She is alert and oriented. Abdomen: Present: Soft, Active Bowel Sounds, No Masses, No Pulsations/Bruits. Absent: Ascites, Tender, Firm, Distended. Skin: Warm and dry, intact. No rash or suspicious lesion. Musculoskeletal: Present: No Fluid Collection Extremities: Present: No Clubbing, No Cyanosis, Normal Upper Extr. Pulses (3+ bilateral), Normal Lower Extr. Pulses (3+ bilaterally), no lower extremity edema. Result/EKG - Labs CBC & BMP: 11/20/16 06:04 11/20/16 06:04 Lab Results: I have reviewed the past 24 hour labs Labs: Laboratory Results - last 24 hr 11/19/16 11/20/16 11/20/16 10:41 06:04 06:04 WBC 7.2 RBC 4.20 Hgb 12.6 Hct 37.9 MCV 90.2 MCH 30 MCHC 33.2 RDW 13.5 Plt Count 225 MPV 9.7 Neut % (Auto) 50.3 Lymph % (Auto) 22.7 Coffey % (Auto) 19.4 H Eos % (Auto) 5.7 Baso % (Auto) 1.1 H Neut # (Auto) 3.6 Lymph # (Auto) 1.6 Coffey # (Auto) 1.4 H Eos # (Auto) 0.4 Baso # (Auto) 0.1 Total Counted 100 Immature Gran % 0.8 Nucleated RBC % 0.0 Immature Gran # 0.06 Segmented Neutrophils 50 Lymphocytes 23 Monocytes 21 H Eosinophils 5 Basophils 1.0 H Nucleated RBCs # 0.00 Platelet Estimate Normal Hypochromasia 1+ Microcytosis Slight Sodium 133 L 134 L Potassium 3.1 L 4.1 Chloride 88 L 93 L Carbon Dioxide 36 H 31 Anion Gap 12.1 14.1 BUN 22 H 22 H Creatinine 1.30 H 1.00 GFR Calculation 36 49 BUN/Creatinine Ratio 16.00 22.00 H Glucose 173 H 99 Calculated Osmolality 272.4 L 270.2 L Calcium 7.8 L 8.2 L Magnesium 1.8 2.0 - EKG EKG results: interpreted by me, no acute changes EKG shows: atrial fibrillation Quality Measures - VTE Contraindication to Pharmacological VTE Prophylaxis: Clinical assessment deems Pt at low risk, no prophalaxis needed Specialty Discharge - Follow Up or Referrals Follow up with: Miguel Ángel Wright MD [Physician] - 11/27/16 9:15 am Sukh Suarez Jr., MD [Physician] - 12/04/16 2:15 pm Yuli Cameron Michael, MD, personally performed the services described in this documentation, ascribed by Sidra Raya RN in my presence, and it is both accurate and complete 313 .
== END 2016-11-20 14:05 | disposition home or self-care (01) | DRG 391 ==
LOC: EDBD → EDUNIT# → N.ED 09:52 → MERGE 12:39 → SUATTDRO 12:39 → N.EDINP 12:39 → N.5E 13:49
PROVIDERS: ADMIT Internal Medicine; ATTEND Internal Medicine